=== PATIENT | female | born 1960 | race Caucasian/White ===

== ENCOUNTER → 2016-03-24 | Outpatient (CLI) | payer OTHER ==
--- NOTE | 2016-03-26 10:10 | MM ---
Reason for exam: screening (asymptomatic). Last mammogram was performed 1 year and 11 months ago. History: Patient is postmenopausal. Family history of premenopausal breast cancer in aunt at age 40. Benign excisional biopsy of the right breast, 1984. Took estrogen for 3 years beginning at age 45. Took progesterone for 3 years beginning at age 45. Physical Findings: A clinical breast exam by your physician is recommended on an annual basis and results should be correlated with mammographic findings. MG Screening Mammo w CAD Bilateral CC and MLO view(s) were taken. Prior study comparison: May 04, 2014, bilateral MG screening mammo w CAD. December 28, 2012, bilateral digital screening mammo w/CAD. There are scattered fibroglandular densities. Asymmetry greater in the left breast. No significant changes when compared with prior studies. ASSESSMENT: Benign, BI-RAD 2 RECOMMENDATION: Routine screening mammogram of both breasts in 1 year.
== END | disposition home or self-care (01) ==
LOC: RADMAMWWP 13:12
PROVIDERS: ATTEND Family Medicine
DX: Z12.31 Encounter for screening mammogram for malignant neoplasm of breast (principal)

== ENCOUNTER → 2016-07-17 | Outpatient (CLI) | payer OTHER ==
--- NOTE | 2016-07-20 08:36 | XR ---
EXAM TYPE: LUMBAR SPINE X RAY SERIES COMPARISON: NONE HISTORY: Chronic pain TECHNIQUE: 4 views are submitted. FINDINGS: Alignment is anatomic. The pedicles are intact. The transverse processes are intact. There is no s pondylolysis or spondylolisthesis. Sclerotic density overlying the left sacrum likely related to bon [place] island. Hypertrophic changes of the spine noted. Facet arthropathy at L4-5 and L5-S1. IMPRESSION: 1. Multilevel hypertrophic changes and facet arthropathy. Consider follow-up MRI.
--- NOTE | 2016-07-20 08:37 | XR ---
EXAMINATION TYPE: XR Hip Complete RT DATE OF EXAM: 07/17/2016 11:51 AM COMPARISON: NONE HISTORY: Pain TECHNIQUE: 2 views submitted FINDINGS: There is no evidence of erosive change or acute fracture. There is severe in near complete loss of joint space along the superior margin of the joint space. Hy pertrophic change of the acetabulum noted. Sclerotic density involving the greater trochanter likely the basis of bone island. IMPRESSION: 1. Severe arthritic changes correlate for osteoarthritis. Correlate for femoral acetabular impingemen t.
== END ==
LOC: RADXRYALE 11:32
PROVIDERS: ATTEND Family Medicine
DX: M46.86 Other specified inflammatory spondylopathies, lumbar region (principal); M16.11 Unilateral primary osteoarthritis, right hip
CPT/HCPCS: 72110; 73502

== ENCOUNTER → 2016-08-22 | Outpatient (CLI) | payer OTHER ==
--- NOTE | 2016-08-22 18:53 | MR ---
EXAMINATION TYPE: MR hip RT wo con DATE OF EXAM: 08/22/2016 COMPARISON: Right hip x-ray July 17, 2016. HISTORY: Right hip unilateral primary osteoarthritis per order. Right hip pain with limited movement for 3 months per patient. Standard multiplanar, multisequence MRI departmental protocol Multiplanar, multisequence images of the pelvis focusing on right hip were acquired. FINDINGS: Heterogeneity of bone marrow signal consistent with red marrow reconversion is identified t hroughout pelvis and both femurs. No suspicious edema visualized right proximal femur is seen. There are moderate-sized symmetric hip joint effusions identified bilaterally. There is moderate to severe axial joint space loss in both hips. No significant spurring or subchondral cystic change is present. Mild increased fluid is seen at level of greater trochanters bilaterally. No suspicious increased flu id is seen at level of lesser trochanters. Labrum appears grossly intact given limitation of nonarthr ogram study. Femoral head shapes are maintained bilaterally. Muscle bulk in the bilateral thighs is s ymmetric and felt within normal limits. No suspicious groin adenopathy is present. No concerning srinivasa l or fat-containing inguinal hernia is seen bilaterally. There is no suspicious bowel dilatation. Visualized uterus is felt within normal limits. No pelvic fl uid collection is seen. No pelvic adenopathy is noted. IMPRESSION: Moderate to severe osteoarthritic changes as detailed above
== END | disposition home or self-care (01) ==
LOC: RADMRIMAIN 11:21
PROVIDERS: ATTEND Family Medicine
DX: M16.11 Unilateral primary osteoarthritis, right hip (principal)

== ENCOUNTER → 2016-10-30 | Outpatient (CLI) | payer OTHER ==
[2016-10-30 13:44] LABS: CH 32.1; CHCM 32.9; HCT 45.3 % (34.0-46.0); HDW 2.21; HGB 14.9 gm/dL (11.4-16.0); MCH 32.2 pg (25.0-35.0); MCHC 32.9 g/dL (31.0-37.0); Mean Platelet Volume 8.7; RBC 4.62 m/uL (3.80-5.40); RDW 13.5 % (11.5-15.5); WBC 10.2 k/uL (3.8-10.6)
[2016-10-30 13:50] LABS: Partial Thromboplastin Time 24.8 sec (22.0-30.0); Prothrombin Time 10.1 sec (9.0-12.0)
[2016-10-30 13:58] LABS: Amorphous Sediment,Urine Few /hpf; Appearance,Urine Cloudy (Clear); Bilirubin,Urine Negative (Negative); Calcium Oxalate Crystals,Urine Few /hpf; Glucose,Urine (UA) Negative (Negative); Ketones,Urine Negative (Negative); Leukocyte Esterase,Urine Moderate (Negative); Nitrite,Urine Negative (Negative); PH, Urine 5.5 (5.0-8.0); Particle Count 3495; Protein,Urine Negative (Negative); RBC,Urine 3 /hpf (0-5); Specific Gravity,Urine 1.014 (1.001-1.035); Squamous Epithelial Cell,Urine 1 /hpf (0-4); UA Billing (MACRO vs. MICRO) MICRO; Urobilinogen,Urine <2.0 mg/dL (<2.0); WBC,Urine 3 /hpf (0-5)
[2016-10-30 14:02] LABS: ALT 54 U/L (9-52); AST 32 U/L (14-36); Alkaline Phosphatase 95 U/L (38-126); Anion Gap 14 mmol/L; Blood Urea Nitrogen 11 mg/dL (7-17); Calcium 11.2 mg/dL (8.4-10.2); Carbon Dioxide 29 mmol/L (22-30); Chloride 101 mmol/L (98-107); Glucose 62 mg/dL (74-99); Non-African American GFR(MDRD) >60 (>60 ml/min/1.73 sqM); Potassium 4.4 mmol/L (3.5-5.1); Sodium 144 mmol/L (137-145); Total Bilirubin 1.3 mg/dL (0.2-1.3); Total Protein 7.4 g/dL (6.3-8.2)
== END | disposition home or self-care (01) ==
LOC: LABWHC1 12:42
PROVIDERS: ATTEND Orthopaedic Surgery
DX: Z01.812 Encounter for preprocedural laboratory examination (principal)
CPT/HCPCS: 80053; 81001; 85027; 85610; 85730; 87070

== ENCOUNTER 2016-11-09 07:50 | Inpatient (IN) | payer OTHER ==
[2016-11-02 11:46] VITALS: BMI 29.9
[~2016-11-09 07:50] MED LIST: ACETAMINOPHEN TAB 500 MG TAB PO ONE; DEXAMETHASONE SOD PHOSPHATE 10 MG/ML 1 ML VIAL IV ONE; HYDROmorphone 1 MG/ML 1 ML SYRINGE IVP PRN; LIDOCAINE 1% 20 ML VIAL (10MG/ML) FOR IV START INTRADERMA PRN; MELOXICAM 7.5 MG TAB PO ONE; MIDAZOLAM 2 MG/2 ML VIAL IV PRN; ONDANSETRON 4 MG/2 ML VIAL IVP ONE; SCOPOLAMINE 1.5MG/72HR PATCH TRANSDERM ONE; TRANEXAMIC ACID 1,000 MG in SODIUM CHLORIDE 0.9% 100 ML IVPB ONE; ceFAZolin 2 GM in SODIUM CHLORIDE 0.9% 100 ML IVPB ONE
[2016-11-09] MEDS: LACTATED RINGERS 1,000 ML IV SCH (08:20)
[2016-11-09 08:22] LABS: Glucose,Whole Blood 126 mg/dL (75-99)
[2016-11-09] MEDS ORDERED: ONDANSETRON 4 MG/2 ML VIAL IVP PRN (09:50)
[2016-11-09] MEDS ORDERED: HYDROmorphone 1 MG/ML 1 ML SYRINGE IVP PRN ×3 (09:50)
[2016-11-09] MEDS ORDERED: MAGNESIUM HYDROXIDE 2,400 MG/10 ML CUP PO PRN (09:50)
[2016-11-09] MEDS ORDERED: hydrOXYzine PAMOATE 25 MG CAP PO PRN (09:50)
[2016-11-09] MEDS ORDERED: DIAZEPAM 5 MG TAB PO PRN ×2 (09:50)
[2016-11-09] MEDS ORDERED: NALOXONE 0.4 MG/ML 1 ML VIAL IV PRN (09:50)
[2016-11-09] MEDS ORDERED: TRANEXAMIC ACID 1,000 MG/10 ML VIAL ONE (10:06)
[2016-11-09] MEDS ORDERED: MIDAZOLAM 2 MG/2 ML VIAL ONE (10:06)
[2016-11-09] MEDS ORDERED: PROPOFOL 10 MG/ML 20 ML VIAL IV ONE (10:06)
[2016-11-09] MEDS ORDERED: SODIUM CHLORIDE 0.9% 100 ML BAG ONE (10:06)
[2016-11-09] MEDS ORDERED: fentaNYL (PF) 50 MCG/ML 2 ML AMP ONE (10:06)
[2016-11-09] MEDS: ROPIVACAINE 246.25 MG, EPINEPHrine 0.5 MG, KETOROLAC 30 MG, cloNIDine HCL/PF 80 MCG, WA... MISCELLANE ONE ×10 (10:37→11:21)
[2016-11-09] MEDS ORDERED: ceFAZolin 3,000 MG in SODIUM CHLORIDE 0.9% IRRIGATIO 3,000 ML IRRIGATION ONE (10:38)
[2016-11-09] MEDS ORDERED: LACTATED RINGERS 1,000 ML IV ONE (10:57)
--- NOTE | 2016-11-09 11:34 | P.OP ---
Date of Procedure: 11/09/16 Preoperative Diagnosis: Severe osteoarthritis right hip Postoperative Diagnosis: Severe osteoarthritis right hip Procedure(s) Performed: Right total hip arthroplasty with a direct anterior approach Implants: Caldwell and nephew Polarstem size 4 standard Caldwell [employer]hew R3, 3 hole acetabular shell, 52 mm [employer]dwell [employer]hew reflection 6.5 mm cancellus screw, 20 mm 2 [employer]dwell [employer]hew R3, XLPE 20 acetabular liner [employer]dwell [employer]hew Oxinium femoral head 36 m, +8 All components were press-fit. The articulation is ceramic on polyethylene. Anesthesia: spinal Surgeon: Benito Colorado Floorwalker #1: Yvonne Coe Estimated Blood Loss (ml): 275 (122 Returned with cell saver) Pathology: other (Femoral head) Condition: stable Disposition: PACU Indications for Procedure: After failure of conservative treatment we discussed the surgical and nonsurgical treatment options at length. Patient wishes to proceed with a total hip arthroplasty with a direct anterior approach. Complications specific to this procedure were discussed at length, including but not limited to infection, leg length discrepancy, dislocation, and nerve injury. Patient is aware of all these complications and informed consent was obtained Operative Findings: The operative findings are consistent with severe osteoarthritis of the right hip Description of Procedure: Patient was seen and evaluated in the preoperative area, consent was reviewed, and the surgical site was marked with a skin marker. Patient was then brought to the operating room and given prophylactic antibiotics intravenously. 1 g of Tranexamic acid was also given. A spinal anesthetic was administered by the anesthesia department. The patient was then placed on the [place] table with the bony prominences well-padded. The hip area was then prepped and draped in usual sterile fashion. A universal timeout was then performed, which confirmed the patient's name, surgical site, ALLERGIES, and procedure being performed. Next the incision site was located at 1 cm distal and 1 cm lateral to the anterior superior iliac spine. The skin and subcutaneous tissues were sharply incised. Incision was carefully dissected down to the fascia overlying the tensor fascia santos muscle. This fascia was then incised in line with the incision. Next, using blunt finger dissection, the tensor fascia santos muscle was dissected off its investing fascia. The muscle was then carefully retracted laterally with a cobra retractor over the lateral neck of the femur. Next, the circumflex vessels were identified and cauterized using the AquaMantis device. The anterior hip capsule was then exposed. The capsule was then opened and an inverted T fashion. Cobra retractors were then placed intracapsularly. The proximal femur was then visualized. The femoral neck was then osteotomized appropriate level above the lesser trochanter. Small amount of traction was placed with the [place] table. A small wedge of bone was then removed from the remaining femoral head. Next, using a corkscrew femoral head was easily removed from the acetabulum. On gross visual inspection, the femoral head had complete loss of articular cartilage in multiple periarticular osteophytes. Attention was then turned to the acetabulum. the acetabulum was exposed and any remaining labrum was excised. Sequential reaming of the acetabulum was performed using fluoroscopic guidance. When the appropriate size was reached, a trial was then placed. The position and fit of the trial was checked with fluoroscopy. The trial was then removed. Then, using fluoroscopic guidance, the final implant was impacted at 20 of anteversion and 40 of abduction, and fully seated in the acetabulum. 2 screws were then placed in the acetabulum. Again fluoroscopy was used to check position of the screws. Next, the liner was then impacted, with a 20 elevated liner located in the anterior superior quadrant. Component locking was confirmed. Attention was then directed to the femur. With the aid of the [place] table, the femur was externally rotated to approximately 130, extended, and abducted under the opposite leg. A side hook was then placed under the proximal femur, and the side hook elevator was used to elevate the proximal femur. Retractors were then placed. A capsular release was performed, as well as a release of the conjoined tendon, which afforded excellent visualization of the proximal femur. Next, a box osteotome was used to lateralize the proximal femur. A handle assembler was then used to locate the femoral canal. Sequential broaching was then performed with appropriate size which afforded excellent fixation in the proximal femur. A trial was then placed with appropriate head and neck, and the hip was gently reduced with the aid of the [place] table. Fluoroscopy was then used to check position of the components, as well as to ensure equal leg lengths. The hip was then gently dislocated and the trials were then removed. Final implants were then impacted and the hip was again reduced. Final fluoroscopic x-rays confirmed that the components were in anatomic position, as well as equal leg lengths. The hip was also taken through range of motion, and found to be stable. The hip was then copiously irrigated with antibiotic solution with pulsatile lavage. The hip was then irrigated with Irrisept solution. The soft tissues were then injected with a ropivacaine solution, which consisted of 246.25 mg of ropivacaine, 0.5 mg of epinephrine, 30 mg of Toradol, 80 g of clonidine, and 48.45 mL of sterile water, for a total of 100 mL of fluid injected. A second dose of 1 g of Tranexamic acid was also given. the fascia was then closed with 2-0 strata fix suture. The subcutaneous tissue was closed with 3-0 Vicryl. The subcuticular tissue was closed with 3-0 strata fix suture. The skin was then closed with Dermabond tape. The patient was then transferred to the recovery room in stable condition. The review assistant JON Rodney was required due to the complexity of surgery, and the need for skilled surgical instrument maker for positioning, draping, exposure, retraction, and closure of the wound.
--- NOTE | 2016-11-09 11:38 | XR ---
EXAMINATION TYPE: XR Hip Limited RT DATE OF EXAM: 11/09/2016 COMPARISON: NONE HISTORY: Postop hip TECHNIQUE: One view submitted. FINDINGS: There is a postsurgical change in near anatomic alignment. There is soft tissue edema and emphysema. IMPRESSION: 1. Postoperative change. Appears in near-anatomic alignment.
--- NOTE | 2016-11-09 12:20 | XR ---
EXAMINATION TYPE: XR Hip Limited RT DATE OF EXAM: 11/09/2016 COMPARISON: NONE HISTORY: Postop TECHNIQUE: One view submitted. FINDINGS: There is a prosthetic hip in near anatomic alignment. There is soft tissue edema and emphysema. IMPRESSION: 1. Postoperative change. Appears in near-anatomic alignment.
[2016-11-09] MEDS: HYDROcodone/APAP 7.5-325MG 1 EACH TAB PO PRN ×2 (15:13→20:26)
[2016-11-09] MEDS: SODIUM CHLORIDE 0.9% 1,000 ML IV SCH ×2 (15:16→21:35)
[2016-11-09] MEDS ORDERED: DOCUSATE 100 MG CAP PO PRN (15:26)
[2016-11-09] MEDS ORDERED: IPRATROPIUM-ALBUTEROL 3 ML NEB INHALATION PRN (15:29)
[2016-11-09] MEDS: IPRATROPIUM-ALBUTEROL 3 ML NEB INHALATION SCH ×2 (16:45→21:11)
[2016-11-09 17:12] LABS: Glucose,Whole Blood 321 mg/dL (75-99)
[2016-11-09] MEDS ORDERED: ALBUTEROL NEBULIZED 2.5 MG/3 ML INHALATION PRN (17:23)
[2016-11-09] MEDS ORDERED: INSULIN LISPRO (humaLOG) 300 UNIT/3 ML VIAL SQ SCH (17:30)
[2016-11-09] MEDS: ceFAZolin 2 GM in SODIUM CHLORIDE 0.9% 100 ML IVPB SCH ×2 (19:04→23:16)
[2016-11-09] MEDS: metFORMIN 500 MG TAB PO SCH (19:04)
[2016-11-09] MEDS: INSULIN LISPRO (humaLOG) 300 UNIT/3 ML VIAL SQ SCH ×2 (19:08→21:19)
[2016-11-09] MEDS ORDERED: SENNOSIDES-DOCUSATE SODIUM 1 EACH TAB PO SCH (21:00)
[2016-11-09] MEDS ORDERED: metFORMIN 500 MG TAB PO SCH (21:00)
[2016-11-09] MEDS ORDERED: GABAPENTIN 300 MG CAP PO SCH (21:00)
[2016-11-09] MEDS ORDERED: TEMAZEPAM 30 MG CAP PO SCH (21:00)
[2016-11-09 21:17] LABS: Glucose,Whole Blood 233 mg/dL (75-99)
[2016-11-09] MEDS: ASPIRIN 325 MG TAB PO SCH (21:18)
[2016-11-10 04:14] VITALS: TEMP 98.3
[2016-11-10] MEDS: HYDROcodone/APAP 7.5-325MG 1 EACH TAB PO PRN ×3 (06:00→12:05)
[2016-11-10 06:51] LABS: Glucose,Whole Blood 126 mg/dL (75-99)
[2016-11-10 07:06] VITALS: BP 119/67; PULSE 75; RESP 16
[2016-11-10] MEDS: metFORMIN 500 MG TAB PO SCH (07:09)
[2016-11-10] MEDS: ASPIRIN 325 MG TAB PO SCH (07:10)
[2016-11-10] MEDS: IPRATROPIUM-ALBUTEROL 3 ML NEB INHALATION SCH ×2 (07:14→11:50)
[2016-11-10 07:38] LABS: Basophils % (A) 0 %; CH 31.3; CHCM 32.7; Eosinophils # (A) 0.1 k/uL (0-0.7); Eosinophils % (A) 1 %; HCT 30.3 % (34.0-46.0); HDW 2.23; Luc # (Auto) 0.18; Luc % (Auto) 2; Lymphocytes # (A) 3.2 k/uL (1.0-4.8); Lymphocytes % (A) 26 %; MCH 32.1 pg (25.0-35.0); MCHC 33.3 g/dL (31.0-37.0); MCV 96.3 fL (80.0-100.0); Mean Platelet Volume 8.3; Monocytes # (A) 0.6 k/uL (0-1.0); Monocytes % (A) 5 %; Neutrophils # (A) 8.2 k/uL (1.3-7.7); Neutrophils % (A) 66 %; RBC 3.14 m/uL (3.80-5.40); RDW 13.1 % (11.5-15.5); WBC 12.4 k/uL (3.8-10.6); WBC (Perox) 13.45
[2016-11-10 07:46] LABS: HGB 10.1 gm/dL (11.4-16.0)
[2016-11-10] MEDS: LACTATED RINGERS 1,000 ML IV SCH (08:17)
[2016-11-10] MEDS: INSULIN LISPRO (humaLOG) 300 UNIT/3 ML VIAL SQ SCH (08:20)
--- NOTE | 2016-11-10 08:28 | P.DS ---
Providers Date of admission: 11/09/16 07:50 Expected date of discharge: 11/10/16 Attending physician: Benito Colorado Consults: 11/09/16 09:50 Consult Physician Routine Consulting Provider: Benito Gonzalez Consult Reason/Comments: medical management Do you want consulting provider notified?: Yes 11/09/16 14:27 Consult Physician Routine Consulting Provider: Laura Hall Consult Reason/Comments: medical management Do you want consulting provider notified?: Yes 11/09/16 15:26 Consult Physician Routine Consulting Provider: Laura Hall Consult Reason/Comments: medical managment Do you want consulting provider notified?: Already Contacted Primary care physician: Benito Gonzalez - Discharge Diagnosis(es) (1) Primary osteoarthritis of right hip Current Visit: Yes Status: Acute (2) S/P total hip arthroplasty Current Visit: Yes Status: Acute Hospital Course: This is a 56-year-old female with known history of degenerative arthritis of the right hip. The patient presents for evaluation. After discussion and consideration patient elects to proceed with total hip arthroplasty. The patient is seen preoperatively by Dr. Colorado and cleared for surgery. Patient is admitted to [facility] on 11/09/2016 for total hip arthroplasty. The procedures performed without complication or sequelae. The patient is doing well postoperatively. Labs and vital signs are stable on day of discharge. On day of discharge patient's hip incision is healing well. There is minimal erythema. There is minimal drainage noted at this time. There is minimal soft tissue swelling to the hip and thigh. Patient has full foot and ankle motion without difficulty or pain. Neurovascular status to the right lower extremity is intact. Patient is discharged home in good condition.Please see med rec for accurate list of home medications. Plan - Discharge Summary New Discharge Prescriptions: New Aspirin 325 mg PO BID #60 tab HYDROcodone/APAP 7.5-325MG [Snyder 7.5-325] 1 - 2 tab PO Q4-6H PRN #90 tab PRN Reason: Pain Sennosides-Docusate Sodium [Senokot-S] 1 tab PO BID #60 tablet No Action Gabapentin [Neurontin] 900 mg PO HS Ascorbic Acid [Vitamin C] 500 mg PO DAILY Harcourt-3 Fatty Acids/Fish Oil [Fish Oil 1,000 mg Softgel] 2 cap PO DAILY Calcium Carbonate/Vitamin D3 [Calcium 600-Vit D3 400 Tablet] 2 tab PO DAILY metFORMIN HCL [Glucophage] 500 mg PO HS Cholecalciferol [Vitamin D3] 2,000 unit PO DAILY Docusate [Colace] 100 mg PO BID PRN PRN Reason: Constipation traMADol HCL [Ultram] 50 mg PO QID PRN PRN Reason: Pain Citalopram Hydrobromide [CeleXA] 40 mg PO DAILY metFORMIN HCL [Glucophage] 1,000 mg PO BID Glimepiride [Amaryl] 4 mg PO 1500 Niacin 1,000 mg PO DAILY Albuterol Nebulized [Ventolin Nebulized] 2.5 mg INHALATION RT-Q4H PRN PRN Reason: sob Temazepam [Temazepam] 30 mg PO HS Discharge Medication List Ascorbic Acid [Vitamin C] 500 mg PO DAILY 05/27/15 [History] Calcium Carbonate/Vitamin D3 [Calcium 600-Vit D3 400 Tablet] 2 tab PO DAILY [History] Gabapentin [Neurontin] 900 mg PO HS 05/27/15 [History] Harcourt-3 Fatty Acids/Fish Oil [Fish Oil 1,000 mg Softgel] 2 cap PO DAILY [History] Albuterol Nebulized [Ventolin Nebulized] 2.5 mg INHALATION RT-Q4H PRN 11/02/16 [ History] Cholecalciferol [Vitamin D3] 2,000 unit PO DAILY 11/02/16 [History] Citalopram Hydrobromide [CeleXA] 40 mg PO DAILY 11/02/16 [History] Docusate [Colace] 100 mg PO BID PRN 11/02/16 [History] Glimepiride [Amaryl] 4 mg PO 1500 11/02/16 [History] Niacin 1,000 mg PO DAILY 11/02/16 [History] metFORMIN HCL [Glucophage] 1,000 mg PO BID 11/02/16 [History] metFORMIN HCL [Glucophage] 500 mg PO HS 11/02/16 [History] traMADol HCL [Ultram] 50 mg PO QID PRN 11/02/16 [History] Temazepam [Temazepam] 30 mg PO HS 11/09/16 [History] Aspirin 325 mg PO BID #60 tab 11/10/16 [Rx] HYDROcodone/APAP 7.5-325MG [Snyder 7.5-325] 1 - 2 tab PO Q4-6H PRN #90 tab [Rx] Sennosides-Docusate Sodium [Senokot-S] 1 tab PO BID #60 tablet 11/10/16 [Rx] Follow up Appointment(s)/Referral(s): Benito Colorado DO [Doctor of Osteopathic Medicine] - 2 Weeks Activity/Diet/Wound Care/Special Instructions: Weightbearing as tolerated with walker May shower after 2 days if no drainage from the incision Follow-up with [facility] in 2 weeks with any questions or concerns
--- NOTE | 2016-11-10 08:52 | CONS ---
DATE OF CONSULT: 11/09/16 REASON FOR CONSULTATION: Advice regarding diabetes and other medical issues requested by orthopedic surgery. HISTORY OF PRESENT ILLNESS: This 56 -year-old woman with past medical history of multiple complex medical problems including asthma, diabetes and DJD, being followed by Dr. Gonzalez in the outpatient setting, was admitted after right total knee joint arthroplasty. There is no history of fever, rigors or chills. No history of headache, loss of consciousness or seizures. The patient is on Metformin at home. PAST MEDICAL HISTORY: History of asthma, diabetes, DJD. History of cholecystectomy. MEDICATIONS: Prior to admission include Home medications are: 1. Temazepam 30 mg q.h.s. 2. Ultram 50 mg q.i.d. prn. 3. Glucovance 100 mg b.i.d. and 500 mg po q.h.s. 4. Fish oil. 5. Amaryl 4 mg po. 6. Neurontin 900 mg q.h.s. 7. Colace 100 mg b.i.d. 8. Celexa 40 mg po b.i.d. 9. Vitamin D3 2000 units. 10. Vitamin C 500 mg daily. 11. Ventolin nebulizer. ALLERGIES: FOSAMAX, ELAVIL, TETRACYCLINE, ADHESIVE TAPES. FAMILY HISTORY: History of bladder cancer in the family. SOCIAL HISTORY: History of occasional alcohol. Previous history of smoking. REVIEW OF SYSTEMS: HEENT: No diminished vision. No diminished hearing. Cardiovascular system: No angina or palpitations. Respiratory: No cough, hemoptysis. GI: No nausea or vomiting. : No dysuria. Nervous system: No numbness or weakness. Allergy/Immunology: No asthma or hayfever. Musculoskeletal: As mentioned earlier. Hematology/oncology: No history of anemia. Endocrine: As mentioned earlier. Constitutional: As mentioned earlier. Dermatology: Negative. Rheumatology: Negative. Psychiatry: As mentioned earlier. PHYSICAL EXAMINATION: The patient is alert and oriented times three. Pulse 78. Blood pressure 120/68. Respiratory rate 16. Temperature 97.7. Pulse ox 91% on room air. HEENT: Conjunctivae normal. NECK: No JVD. CARDIOVASCULAR: S1, S2. No S3, no S4. RESPIRATORY: Breath sounds diminished at the bases. A few scattered rhonchi. No crackles. Abdomen soft. Nontender. No mass palpable. LEGS: Status post surgery. REO ASSET MANAGER: Higher functions as mentioned earlier. Moves all four limbs. No focal deficits. Lymphatics: No lymph nodes palpable in the neck and axilla. Skin: No ulcer, rash or bleeding. Labs are Accu-Cheks 126, 321. ASSESSMENT: 1. Status post right total knee joint arthroplasty. 2. Diabetes mellitus Type 2. 3. Asthma. 4. History of degenerative joint disease. RECOMMENDATIONS AND DISCUSSION: Continue the current medications, continue symptomatic treatment. Resume the home medications, insulin to scale. DVT prophylaxis. Incentive spirometry. We will follow the patient closely with you. The patient may be asked to follow up with the primary care physician closely after discharge. Thank you Dr. Colorado for letting us participate in the care of this patient. JYOTI
[2016-11-10] MEDS ORDERED: CHOLECALCIFEROL 1,000 UNIT TAB PO SCH (09:00)
[2016-11-10] MEDS ORDERED: CITALOPRAM HYDROBROMIDE 20 MG TAB PO SCH (09:00)
[2016-11-10] MEDS ORDERED: ASCORBIC ACID 500 MG TAB PO SCH (09:00)
[2016-11-10] MEDS ORDERED: MELOXICAM 7.5 MG TAB PO SCH (09:00)
[2016-11-10] MEDS ORDERED: CALCIUM CARB-VIT D 500MG-200UN 1 EACH TAB PO SCH (09:00)
[2016-11-10 11:18] LABS: Glucose,Whole Blood 129 mg/dL (75-99)
[2016-11-10 11:42] LABS: Hemoglobin A1C 6.3 % (4.2-6.1)
--- NOTE | 2016-11-10 14:10 | P.PN ---
Progress Note - Text Clarification on consult for Dr. Hall Assessment: 1.status post right hip arthroplasty related to degenerative arthritis of right hip
--- NOTE | 2016-11-10 14:16 | P.PN ---
Subjective Date of service 11/10/2016. Personal being dictated for Dr. Judd Interval history: This a 56-year-old female status post right hip arthroplasty related to degenerative arthritis of right hip. Doing very well. Ambulating in hallway, tolerating increase in exertion well. Denies lightheadedness dizziness or focal deficits. Denies chest pain, palpitations or increasing shortness of breath. Good diet intake with Positive bowel movement. Objective - Vital Signs Vital signs: Vital Signs Temp 98.3 F 11/10/16 04:12 Pulse 75 11/10/16 07:05 Resp 16 11/10/16 07:05 BP 119/67 11/10/16 07:05 Pulse Ox 95 11/10/16 07:05 Intake & Output 11/09/16 11/10/16 11/10/16 18:59 06:59 18:59 Intake Total 1301 2170 Output Total 275 600 Balance 1026 1570 Weight 94.801 kg Intake: IV 1301 Intake, IV Titration 660 Amount Sodium Chloride 0.9% 1, 560 000 ml @ 70 mls/hr IV . [id number] [facility] Rx#:[id number] ceFAZolin 2 gm In Sodium 100 Chloride 0.9% 100 ml @ 100 mls/hr IVPB ONCE ONE Rx#:[id number] Oral 1510 Output: Urine 600 Estimated Blood Loss 275 Other: Voiding Method Toilet # Voids 4 - Exam PHYSICAL EXAM: VITAL SIGNS: [As above] GENERAL: [Sitting up in bed, no acute distress] HEENT: Conjunctivae normal. eyes normal. NECK: No JVD. No thyroid enlargement. No LNs CARDIOVASCULAR: S1, S2 muffled. No murmur RESPIRATION: Breath sounds diminished in the bases. No rhonchi or crackles. No bronchial breathing. ABDOMEN: Soft, nontender . No guarding. no masses palpable. No ascites, No hepatosplenomegaly.Bowel sounds heard. LEGS: No edema. no swelling NERVOUS SYSTEM: Cranial N 2-12 grossly normal. Moves all 4 limbs. No focal deficits. No sensory deficit. Skin: no ulcer, no rash Joints: No active swelling. No inflammation. - Labs CBC & Chem 7: 11/10/16 06:37 Labs: Abnormal Lab Results - Last 24 Hours (Table) 11/09/16 11/09/16 11/10/16 Range/Units 17:10 21:15 06:37 WBC (3.8-10.6) k/uL RBC (3.80-5.40) m/uL Hgb (11.4-16.0) gm/dL Hct (34.0-46.0) % Neutrophils # (1.3-7.7) k/uL POC Glucose (mg/dL) 321 H 233 H (75-99) mg/dL Hemoglobin A1c 6.3 H (4.2-6.1) % 11/10/16 11/10/16 11/10/16 Range/Units 06:37 06:47 11:15 WBC 12.4 H (3.8-10.6) k/uL RBC 3.14 L (3.80-5.40) m/uL Hgb 10.1 L D (11.4-16.0) gm/dL Hct 30.3 L (34.0-46.0) % Neutrophils # 8.2 H (1.3-7.7) k/uL POC Glucose (mg/dL) 126 H 129 H (75-99) mg/dL Hemoglobin A1c (4.2-6.1) % Assessment and Plan Plan: 1.status post right hip arthroplasty related to degenerative arthritis of right hip 2. Diabetes mellitus type 2 3. Asthma Plan: Continue on current medication regime ,monitoring and symptomatic treatment. Patient is being discharged home by orthopedics today. Follow-up with PCP in 1 week. Pain management and anticoagulation as per surgery. Incentive spirometer every hour 10 while awake, readvised. Further recommendations to follow. The impression and plan of care has been dictated as directed. : I performed a H&P examination of this patient and discussed the same with the dictator. I agree with the dictator's note. Any additional findings/opinions/ etc. will be noted.
[2016-11-10] MEDS ORDERED: GLIMEPIRIDE 4 MG TAB PO SCH (15:00)
== END 2016-11-10 13:20 | disposition home health service (06) | DRG 470 ==
LOC: 2ORMAIN 07:50 → 3SUR 13:54
PROVIDERS: ADMIT Orthopaedic Surgery; ATTEND Orthopaedic Surgery
PROC: 30233N0 Transfusion of Autologous Red Blood Cells into Peripheral Vein, Percutaneous Approach (ICD-10-PCS; 2016-11-09)
PROC: 0SR904A Replacement of Right Hip Joint with Ceramic on Polyethylene Synthetic Substitute, Uncemented, Open Approach (ICD-10-PCS; principal; 2016-11-09 09:45)
DX: M16.11 Unilateral primary osteoarthritis, right hip (principal); E11.9 Type 2 diabetes mellitus without complications; M25.751 Osteophyte, right hip; J45.909 Unspecified asthma, uncomplicated; F41.9 Anxiety disorder, unspecified; Z96.651 Presence of right artificial knee joint; Z90.49 Acquired absence of other specified parts of digestive tract; Z87.891 Personal history of nicotine dependence; Z80.52 Family history of malignant neoplasm of bladder; Z79.899 Other long term (current) drug therapy; Z88.1 Allergy status to other antibiotic agents; Z88.8 Allergy status to other drugs, medicaments and biological substances; Z91.048 Other nonmedicinal substance allergy status; Z79.84 Long term (current) use of oral hypoglycemic drugs; Z83.3 Family history of diabetes mellitus; Z90.722 Acquired absence of ovaries, bilateral
CPT/HCPCS: 73501; 83036; 85025; 86850; 86891; 86900; 86901; 88300

== ENCOUNTER → 2017-04-14 | Outpatient (CLI) | payer OTHER ==
[2017-04-14 13:16] LABS: HCT 40.3 % (34.0-46.0); HGB 12.8 gm/dL (11.4-16.0); MCH 30.9 pg (25.0-35.0); MCHC 31.9 g/dL (31.0-37.0); MCV 96.9 fL (80.0-100.0); Platelet Count 234 k/uL (150-450); RBC 4.16 m/uL (3.80-5.40); RDW 13.6 % (11.5-15.5); WBC 8.5 k/uL (3.8-10.6)
[2017-04-14 13:24] LABS: Partial Thromboplastin Time 23.7 sec (22.0-30.0); Prothrombin Time 9.8 sec (9.0-12.0)
[2017-04-14 13:27] LABS: Appearance,Urine Cloudy (Clear); Bilirubin,Urine Negative (Negative); Blood,Urine Negative (Negative); Calcium Oxalate Crystals,Urine Few /hpf; Color,Urine Yellow; Glucose,Urine (UA) Negative (Negative); Hyaline Casts,Urine 3 /lpf (0-2); Ketones,Urine Negative (Negative); Leukocyte Esterase,Urine Moderate (Negative); Mucus,Urine Rare /hpf; Nitrite,Urine Negative (Negative); PH, Urine 5.5 (5.0-8.0); Protein,Urine Negative (Negative); RBC,Urine 4 /hpf (0-5); Specific Gravity,Urine 1.017 (1.001-1.035); Squamous Epithelial Cell,Urine 2 /hpf (0-4); Urobilinogen,Urine <2.0 mg/dL (<2.0); WBC,Urine 4 /hpf (0-5)
[2017-04-14 13:43] LABS: ALT 49 U/L (9-52); AST 35 U/L (14-36); Albumin 4.2 g/dL (3.5-5.0); Alkaline Phosphatase 82 U/L (38-126); Anion Gap 12 mmol/L; Blood Urea Nitrogen 12 mg/dL (7-17); Calcium 10.1 mg/dL (8.4-10.2); Carbon Dioxide 32 mmol/L (22-30); Chloride 102 mmol/L (98-107); Glucose 91 mg/dL (74-99); Potassium 3.7 mmol/L (3.5-5.1); Sodium 146 mmol/L (137-145); Total Bilirubin 1.1 mg/dL (0.2-1.3); Total Protein 6.7 g/dL (6.3-8.2)
== END | disposition home or self-care (01) ==
LOC: LABPAT 12:39
PROVIDERS: ATTEND Orthopaedic Surgery Sports Medicine
DX: Z01.818 Encounter for other preprocedural examination (principal); Z01.812 Encounter for preprocedural laboratory examination
CPT/HCPCS: 36415; 80053; 81001; 85027; 85610; 85730; 87070

== ENCOUNTER 2017-04-29 09:22 | Inpatient (IN) | payer OTHER ==
[2017-04-22 15:23] VITALS: BMI 28.7
[~2017-04-29 09:22] MED LIST changes: +HYDROmorphone 0.5 MG/0.5 ML SYRINGE IVP PRN; -HYDROmorphone 1 MG/ML 1 ML SYRINGE IVP PRN; +LACTATED RINGERS 1,000 ML IV SCH; -TRANEXAMIC ACID 1,000 MG in SODIUM CHLORIDE 0.9% 100 ML IVPB ONE; +TRANEXAMIC ACID 1,000 MG in SODIUM CHLORIDE 0.9% 50 ML IVPB ONE; -ceFAZolin 2 GM in SODIUM CHLORIDE 0.9% 100 ML IVPB ONE; +ceFAZolin IN SWFI 2 GM/20 ML SYRINGE IVP ONE
[2017-04-29] MEDS ORDERED: ROPIVACAINE 246.25 MG, EPINEPHrine 0.5 MG, KETOROLAC 30 MG, cloNIDine HCL/PF 80 MCG, WA... MISCELLANE ONE ×5 (09:32)
[2017-04-29] MEDS ORDERED: LIDOCAINE 1% 20 ML VIAL (10MG/ML) FOR IV START INTRADERMA ONE (10:12)
[2017-04-29 10:39] LABS: Glucose,Whole Blood 107 mg/dL (75-99)
[2017-04-29] MEDS ORDERED: TRANEXAMIC ACID 1,000 MG/10 ML VIAL ONE (11:26)
[2017-04-29] MEDS ORDERED: SODIUM CHLORIDE 0.9% 100 ML BAG ONE (11:26)
[2017-04-29] MEDS ORDERED: fentaNYL (PF) 50 MCG/ML 2 ML AMP ONE (11:26)
[2017-04-29] MEDS ORDERED: diphenhydrAMINE 50 MG/ML 1 ML VIAL ONE (11:26)
[2017-04-29] MEDS ORDERED: MIDAZOLAM 2 MG/2 ML VIAL ONE (11:26)
[2017-04-29] MEDS ORDERED: ceFAZolin 3,000 MG in SODIUM CHLORIDE 0.9% IRRIGATIO 3,000 ML IRRIGATION ONE ×2 (11:45→12:34)
[2017-04-29] MEDS ORDERED: ceFAZolin 1,000 MG in SODIUM CHLORIDE 0.9% 1,000 ML IRRIGATION ONE (12:31)
[2017-04-29] MEDS ORDERED: ONDANSETRON 4 MG/2 ML VIAL IVP PRN ×2 (12:41→13:23)
[2017-04-29] MEDS ORDERED: NALOXONE 0.4 MG/ML 1 ML VIAL IV PRN (12:41)
[2017-04-29] MEDS ORDERED: diphenhydrAMINE 50 MG/ML 1 ML VIAL IVP PRN (12:41)
[2017-04-29] MEDS ORDERED: MORPHINE SULFATE 4 MG/ML SYRINGE IVP PRN (12:41)
[2017-04-29] MEDS ORDERED: BISACODYL 10 MG SUPP RECTAL PRN (13:23)
[2017-04-29] MEDS ORDERED: ACETAMINOPHEN TAB 325 MG TAB PO PRN (13:23)
[2017-04-29] MEDS ORDERED: MAGNESIUM HYDROXIDE 2,400 MG/10 ML CUP PO PRN (13:23)
[2017-04-29] MEDS ORDERED: NA PHOS,M-B/NA PHOS,DI-BA 133 ML ENEMA RECTAL PRN (13:23)
[2017-04-29] MEDS ORDERED: HYDROcodone/APAP 10-325MG 1 EACH TAB PO PRN ×2 (13:23)
[2017-04-29] MEDS ORDERED: HYDROmorphone 0.5 MG/0.5 ML SYRINGE IVP PRN ×2 (13:23)
[2017-04-29] MEDS ORDERED: TEMAZEPAM 15 MG CAP PO PRN (13:23)
[2017-04-29] MEDS ORDERED: hydrOXYzine PAMOATE 25 MG CAP PO PRN (13:23)
[2017-04-29] MEDS ORDERED: traMADol 50 MG TAB PO PRN (13:23)
[2017-04-29] MEDS ORDERED: DIAZEPAM 5 MG TAB PO PRN (13:23)
--- NOTE | 2017-04-29 13:44 | XR ---
EXAMINATION TYPE: XR knee limited LT DATE OF EXAM: 04/29/2017 COMPARISON: NONE TECHNIQUE: Two views submitted HISTORY: Post op FINDINGS: There is a prosthetic knee in near anatomic alignment. There is soft tissue edema and emphysema. IMPRESSION: 1. Postoperative change. Appears in near-anatomic alignment
[2017-04-29 14:07] LABS: Glucose,Whole Blood 149 mg/dL (75-99)
--- NOTE | 2017-04-29 15:39 | OP ---
OPERATIVE REPORT DATE OF PROCEDURE: 04/29/2017. PREOPERATIVE DIAGNOSIS: Left knee osteoarthrosis. POSTOPERATIVE DIAGNOSIS: Left knee osteoarthrosis. PROCEDURE: Left total knee arthroplasty. SURGEON: González iCd M.D. PLUMBING ASSEMBLER INSTALLER: Caleb TREVINO. ANESTHESIA: Spinal with sedation. ESTIMATED BLOOD LOSS: 100 mL. TOURNIQUET TIME: 44 minutes at 250 mmHg. COMPLICATIONS: None apparent. DRAINS: None. DISPOSITION: Postanesthesia care unit. INDICATIONS: Rosario is a very pleasant 56-year-old female with longstanding history of left knee pain. History and physical examination are consist with advanced left knee osteoarthrosis. She has been through significant nonoperative management up to this point. Further treatment options were discussed and she has decided to go forward with left total knee arthroplasty. The risks of procedure were discussed with her in detail. These risks include, but are not limited to risk of infection, nerve damage, bleeding, pain, and a small risk of deep vein thrombosis which could lead to fatal pulmonary embolism. There is also risk of loosening of the implant which could require revision operation. The patient understands these risks. All of her questions were answered to her satisfaction. Appropriate informed consent was obtained. DESCRIPTION OF PROCEDURE: The patient was identified in the preoperative holding area. Surgical sites marked by both the patient myself. She was given 3 g of Ancef IV for prophylactic purposes. She was then transferred to the operative suite. She was placed supine on the operative table. Spinal anesthetic was then administered dosed per the anesthesia without apparent complication. Examination under anesthesia was then performed. The patient was 2-3 degrees shy of full extension. She had 100 degrees of flexion. The medial collateral ligament, lateral collateral ligament posterior cruciate ligaments were stable. Tourniquet was then placed high on the left upper thigh well-padded in preparation for surgery. The patient's left lower extremity was then prepped and draped in usual sterile fashion. Standard surgical pause undertaken to ensure that we were operating on the correct site and that appropriate preoperative antibiotics were given. All staff in the room in agreement and we proceeded. The outlines of the patella were marked surgical pen. A planned 12 cm vertical incision centered over the patella was marked surgical pen. The leg was then exsanguinated with an Esmarch dressing. The knee was then flexed and the tourniquet was inflated to 250 mmHg. The total tourniquet time for the procedure was 44 minutes. An incision was then made with a 10 blade scalpel. Dissection was carried down sharply overlying fascia. Great care was taken to minimize the skin flaps. The knee was then exposed using a standard medial parapatellar approach. A small cuff of quadriceps tendon was then left for suturing. She was in a very mild amount of valgus preoperatively. A very minimal medial release was made just to allow for placement of the retractors. The medial meniscus was then excised as well. The lateral meniscus was also released anteriorly. The leg was then externally rotated. The patella was everted. The knee was flexed. The retractors was then placed to protect the collateral ligaments. I then proceeded to remove the infrapatellar fat pad. This was excised sharply tangentially with fibers of the patellar tendon. I then proceeded to remove peripheral osteophytes. This was done with a rongeur. I then proceeded with the distal femoral resection. She did have near full extension. A planned 9 mm resection was then done. The femoral canal was then entered in midline of the femur approximately 10 mm anterior to the origin of the posterior cruciate ligament. The monica was then advanced down the center of the femur and placed intramedullary. Based on preop radiographs, the angle between the anatomic and mechanical axis of the femur was approximately 4-5 degrees. The valgus angle the distal femoral cutting guide was then set at 4 degrees for the left knee. The distal femoral cutting guide was then advanced over the intramedullary monica. This was seated firmly against the femur. I then as mentioned planned to take 9 mm off the distal femur. The cutting block was then secured onto the femur with pins. The jig was then removed. The distal femoral cut was made through the slot of the block. The pin was then removed. The distal femoral cutting block was removed. The accuracy of the distal femoral cuts was checked with 2 flat bars. I then proceeded with femoral sizing. Posterior referencing sizing guide was held firmly against the resected distal surface of the femur. Posterior condyles were resting on the posterior plane of the guide. The sizing stylus was then placed onto the anterior femur. This size was measured as a size 8 narrow. I then assessed for femoral rotation. Plan was for 3 degrees of external rotation. 3 degrees external rotation was placed onto the jig. These holes were then marked. I then confirmed the rotation by 3 separate methods. This was done using epicondylar axis as well as Whitesides line and posterior referencing. It was deemed that the external rotation was proper. I then went forward placing the femoral cutting block. This was placed over the previously placed pin holes. The Jose Carlos wing was then placed on the anterior slots to ensure that we would not notch the anterior femur with the anterior femoral cut. I then proceed with the anterior femoral cut. This was flush with the anterior cortex of the femur. Posterior cuts were then made followed by the anterior chamfer cut, then the posterior chamfer cut. The cutting block was then removed throughout the resection, the collateral ligaments were protected with retractors. I then placed a trial size 8 femur. It fit very nice medial-lateral, although I did decide to go with a narrow and fit flush with the distal end of the femur. The drill holes were then made. I then proceeded with the tibial cut. Planned for cruciate retaining knee. The guide was then placed and set for varus valgus and for slope. The height was set for approximate 2 mm resection from the medial tibial plateau which was the lower side. I was happy with the alignment and the amount of resection. The cutting block was then pinned to the proximal tibia. The alignment monica was removed. The proximal tibia was resected with a reciprocating saw. Again this was done with retractors protecting the collateral ligaments as well as the posterior cruciate ligament. I then proceeded to evaluate the flexion extension gaps. A 10 mm block was placed. The flexion-extension gaps were equal. I then proceeded with resection of posterior osteophytes. She had very minimal posterior osteophytes. This was done with a curved osteotome. This resected the posterior osteophytes and posterior capsule stripping was also done off the posterior aspect of the femur at this time. The osteophytes were removed. I then proceeded with resection of patella. The thickness of patella was measured using the caliper. The thickness was 22 mm. The thickness of the anticipated patellar dome was taken into account. Resection was then performed and confirmed to be equal in 4 quadrants using a caliper. Approximately 14 mm of bone remained after the resection. A 29 x 8 standard patellar trial was then placed. The holes were then drilled. The trial was then placed. I then proceeded with sizing the tibial plate. A size D tibial plate fit very nicely. I then placed the trial femur the tibial tray and patellar button. A 10 mm trial tibial insert was also placed. The components were fit very nicely. She had full flexion and extension. The extension and flexion gaps were equal and stable to both varus and valgus stress. The patella tracked appropriately. The tibial tray rotation was marked with a Bovie. This was externally rotated properly. I then proceed with tibial preparation. I first drilled the femoral holes removed femoral component. The tibial tray was then set for proper external rotation as well as mediolateral placement onto the tibia. It was then pinned into place. I then proceeded with punching the keel. I then decided to proceed with cementing of all of our components. The knee was thoroughly irrigated with sterile saline solution via pulse lavage. The lateral geniculate artery was identified and cauterized. All blood was removed from the bone of the tibia femur and patella with pulse lavage. I then proceed with cementing. Two packs of antibiotic bone cement prepared on the back table by the surgical technician. I then proceed with cementing the tibia first. The cement was impacted into the keel as well as deeply seated in the bone. A 2nd coat of cement was then placed. The tibia was then impacted into place. Excess cement was removed with Madhavi's and jokers. I then proceed with cementing the femoral component. Femoral component was also cemented using standard technique. Excess cement was removed. A 10 mm trial insert was then placed into the knee. It was brought into full extension with a constant axial load placed until the cement hardened. The patellar component was then cemented. This was held firmly with a compressive device until the cement had dried. When the cement dried, the knee was taken out of extension. All excess cement was removed from around the prosthesis. I then trialed the knee with a 10 mm insert. Flexion extension gaps were equal and were appropriate. I then trialed with a 12. The knee was stable. It came into full extension. I decided to go forward with a 10 mm cross-linked cruciate-retaining tibial insert. Polyethylene was then placed onto the tibial tray and locked into place. The knee was then reduced. The knee was then again further irrigated with sterile saline solution with antibiotic added. The tourniquet was then deflated. The total tourniquet time for the procedure was 44 minutes at 250 mmHg. Final components were a Kallie persona size 8 narrow cruciate-retaining femoral component, a size D tibial tray, a 10 mm medial congruent cruciate-retaining polyethylene insert and 29 x 8 mm patella. I then proceeded with closure. Again, the knee was thoroughly irrigated with antibiotic impregnated sterile saline solution. The quadriceps tendon and the medial retinaculum were reapproximated with #2 Ethibond suture. The extensor mechanism was then closed with an running #2 Quill suture. Subcutaneous tissues were then closed with 2-0 Vicryl suture. The skin was closed with a running 3-0 Quill suture. Dermabond was applied to the incision. Sterile compressive dressings were then applied. All sponge, needle counts were deemed correct prior to closure. The patient tolerated the procedure without apparent complication. She was transferred recovery room in stable condition. MMODL / IJN: [id number] /
[2017-04-29] MEDS: ceFAZolin IN SWFI 2 GM/20 ML SYRINGE IVP SCH ×2 (16:07→23:52)
[2017-04-29] MEDS: LACTATED RINGERS 1,000 ML IV SCH ×2 (16:08→20:20)
[2017-04-29] MEDS ORDERED: ALBUTEROL NEBULIZED 2.5 MG/3 ML INHALATION PRN (16:46)
[2017-04-29] MEDS ORDERED: SENNOSIDES-DOCUSATE SODIUM 1 EACH TAB PO PRN (16:46)
--- NOTE | 2017-04-29 17:15 | PN ---
PROGRESS NOTE DATE OF VISIT: 04/29/2017. Rosario is postoperative left total knee arthroplasty. This was done earlier today. I visited her on the floor this evening. She is resting quite well. She is able to completely do a straight leg raise in the bed. Her pain is very well controlled at this point in time. She has no complaints. PHYSICAL EXAM: Examination of the dressing is dry. She has intact flexion-extension, inversion- eversion of her ankle. She has intact flexion-extension of her toes and she has 2+ posterior tibial pulse with brisk capillary refill in all of her digits. IMPRESSION: Status post left total knee arthroplasty. RECOMMENDATIONS: Rosario is doing very well in the immediate postoperative period. I will continue with the normal postoperative protocol. She will utilize aspirin b.i.d. for DVT prophylaxis. She will start with physical therapy tomorrow morning. TRACEY / OXANA: [id number] /
[2017-04-29 17:30] LABS: Glucose,Whole Blood 302 mg/dL (75-99)
[2017-04-29] MEDS: INSULIN ASPART 100 UNIT/ML 1 ML 10 ML VIAL SQ SCH ×2 (17:53→21:31)
[2017-04-29] MEDS: metFORMIN 500 MG TAB PO SCH (20:20)
[2017-04-29] MEDS: ASPIRIN 325 MG TAB PO SCH (20:22)
[2017-04-29 20:33] LABS: Glucose,Whole Blood 166 mg/dL (75-99)
[2017-04-29] MEDS ORDERED: SENNOSIDES-DOCUSATE SODIUM 1 EACH TAB PO SCH (21:00)
[2017-04-29] MEDS ORDERED: TEMAZEPAM 30 MG CAP PO SCH (21:00)
--- NOTE | 2017-04-29 22:29 | P.CONS ---
History of Present Illness - Reason for Consult Consult date: 04/29/17 Medical management of hypertension and other medical problems - Chief Complaint Left total knee arthroplasty - History of Present Illness Patient is a 56-year-old female with a known history of hypertension, diabetes type 2. Ose-jooafaq-dcyljkpwg, arthritis and asthma and previous history of smoking was admitted to the hospital for left total knee arthroplasty. Patient previously had right total knee as well as right hip replacement. Otherwise patient tolerated the procedure very well. Currently pain is controlled. No commerce of chest pain or shortness of breath. No nausea vomiting or abdominal pain. No headache or dizziness or lightheadedness. No fever no chills. Review of Systems Constitutional: Patient denies any fever or chills . No generalized weakness or weight loss. Abdomen: Patient denied nausea vomiting and diarrhea and abdominal pain. Cardiovascular: Patient denies any chest pain or short of breath no palpitations. Respiratory: patient denied any cough is from production. No shortness of breath Neurologic: Patient denied any numbness or tingling headache. Musculoskeletal: Patient denies any complaints of joint swelling or deformity. Skin: Negative Psychiatric: Negative Endocrine: No heat or cold intolerance. No recent weight gain. Genitourinary: No dysuria or hematuria. 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), type II diabetes, osteopenia History of Any Multi-Drug Resistant Organisms: MRSA Year Discovered:: 06/25/15 MDRO Source:: URINE Past Surgical History: Cholecystectomy, Hernia Repair, Tonsillectomy Additional Past Surgical History / Comment(s): HERNIA REPAIR BABY, INTESTINAL BYPASS WITH GALL BLADDER DUE TO BLOCKAGE AT BILE DUCT(2005), RECONSTRUCTIVE SURGERY RIGHT FOOT X2, RIGHT OVARY AND TUBE REMOVED, LEFT PARTIAL OVARY REMOVED .06-06-15 TOTAL RT KNEE, rt hip replacement Past Anesthesia/Blood Transfusion Reactions: No Reported Reaction Past Psychological History: Anxiety Smoking Status: Former smoker Past Alcohol Use History: Rare Additional Past Alcohol Use History / Comment(s): QUIT SMOKING 4-5 YEARS AGO. SMOKED OVER 10 YEARS. SMOKED 1/2 PPD OR LESS. Past Drug Use History: None Reported - Past Family History Father Family Medical History: Cancer Additional Family Medical History / Comment(s): BLADDER CANCER. Mother Family Medical History: Hyperlipidemia, Hypertension Medications and Allergies Home Medications Medication Instructions Recorded Confirmed Type Ascorbic Acid [Vitamin C] 500 mg PO DAILY 05/27/15 04/29/17 History Calcium Carbonate/Vitamin D3 2 tab PO DAILY 05/27/15 04/29/17 History [Calcium 600-Vit D3 400 Tablet] Gabapentin [Neurontin] 900 mg PO HS 05/27/15 04/29/17 History [place]-3 Fatty Acids/Fish Oil [Fish 2 cap PO DAILY 05/27/15 04/29/17 History Oil 1,000 mg Softgel] Albuterol Nebulized [Ventolin 2.5 mg INHALATION RT-Q4H PRN 11/02/16 04/29/17 History Nebulized] Cholecalciferol [Vitamin D3] 2,000 unit PO DAILY 11/02/16 04/29/17 History Citalopram Hydrobromide [CeleXA] 40 mg PO DAILY 11/02/16 04/29/17 History Glimepiride [Amaryl] 4 mg PO DAILY@1500 11/02/16 04/29/17 History Niacin 1,000 mg PO DAILY 11/02/16 04/29/17 History metFORMIN HCL [Glucophage] 1,000 mg PO BID 11/02/16 04/29/17 History traMADol HCL [Ultram] 50 mg PO QID PRN 11/02/16 04/29/17 History Temazepam 30 mg PO HS 11/09/16 04/29/17 History HYDROcodone/APAP 7.5-325MG [[place] 1 tab PO BID 04/22/17 04/29/17 History 7.5-325] Sennosides-Docusate Sodium 1 tab PO DAILY PRN 04/22/17 04/29/17 History [Senokot-S] Sulfamethox-Tmp 800-160Mg [Bactrim 1 tab PO BID 04/29/17 04/29/17 History DS 800-160 mg] Allergies Allergy/AdvReac Type Severity Reaction Status Date / Time alendronate sodium Allergy Unknown JOINT PAIN Verified 04/29/17 14:00 [From Fosamax] amitriptyline HCl Allergy Unknown HEART Verified 04/29/17 14:00 [From Elavil] PALPITATIONS tetracycline Allergy Unknown Rash/Hives, Verified 04/29/17 14:00 RED CHEEKS adhesive tape AdvReac Severe MARIE Verified 04/29/17 14:00 SKIN, SORES Physical Exam Vitals: Vital Signs Temp Pulse Pulse Resp BP BP Pulse Ox 04/29/17 13:41 71 16 109/56 98 04/29/17 13:26 97.3 F L 74 16 96/63 93 L 04/29/17 09:57 97.2 F L 80 18 128/72 93 L Intake and Output 04/28/17 04/29/17 04/29/17 22:59 06:59 14:59 Intake Total 1251 Output Total 100 Balance 1151 Intake: IV 1251 Output: Estimated Blood Loss 100 PHYSICAL EXAMINATION: Patient is lying in the bed comfortably, no acute distress, awake alert and oriented.. HEENT: Normocephalic. Neck is supple. Pupils reactive. Nostrils clear. Oral cavity is moist. Ears reveal no drainage. Neck reveals no JVD, carotid bruits, or thyromegaly. CHEST EXAMINATION: Trachea is central. Symmetrical expansion. Lung jesus clear to auscultation and percussion. CARDIAC: Normal S1, S2 with no gallops. No murmurs ABDOMEN: Soft. Bowel sounds normal. No organomegaly. No abdominal bruits. Extremities: reveal no edema. No clubbing or cyanosis. Left knee surgical site intact. No swelling Neurologically awake, alert, oriented x3 with well-coordinated movements. No focal deficits noted Skin: No rash or skin lesions. Psychiatric: Coperative. Nonsuicidal Musculoskeletal: No joint swelling or deformity. Normal range of motion. Results Labs: Abnormal Lab Results - Last 24 Hours (Table) 04/29/17 Range/Units 10:08 POC Glucose (mg/dL) 107 H (75-99) mg/dL Assessment and Plan Assessment: Status post left total knee arthroplasty Osteoarthritis of multiple joints Hypertension controlled Diabetes type 2 yuz-ezzwalu-szquahdaf Asthma DVT prophylaxis Plan: Patient be continued on home diabetic medications including Amaryl and metformin. Insulin sliding scale. Continue with home medications and pain management along with bowel regimen. DVT prophylaxis. Encourage ambulation and PTOT. We will continue to follow closely. Further recommendations based on the clinical course. We'll check CBC and BMP. Thank you for your consult Time with Patient: Greater than 30
[2017-04-30] MEDS: HYDROmorphone 4 MG/ML 1 ML SYRINGE IVP PRN ×2 (03:55→06:26)
[2017-04-30] MEDS: LACTATED RINGERS 1,000 ML IV SCH ×2 (04:43→06:30)
[2017-04-30 07:01] VITALS: BP 118/70; PULSE 72; RESP 14; TEMP 98.2
[2017-04-30 07:01] LABS: Glucose,Whole Blood 168 mg/dL (75-99)
[2017-04-30 07:37] LABS: Anion Gap 7 mmol/L; Blood Urea Nitrogen 17 mg/dL (7-17); Calcium 8.7 mg/dL (8.4-10.2); Carbon Dioxide 29 mmol/L (22-30); Chloride 103 mmol/L (98-107); Glucose 150 mg/dL (74-99); Potassium 4.1 mmol/L (3.5-5.1); Sodium 139 mmol/L (137-145)
[2017-04-30 07:54] LABS: Basophils % (A) 0 %; Eosinophils # (A) 0.1 k/uL (0-0.7); Eosinophils % (A) 1 %; HGB 10.5 gm/dL (11.4-16.0); Lymphocytes # (A) 3.2 k/uL (1.0-4.8); Lymphocytes % (A) 27 %; MCH 30.9 pg (25.0-35.0); MCHC 31.9 g/dL (31.0-37.0); Mean Platelet Volume 8.2; Monocytes # (A) 0.6 k/uL (0-1.0); Monocytes % (A) 5 %; Neutrophils # (A) 7.9 k/uL (1.3-7.7); Neutrophils % (A) 66 %; Platelet Count 212 k/uL (150-450); RDW 13.8 % (11.5-15.5); WBC 11.9 k/uL (3.8-10.6)
[2017-04-30] MEDS: ASPIRIN 325 MG TAB PO SCH (08:10)
[2017-04-30] MEDS: INSULIN ASPART 100 UNIT/ML 1 ML 10 ML VIAL SQ SCH ×2 (08:10→12:07)
[2017-04-30] MEDS: metFORMIN 500 MG TAB PO SCH (08:10)
--- NOTE | 2017-04-30 08:19 | P.PN ---
Progress Note - Text Date: 04/30/2017 Time: 0707 The patient is status post, left total knee arthroplasty. Vital signs stable VAS:[ 2-10] The patient does not exhibit any nausea vomiting or headache. The patient incurred some minimal itching yesterday, this itching is now subsiding. Pain meds to be managed by service.
[2017-04-30] MEDS ORDERED: CITALOPRAM HYDROBROMIDE 20 MG TAB PO SCH (09:00)
[2017-04-30 11:55] LABS: Glucose,Whole Blood 109 mg/dL (75-99)
[2017-04-30] MEDS ORDERED: MULTIVITAMINS, THERA 1 EACH TAB PO SCH (12:00)
--- NOTE | 2017-04-30 12:18 | P.DS ---
Providers Date of admission: 04/29/17 09:22 Expected date of discharge: 04/30/17 Attending physician: González Cid Consults: 04/29/17 13:23 Consult Physician Routine Consulting Provider: Laura Hall Consult Reason/Comments: post op medical management Do you want consulting provider notified?: Yes Primary care physician: Stated None - Discharge Diagnosis(es) (1) S/P total knee arthroplasty Patient was admitted to the OR on 04/29/17 to undergo left total knee arthroplasty. She had failed conservative measures as an outpatient and desired to proceed with elective surgery after given informed consent. She underwent the above procedure which she tolerated well without complication. Postoperative hospital course has remained without complication. On day of discharge she is afebrile, vital signs stable, labs within acceptable ranges, tolerating by mouth meds and diet, voiding without difficulty, positive flatus, denies abdominal pain or calf pain, pain is controlled on oral pain medication and has no new complaints. Wound is benign, neurovascular status is intact, calf is soft and nontender, abdomen soft and nontender. Review of systems is negative for numbness, tingling, fever, chills, chest pain, shortness breath, nausea, vomiting, dizziness, headaches, slurred speech or other. Current Visit: No Status: Acute Priority: Medium Procedures: Left TKA Patient Condition at Discharge: Good Plan - Discharge Summary Discharge Rx Participant: Yes New Discharge Prescriptions: New Docusate [Colace] 100 mg PO BID #60 capsule HYDROcodone/APAP 10-325MG [[place] 10-325] 1 tab PO Q4HR PRN #90 tab PRN Reason: Pain oxyCODONE ER [OxyCONTIN] 10 mg PO Q12HR #10 tab Aspirin 325 mg PO BID #60 tab No Action Gabapentin [Neurontin] 900 mg PO HS Ascorbic Acid [Vitamin C] 500 mg PO DAILY [place]-3 Fatty Acids/Fish Oil [Fish Oil 1,000 mg Softgel] 2 cap PO DAILY Calcium Carbonate/Vitamin D3 [Calcium 600-Vit D3 400 Tablet] 2 tab PO DAILY Cholecalciferol [Vitamin D3] 2,000 unit PO DAILY traMADol HCL [Ultram] 50 mg PO QID PRN PRN Reason: Pain Citalopram Hydrobromide [CeleXA] 40 mg PO DAILY metFORMIN HCL [Glucophage] 1,000 mg PO BID Glimepiride [Amaryl] 4 mg PO DAILY@1500 Niacin 1,000 mg PO DAILY Albuterol Nebulized [Ventolin Nebulized] 2.5 mg INHALATION RT-Q4H PRN PRN Reason: sob Temazepam 30 mg PO HS Sennosides-Docusate Sodium [Senokot-S] 1 tab PO DAILY PRN PRN Reason: Constipation HYDROcodone/APAP 7.5-325MG [[place] 7.5-325] 1 tab PO BID Sulfamethox-Tmp 800-160Mg [Bactrim DS 800-160 mg] 1 tab PO BID Discharge Medication List Ascorbic Acid [Vitamin C] 500 mg PO DAILY 05/27/15 [History] Calcium Carbonate/Vitamin D3 [Calcium 600-Vit D3 400 Tablet] 2 tab PO DAILY [History] Gabapentin [Neurontin] 900 mg PO HS 05/27/15 [History] [place]-3 Fatty Acids/Fish Oil [Fish Oil 1,000 mg Softgel] 2 cap PO DAILY [History] Albuterol Nebulized [Ventolin Nebulized] 2.5 mg INHALATION RT-Q4H PRN 11/02/16 [ History] Cholecalciferol [Vitamin D3] 2,000 unit PO DAILY 11/02/16 [History] Citalopram Hydrobromide [CeleXA] 40 mg PO DAILY 11/02/16 [History] Glimepiride [Amaryl] 4 mg PO DAILY@1500 11/02/16 [History] Niacin 1,000 mg PO DAILY 11/02/16 [History] metFORMIN HCL [Glucophage] 1,000 mg PO BID 11/02/16 [History] traMADol HCL [Ultram] 50 mg PO QID PRN 11/02/16 [History] Temazepam 30 mg PO HS 11/09/16 [History] HYDROcodone/APAP 7.5-325MG [[place] 7.5-325] 1 tab PO BID 04/22/17 [History] Sennosides-Docusate Sodium [Senokot-S] 1 tab PO DAILY PRN 04/22/17 [History] Sulfamethox-Tmp 800-160Mg [Bactrim DS 800-160 mg] 1 tab PO BID 04/29/17 [History ] Aspirin 325 mg PO BID #60 tab 04/30/17 [Rx] Docusate [Colace] 100 mg PO BID #60 capsule 04/30/17 [Rx] HYDROcodone/APAP 10-325MG [[place] 10-325] 1 tab PO Q4HR PRN #90 tab 04/30/17 [Rx] oxyCODONE ER [OxyCONTIN] 10 mg PO Q12HR #10 tab 04/30/17 [Rx] Follow up Appointment(s)/Referral(s): González Cid MD [STAFF PHYSICIAN] - 2 Weeks Activity/Diet/Wound Care/Special Instructions: Keep wound clean and dry Take meds as directed Follow-up with Dr. Cid in office Weight bear as tolerated Discharge Disposition: HOME WITH HOME HEALTH SERVICES
[2017-04-30] MEDS ORDERED: HYDROmorphone 2 MG TAB PO PRN ×2 (13:27→13:28)
[2017-04-30] MEDS ORDERED: HYDROmorphone 4 MG TABLET PO PRN (13:28)
[2017-04-30] MEDS ORDERED: GLIMEPIRIDE 4 MG TAB PO SCH (15:00)
--- NOTE | 2017-04-30 20:07 | P.PN ---
Subjective Progress Note Date: 04/30/17 Progress Note being dictated for Dr. Doll Interval history:Patient is a 56-year-old female with a known history of hypertension, diabetes type 2. Bll-[id number]-bjeicwfug, arthritis and asthma and previous history of smoking was admitted to the hospital for left total knee arthroplasty. Patient previously had right total knee as well as right hip replacement. Otherwise patient tolerated the procedure very well. Currently pain is controlled. No commerce of chest pain or shortness of breath. No nausea vomiting or abdominal pain. No headache or dizziness or lightheadedness. No fever no chills. 05/02/18 continues to do well. Pain med regimen adjusted with Pain better controlled. Incentive spirometer up to 2750. Good diet intake with no nausea or vomiting. Passing flatus, positive bowel movement last night. Denies lightheadedness dizziness or focal deficits. Denies chest pain, palpitations or increasing shortness of breath. Awaiting for discharge home today. Objective - Vital Signs Vital signs: Vital Signs Temp 98.2 F 04/30/17 07:00 Pulse 72 04/30/17 07:00 Resp 14 04/30/17 07:00 BP 118/70 04/30/17 07:00 Pulse Ox 95 04/30/17 07:00 Intake & Output 04/30/17 04/30/17 05/01/17 06:59 18:59 06:59 Intake Total 600 Output Total 3 Balance -3 600 Weight 90.718 kg Intake: Oral 600 Output: Stool 3 Other: Voiding Method Toilet Toilet # Voids 1 # Bowel Movements 1 - Exam PHYSICAL EXAMINATION: Patient is sitting up in the bed comfortably, no acute distress, awake alert and oriented X 3.. HEENT: Normocephalic. Neck is supple. Pupils reactive. Nostrils clear. Oral cavity is moist. Neck reveals no JVD, carotid bruits, or thyromegaly. CHEST EXAMINATION: Trachea is central. Symmetrical expansion. Lung jesus clear to auscultation and percussion. CARDIAC: Normal S1, S2 with no gallops. No murmurs ABDOMEN: Soft. Bowel sounds normal. No organomegaly. No abdominal bruits. Extremities: reveal no edema. No clubbing or cyanosis. Left knee surgical site intact. No swelling Neurologically awake, alert, oriented x3 with well-coordinated movements. No focal deficits noted Skin: No rash or skin lesions. Psychiatric: Coperative. Nonsuicidal Musculoskeletal: No joint swelling or deformity. Normal range of motion. - Labs CBC & Chem 7: 04/30/17 07:09 04/30/17 07:09 Labs: Abnormal Lab Results - Last 24 Hours (Table) 04/29/17 04/30/17 04/30/17 Range/Units 20:29 06:56 07:09 WBC 11.9 H (3.8-10.6) k/uL RBC 3.40 L (3.80-5.40) m/uL Hgb 10.5 L (11.4-16.0) gm/dL Hct 33.0 L (34.0-46.0) % Neutrophils # 7.9 H (1.3-7.7) k/uL Glucose (74-99) mg/dL POC Glucose (mg/dL) 166 H 168 H (75-99) mg/dL 04/30/17 04/30/17 Range/Units 07:09 11:28 WBC (3.8-10.6) k/uL RBC (3.80-5.40) m/uL Hgb (11.4-16.0) gm/dL Hct (34.0-46.0) % Neutrophils # (1.3-7.7) k/uL Glucose 150 H (74-99) mg/dL POC Glucose (mg/dL) 109 H (75-99) mg/dL Assessment and Plan Assessment: Status post left total knee arthroplasty Osteoarthritis of multiple joints Hypertension controlled Diabetes type 2 [id number]-rmyqaecto Asthma DVT prophylaxis Plan: Continue on current medication regime ,monitoring and symptomatic treatment. Pain management and anticoagulation as per orthopedics. Discharge planning in progress as per orthopedic surgery today. Follow-up with PCP in 1 week. Maintain aggressive pulmonary toileting with incentive spirometer at home as instructed. Further recommendations to follow. The impression and plan of care has been dictated as directed. : I performed a history and examination of this patient, discussed the same with the dictator. I agree with the dictator's note ,documented as a scribe. Any additional findings or plans will be noted.
== END 2017-04-30 14:35 | disposition home health service (06) | DRG 470 ==
LOC: 2ORMAIN 09:22 → 3SUR 13:28
PROVIDERS: ADMIT Orthopaedic Surgery Sports Medicine; ATTEND Orthopaedic Surgery Sports Medicine
PROC: 0SRD0J9 Replacement of Left Knee Joint with Synthetic Substitute, Cemented, Open Approach (ICD-10-PCS; principal; 2017-04-29 11:00)
DX: M17.12 Unilateral primary osteoarthritis, left knee (principal); E11.42 Type 2 diabetes mellitus with diabetic polyneuropathy; F41.9 Anxiety disorder, unspecified; I10 Essential (primary) hypertension; J45.909 Unspecified asthma, uncomplicated; M85.80 Other specified disorders of bone density and structure, unspecified site; E78.2 Mixed hyperlipidemia; M50.30 Other cervical disc degeneration, unspecified cervical region; F32.9 Major depressive disorder, single episode, unspecified; G47.00 Insomnia, unspecified; E55.9 Vitamin D deficiency, unspecified; G89.29 Other chronic pain; Z79.84 Long term (current) use of oral hypoglycemic drugs; Z79.899 Other long term (current) drug therapy; Z79.891 Long term (current) use of opiate analgesic; Z88.6 Allergy status to analgesic agent; Z88.1 Allergy status to other antibiotic agents; Z88.8 Allergy status to other drugs, medicaments and biological substances; Z87.891 Personal history of nicotine dependence; Z96.641 Presence of right artificial hip joint; Z96.651 Presence of right artificial knee joint; Z90.710 Acquired absence of both cervix and uterus; Z90.49 Acquired absence of other specified parts of digestive tract; Z82.49 Family history of ischemic heart disease and other diseases of the circulatory system
CPT/HCPCS: 80048; 83036; 85025; 88300

== ENCOUNTER → 2017-08-11 | Outpatient (CLI) | payer OTHER ==
--- NOTE | 2017-08-13 08:52 | MM ---
Reason for exam: screening (asymptomatic). Last mammogram was performed 1 year and 5 months ago. History: Patient is postmenopausal. Family history of premenopausal breast cancer in aunt at age 40. Benign excisional biopsy of the right breast, 1984. Took estrogen for 3 years beginning at age 45. Took progesterone for 3 years beginning at age 45. Physical Findings: A clinical breast exam by your physician is recommended on an annual basis and results should be correlated with mammographic findings. MG Screening Mammo w CAD Bilateral CC and MLO view(s) were taken. Prior study comparison: March 24, 2016, bilateral MG screening mammo w CAD. May 04, 2014, bilateral MG screening mammo w CAD. The breast tissue is heterogeneously dense. This may lower the sensitivity of mammography. There is chronic nodularity bilaterally. Asymmetry greater in the left breast is stable. No significant changes when compared with prior studies. ASSESSMENT: Benign, BI-RAD 2 RECOMMENDATION: Routine screening mammogram of both breasts in 1 year.
== END | disposition home or self-care (01) ==
LOC: RADMAMWWP 11:47
PROVIDERS: ATTEND Family Medicine
DX: Z12.31 Encounter for screening mammogram for malignant neoplasm of breast (principal)
CPT/HCPCS: 77067

== ENCOUNTER → 2018-08-23 | Outpatient (CLI) | payer OTHER ==
--- NOTE | 2018-08-24 13:51 | MM ---
Reason for exam: screening (asymptomatic). Last mammogram was performed 1 year ago. History: Patient is postmenopausal. Family history of premenopausal breast cancer in aunt at age 40. Benign excisional biopsy of the right breast, 1984. Took estrogen for 3 years beginning at age 45. Took progesterone for 3 years beginning at age 45. Physical Findings: A clinical breast exam by your physician is recommended on an annual basis and results should be correlated with mammographic findings. MG Screening Mammo w CAD Bilateral CC and MLO view(s) were taken. Prior study comparison: August 11, 2017, bilateral MG screening mammo w CAD. March 24, 2016, bilateral MG screening mammo w CAD. The breast tissue is heterogeneously dense. This may lower the sensitivity of mammography. Finding: There are typically benign calcifications in the left breast. No suspicious abnormality. No significant new finding when compared to prior studies. ASSESSMENT: Benign, BI-RAD 2 RECOMMENDATION: Routine screening mammogram of both breasts in 1 year.
== END | disposition home or self-care (01) ==
LOC: RADMAMWWP 10:51
PROVIDERS: ATTEND Family Medicine
DX: Z12.31 Encounter for screening mammogram for malignant neoplasm of breast (principal)
CPT/HCPCS: 77067

== ENCOUNTER → 2019-02-07 | Outpatient (CLI) | payer OTHER ==
--- NOTE | 2019-02-07 12:20 | XR ---
Left hip HISTORY: Chronic pain 2 views of left hip There is joint space loss, marginal spurring. Correlate for possible cam type acetabular femoral impi ngement. Alignment is maintained. Bone mineralization is reduced. Suspect vascular calcifications are present. No fracture or dislocation. Some sclerosis present at the left sacroiliac joint is noted. IMPRESSION: Osteoarthritis, correlate for possible acetabular femoral impingement. Indeterminate focu s in the left sacroiliac joint may be related to bone island, bone scan or MRI may be performed for a dditional evaluation.
== END | disposition home or self-care (01) ==
LOC: RADXRYALE 10:36
PROVIDERS: ATTEND Family Medicine
DX: M16.12 Unilateral primary osteoarthritis, left hip (principal)
CPT/HCPCS: 73502

== ENCOUNTER → 2019-04-14 | Outpatient (CLI) | payer OTHER ==
[2019-04-14 14:16] LABS: HCT 41.5 % (34.0-46.0); HGB 13.4 gm/dL (11.4-16.0); MCH 31.1 pg (25.0-35.0); MCHC 32.3 g/dL (31.0-37.0); MCV 96.3 fL (80.0-100.0); Mean Platelet Volume 8.9; Platelet Count 178 k/uL (150-450); RBC 4.31 m/uL (3.80-5.40); RDW 12.5 % (11.5-15.5); WBC 10.7 k/uL (3.8-10.6)
[2019-04-14 14:22] LABS: ALT 41 U/L (4-34); AST 55 U/L (14-36); African American GFR (CKD) >90 (>60 ml/min/1.73 sqM); Albumin 4.3 g/dL (3.5-5.0); Alkaline Phosphatase 104 U/L (38-126); Anion Gap 8 mmol/L; Blood Urea Nitrogen 14 mg/dL (7-17); Calcium 9.5 mg/dL (8.4-10.2); Carbon Dioxide 30 mmol/L (22-30); Chloride 100 mmol/L (98-107); Glucose 157 mg/dL (74-99); Non-African American GFR(CKD) >90 (>60 ml/min/1.73 sqM); Potassium 3.7 mmol/L (3.5-5.1); Sodium 138 mmol/L (137-145); Total Bilirubin 1.7 mg/dL (0.2-1.3)
[2019-04-14 14:26] LABS: Partial Thromboplastin Time 24.2 sec (22.0-30.0); Prothrombin Time 10.5 sec (9.0-12.0)
[2019-04-14 14:57] LABS: Appearance,Urine Cloudy (Clear); Bacteria,Urine Rare /hpf; Bilirubin,Urine Negative (Negative); Blood,Urine Negative (Negative); Calcium Oxalate Crystals,Urine Many /hpf; Color,Urine Yellow; Glucose,Urine (UA) 3+ (Negative); Hyaline Casts,Urine 1 /lpf (0-2); Ketones,Urine Negative (Negative); Leukocyte Esterase,Urine Large (Negative); Mucus,Urine Occasional /hpf; Nitrite,Urine Negative (Negative); PH, Urine 5.5 (5.0-8.0); Protein,Urine Trace (Negative); RBC,Urine 2 /hpf (0-5); Squamous Epithelial Cell,Urine 1 /hpf (0-4); Urobilinogen,Urine <2.0 mg/dL (<2.0); WBC,Urine 27 /hpf (0-5)
== END | disposition home or self-care (01) ==
LOC: LABPAT 13:45
PROVIDERS: ATTEND Orthopaedic Surgery
DX: Z01.812 Encounter for preprocedural laboratory examination (principal); M16.12 Unilateral primary osteoarthritis, left hip
CPT/HCPCS: 36415; 80053; 81001; 85027; 85610; 85730; 87070

== ENCOUNTER 2019-04-25 05:37 | Day surgery (SDC) | payer OTHER ==
[2019-04-21 11:47] VITALS: BMI 28.7
[~2019-04-25 05:37] MED LIST changes: -DEXAMETHASONE SOD PHOSPHATE 10 MG/ML 1 ML VIAL IV ONE; +GABAPENTIN 300 MG CAP PO ONE; -HYDROmorphone 0.5 MG/0.5 ML SYRINGE IVP PRN; -LACTATED RINGERS 1,000 ML IV SCH; -LIDOCAINE 1% 20 ML VIAL (10MG/ML) FOR IV START INTRADERMA PRN; -MIDAZOLAM 2 MG/2 ML VIAL IV PRN; -ONDANSETRON 4 MG/2 ML VIAL IVP ONE; -SCOPOLAMINE 1.5MG/72HR PATCH TRANSDERM ONE; +TRANEXAMIC ACID 1,000 MG in SODIUM CHLORIDE 0.9% 100 ML IVPB ONE; -TRANEXAMIC ACID 1,000 MG in SODIUM CHLORIDE 0.9% 50 ML IVPB ONE; -ceFAZolin IN SWFI 2 GM/20 ML SYRINGE IVP ONE
[2019-04-25] MEDS ORDERED: SCOPOLAMINE 1.5MG/72HR PATCH TRANSDERM ONE (05:49)
[2019-04-25] MEDS ORDERED: LIDOCAINE 1% 20 ML VIAL (10MG/ML) FOR IV START INTRADERMA PRN (05:49)
[2019-04-25] MEDS ORDERED: HYDROmorphone 0.5 MG/0.5 ML SYRINGE IVP PRN ×2 (05:49→09:00)
[2019-04-25] MEDS ORDERED: DEXAMETHASONE SOD PHOSPHATE 10 MG/ML 1 ML VIAL IV ONE (05:49)
[2019-04-25] MEDS ORDERED: ONDANSETRON 4 MG/2 ML VIAL IVP ONE (05:49)
[2019-04-25] MEDS ORDERED: ROPIVACAINE 246.25 MG, EPINEPHrine 0.5 MG, KETOROLAC 30 MG, cloNIDine HCL/PF 80 MCG, WA... MISCELLANE ONE ×5 (06:00)
[2019-04-25 06:19] LABS: Glucose,Whole Blood 209 mg/dL (75-99)
[2019-04-25] MEDS: LACTATED RINGERS 1,000 ML IV SCH (06:19)
[2019-04-25] MEDS ORDERED: PHENYLEPHRINE-0.9% NACL SYG 1 MG/10 ML SYRINGE ONE (06:55)
[2019-04-25] MEDS ORDERED: MIDAZOLAM 2 MG/2 ML VIAL ONE (06:55)
[2019-04-25] MEDS ORDERED: SODIUM CHLORIDE 0.9% IRRIG 1,000 ML BTL IRRIGATION ONE (06:55)
[2019-04-25] MEDS ORDERED: HEPARIN SODIUM,PORCINE 10,000 UNIT/ML 1 ML VIAL ONE (06:55)
[2019-04-25] MEDS ORDERED: TRANEXAMIC ACID 1,000 MG/10 ML VIAL ONE (06:55)
[2019-04-25] MEDS ORDERED: SODIUM CHLORIDE 0.9% 100 ML BAG ONE (06:55)
[2019-04-25] MEDS ORDERED: PROPOFOL 10 MG/ML 20 ML VIAL IV ONE (06:55)
[2019-04-25] MEDS ORDERED: LACTATED RINGERS 1,000 ML IV ONE (07:40)
--- NOTE | 2019-04-25 08:29 | P.OP ---
Date of Procedure: 04/25/19 Preoperative Diagnosis: Severe osteoarthritis left hip Postoperative Diagnosis: Severe osteoarthritis left hip Procedure(s) Performed: Left total hip arthroplasty with a direct anterior approach Implants: Caldwell and nephew Polarstem size 4 standard Caldwell [employer] Nephew R3, 3 hole acetabular shell, 52 mm [employer]dwell [employer]hew reflection 6.5 mm cancellus screw, 20 mm 2 [employer]dwell [employer]hew R3, XLPE 20 acetabular liner [employer]dwell [employer] Nephew Oxinium femoral head 36 m, +4 All components were press-fit. The articulation is Oxinium on polyethylene. Anesthesia: spinal Surgeon: Benito Colorado Technical Training Manager #1: Eddie Jean Estimated Blood Loss (ml): 200 (63 mL returned with Cell Saver) Pathology: other (Femoral head) Condition: stable Disposition: PACU Indications for Procedure: After failure of conservative treatment we discussed the surgical and nonsurgical treatment options at length. Patient wishes to proceed with a total hip arthroplasty with a direct anterior approach. Complications specific to this procedure were discussed at length, including but not limited to infection, leg length discrepancy, dislocation, and nerve injury. Patient is aware of all these complications and informed consent was obtained Operative Findings: The operative findings are consistent with severe osteoarthritis of the left hip Description of Procedure: Patient was seen and evaluated in the preoperative area, consent was reviewed, and the surgical site was marked with a skin marker. Patient was then brought to the operating room and given prophylactic antibiotics intravenously. 1 g of Tranexamic acid was also given. A spinal anesthetic was administered by the anesthesia department. The patient was then placed on the [place] table with the bony prominences well-padded. The hip area was then prepped and draped in usual sterile fashion. A universal timeout was then performed, which confirmed the patient's name, surgical site, ALLERGIES, and procedure being performed. Next the incision site was located at 1 cm distal and 1 cm lateral to the anterior superior iliac spine. The skin and subcutaneous tissues were sharply incised. Incision was carefully dissected down to the fascia overlying the tensor fascia santos muscle. This fascia was then incised in line with the incision. Next, using blunt finger dissection, the tensor fascia santos muscle was dissected off its investing fascia. The muscle was then carefully retracted laterally with a cobra retractor over the lateral neck of the femur. Next, the circumflex vessels were identified and cauterized using the AquaMantis device. The anterior hip capsule was then exposed. The capsule was then opened and an inverted T fashion. Cobra retractors were then placed intracapsularly. The proximal femur was then visu alized. The femoral neck was then osteotomized appropriate level above the lesser trochanter. Small amount of traction was placed with the [place] table. A small wedge of bone was then removed from the remaining femoral head. Next, using a corkscrew femoral head was easily removed from the acetabulum. On gross visual inspection, the femoral head had complete loss of articular cartilage in multip le periarticular osteophytes. Attention was then turned to the acetabulum. the acetabulum was exposed and any remaining labrum was excised. Sequential reaming of the acetabulum was performed using fluoroscopic guidance. When the appropriate size was reached, a trial was then placed. The position and fit of the trial was checked with fluoroscopy. The trial was then removed. Then, using fluoroscopic guidance, the final implant was impacted at 20 of anteversion and 40 of abduction, and fully seated in the acetabulum. 2 screws were then placed in the acetabulum. Again fluoroscopy was used to check position of the screws. Next, the liner was then impacted, with a 20 elevated liner located in the anterior superior quadrant. Component locking was confirmed. Attention was then directed to the femur. With the aid of the [place] table, the femur was externally rotated to approximately 130, extended, and abducted under the opposite leg. A side hook was then placed under the proximal femur, and the side hook elevator was used to elevate the proximal femur. Retractors were then placed. A capsular release was performed, as well as a release of the conjoined tendon, which afforded excellent visualization of the proximal femur. Next, a box osteotome was used to lateralize the proximal femur. A merchandise buyer was then used to locate the femoral canal. Sequential broaching was then performed with appropriate size which afforded excellent fixation in the proximal femur. A trial was then placed with appropriate head and neck, and the hip was gently reduced with the aid of the [place] table. Fluoroscopy was then used to check position of the components, as well as to ensure equal leg lengths. The hip was then gently dislocated and the trials were then removed. Final implants were then impacted and the hip was again reduced. Final fluoroscopic x-rays confirmed that the components were in anatomic position, as well as equal leg lengths. The hip was also taken through range of motion, and found to be stable. The hip was then copiously irrigated with antibiotic solution with pulsatile lavage. The hip was then irrigated with Irrisept solution. The soft tissues were then injected with a ropivacaine solution, which consisted of 246.25 mg of ropivacaine, 0.5 mg of epinephrine, 30 mg of Toradol, 80 g of clonidine, and 48.45 mL of sterile water, for a total of 100 mL of fluid injected. A second dose of 1 g of Tranexamic acid was also given. the fascia was then closed with 2-0 strata fix suture. The subcutaneous tissue was closed with 3-0 Vicryl. The subcuticular tissue was closed with 3-0 strata fix suture. The skin was then closed with Dermabond glue and a sterile silver dressing. The patient was then transferred to the recovery room in stable condition. The procurement assistant JON Schwartz was required due to the complexity of surgery, and the need for skilled geological survey field assistant for positioning, draping, exposure, retraction, and closure of the wound.
[2019-04-25] MEDS ORDERED: ONDANSETRON 4 MG/2 ML VIAL IVP PRN (09:00)
[2019-04-25] MEDS ORDERED: HYDROcodone/APAP 5-325MG 1 EACH TAB PO PRN ×2 (09:00)
[2019-04-25] MEDS ORDERED: hydrOXYzine PAMOATE 25 MG CAP PO PRN (09:00)
[2019-04-25] MEDS ORDERED: HYDROmorphone 1 MG/ML 1 ML SYRINGE IVP PRN (09:00)
[2019-04-25] MEDS ORDERED: NALOXONE 0.4 MG/ML 1 ML VIAL IV PRN (09:00)
--- NOTE | 2019-04-25 10:44 | XR ---
Left hip HISTORY: Postop Single frontal view of the left hip Patient is status post left hip arthroplasty. There is anatomic alignment. Lucency is present in the soft tissues. Bone mineralization is decreased. Lucency along the lateral bony acetabulum may be due to small local fracture. No dislocation. IMPRESSION: Postprocedural changes as described. Difficult to exclude small chip fracture. Orthopedic follow-up.
[2019-04-25 11:37] LABS: Glucose,Whole Blood 291 mg/dL (75-99)
[2019-04-25] MEDS ORDERED: INSULIN ASPART (NovoLOG) 100 UNIT/ML VIAL SQ ONE (11:41)
--- NOTE | 2019-04-25 12:29 | XR ---
Limited left hip HISTORY: Left Hip arthroplasty 3 intraoperative C-arm images document the procedure.
--- NOTE | 2019-04-25 12:31 | FL ---
Fluoroscopy HISTORY: Left hip total arthroplasty 46 seconds fluoroscopy time supplied to the referring clinician. 3 intraoperative C-arm images docum ent the procedure. See dictated report from orthopedic surgery.
[2019-04-25] MEDS: HYDROmorphone 0.5 MG/0.5 ML SYRINGE IVP PRN ×2 (13:43→19:34)
[2019-04-25] MEDS ORDERED: ALBUTEROL NEBULIZED 2.5 MG/3 ML INHALATION PRN (15:18)
[2019-04-25] MEDS ORDERED: ALBUTEROL INHALER 60 PUFF/8 GM INHALER INHALATION PRN (15:18)
[2019-04-25 16:56] LABS: Glucose,Whole Blood 322 mg/dL (75-99)
[2019-04-25] MEDS: INSULIN ASPART (NovoLOG) 100 UNIT/ML VIAL SQ SCH ×2 (17:38→20:52)
[2019-04-25 20:30] LABS: Glucose,Whole Blood 416 mg/dL (75-99)
[2019-04-25] MEDS: SULFAMETHOX-TMP 800-160MG 1 EACH TAB PO SCH (20:49)
[2019-04-25] MEDS: metFORMIN 500 MG TAB PO SCH (20:50)
[2019-04-25] MEDS: ASPIRIN 325 MG TAB PO SCH (20:50)
[2019-04-25] MEDS ORDERED: SENNOSIDES-DOCUSATE SODIUM 1 EACH TAB PO SCH (21:00)
[2019-04-25] MEDS ORDERED: INSULIN DETEMIR (LEVEMIR) 100 UNIT/ML SYR SQ SCH (21:00)
[2019-04-25] MEDS ORDERED: GABAPENTIN 300 MG CAP PO SCH (21:00)
--- NOTE | 2019-04-25 23:59 | CONS ---
CONSULTATION DATE OF SERVICE: 04/25/2019 REASON FOR CONSULTATION: Advice regarding diabetes mellitus and other medical issues, requested by Dr. Colorado. HISTORY OF PRESENT ILLNESS: This 58-year-old woman with a past medical history of multiple medical problems, including history of asthma, diabetes mellitus, DJD, being followed by Dr. Gonzalez in the outpatient setting, underwent left total hip joint arthroplasty by Dr. Colorado. The patient is being closely monitored. There is no history of any fever, rigor or chills. No history of headache, chest pain or palpitations at this time. The patient is able to ambulate with some pain. The blood sugars are slightly elevated at 209, 291 and 322. PAST MEDICAL HISTORY: History of asthma, diabetes mellitus, history of DJD, history of bilateral shoulder dislocation, history of anxiety. HOME MEDICATIONS: 1. Vitamin C 500 mg p.o. daily. 2. Ventolin 2.5 q.4 p.r.n. 3. Neurontin 900 mg at bedtime. 4. Vitamin D3 2000 daily. 5. Calcium with vitamin D twp tablets p.o. daily. 6. Niacin 1000 mg p.o. daily. 7. Hydrocodone 1 tablet q.4 p.r.n. 8. Amaryl 4 mg p.o. daily. 9. Senokot-S 1 tablet p.o. daily p.r.n. 10.[place]-3 fatty acids 2 tablets p.o. daily. 11.Glucophage 1000 mg p.o. b.i.d. 12.Bactrim DS 1 p.o. b.i.d. 13.Ventolin inhaler 1-2 puffs q.6 p.r.n. 14.Celexa 40 mg p.o. daily. ALLERGIES: FOSAMAX, ELAVIL, TETRACYCLINE, ADHESIVE TAPES. FAMILY HISTORY: History of bladder cancer in the family. SOCIAL HISTORY: History of occasional alcohol. Previous history of smoking. REVIEW OF SYSTEMS: ENT: No diminished hearing. No diminished vision. CARDIOVASCULAR SYSTEM: No angina, palpitations. RESPIRATORY SYSTEM: No cough, hemoptysis. GI: No nausea, vomiting. : No dysuria or retention. NERVOUS SYSTEM: No numbness, weakness. ALLERGY/IMMUNOLOGY: No asthma, hayfever. MUSCULOSKELETAL: As mentioned earlier. HEMATOLOGY/ONCOLOGY: No history of anemia. ENDOCRINE: Diabetes mellitus. CONSTITUTIONAL: As mentioned earlier. DERMATOLOGY: Negative. RHEUMATOLOGY: Negative. PSYCHIATRY: As mentioned earlier. PHYSICAL EXAMINATION: Patient alert and oriented x3. Pulse is 82, blood pressure 108/64, respiration 18, temperature 98.1, pulse ox 94% on 3 L. HEENT: Conjunctivae normal. Oral mucosa moist. NECK: No jugular venous distention. No carotid bruit. No lymph node enlargement. CARDIOVASCULAR SYSTEM: S1, S2 muffled. No S3. No S4. RESPIRATORY SYSTEM: Breath sounds diminished at the bases. No rhonchi. No crackles. ABDOMEN: Soft, non-tender. No mass palpable. LEGS: Status post left hip surgery. NERVOUS SYSTEM: Higher functions as mentioned earlier. Moves all 4 limbs. No focal motor or sensory deficit. LYMPHATICS: No lymph node palpable in neck, axillae or groin. SKIN: No ulcer, rash, bleeding. JOINTS: No active deforming arthropathy. LABS: Labs at this time show Accu-Cheks 209, 291, 322. The preoperative labs hematology WBC 10.7, otherwise normal. Coags are normal. Chemistry shows elevated glucose. Total bilirubin 1.7, AST, ALT minimally elevated. LDL is 110. ASSESSMENT: 1. Status post left total hip joint arthroplasty through direct approach. 2. Diabetes mellitus, type 2. 3. History of asthma. 4. Degenerative joint disease. 5. History of bilateral shoulder dislocation. 6. History of methicillin-resistant Staphylococcus aeruginosa. 7. History of cholecystectomy. 8. History of degenerative joint disease. 9. History of anxiety. 10.Remote history of nicotine dependence. RECOMMENDATIONS AND DISCUSSION: In this 58-year-old woman who presented with multiple medical issues, at this time I recommend to continue the current medications, continue symptomatic treatment. Resume the home medications. Monitor blood sugars closely. Hemoglobin A1c is not available at this time. I would recommend DVT prophylaxis, incentive spirometry. Will follow the patient closely with you. The patient may be started on a small dose of Lantus for better control and continue to monitor. Further recommendations to follow. Thank you, Dr. Colorado, for letting us participate in the care of this patient. MMODL / IJN: [id number] /
[2019-04-26 00:20] LABS: Glucose,Whole Blood 173 mg/dL (75-99)
[2019-04-26 03:46] VITALS: RESP 16
[2019-04-26] MEDS: HYDROmorphone 0.5 MG/0.5 ML SYRINGE IVP PRN (03:46)
[2019-04-26 07:00] LABS: Glucose,Whole Blood 247 mg/dL (75-99)
[2019-04-26] MEDS: LACTATED RINGERS 1,000 ML IV SCH (07:38)
[2019-04-26 07:56] LABS: Basophils % (A) 0 %; Eosinophils # (A) 0.1 k/uL (0-0.7); Eosinophils % (A) 1 %; HCT 33.6 % (34.0-46.0); HGB 10.9 gm/dL (11.4-16.0); Lymphocytes # (A) 3.5 k/uL (1.0-4.8); Lymphocytes % (A) 22 %; MCH 31.5 pg (25.0-35.0); MCHC 32.4 g/dL (31.0-37.0); MCV 97.2 fL (80.0-100.0); Mean Platelet Volume 9.3; Monocytes # (A) 0.7 k/uL (0-1.0); Monocytes % (A) 4 %; Neutrophils # (A) 11.2 k/uL (1.3-7.7); Neutrophils % (A) 71 %; Platelet Count 242 k/uL (150-450); RBC 3.46 m/uL (3.80-5.40); RDW 12.7 % (11.5-15.5); WBC 15.8 k/uL (3.8-10.6)
[2019-04-26] MEDS: INSULIN ASPART (NovoLOG) 100 UNIT/ML VIAL SQ SCH ×2 (08:05→12:55)
[2019-04-26 08:08] LABS: African American GFR (CKD) >90 (>60 ml/min/1.73 sqM); Anion Gap 8 mmol/L; Blood Urea Nitrogen 15 mg/dL (7-17); Calcium 8.8 mg/dL (8.4-10.2); Carbon Dioxide 27 mmol/L (22-30); Chloride 102 mmol/L (98-107); Glucose 211 mg/dL (74-99); Non-African American GFR(CKD) >90 (>60 ml/min/1.73 sqM); Potassium 4.1 mmol/L (3.5-5.1); Sodium 137 mmol/L (137-145)
[2019-04-26 08:17] VITALS: BP 124/70; PULSE 84; TEMP 98.4
[2019-04-26] MEDS: SULFAMETHOX-TMP 800-160MG 1 EACH TAB PO SCH (08:18)
[2019-04-26] MEDS: metFORMIN 500 MG TAB PO SCH (08:18)
[2019-04-26] MEDS: ASPIRIN 325 MG TAB PO SCH (08:20)
[2019-04-26] MEDS ORDERED: ASCORBIC ACID 500 MG TAB PO SCH (09:00)
[2019-04-26] MEDS ORDERED: CITALOPRAM HYDROBROMIDE 20 MG TAB PO SCH (09:00)
[2019-04-26] MEDS ORDERED: CHOLECALCIFEROL 1,000 UNIT TAB PO SCH (09:00)
[2019-04-26] MEDS ORDERED: NIACIN 1000 MG PO SCH (09:00)
[2019-04-26] MEDS ORDERED: NON FORMULARY DRUG (Omega-3 Fatty Acids/Fish Oil [Fish Oil 1,000 Mg Softgel] 2 CAP) PO SCH (09:00)
[2019-04-26] MEDS ORDERED: CALCIUM CARB-VIT D 500MG-200UN 1 EACH TAB PO SCH (09:00)
[2019-04-26 11:46] LABS: Glucose,Whole Blood 164 mg/dL (75-99)
--- NOTE | 2019-04-26 12:13 | P.DS ---
Providers Date of admission: 04/25/19 20:18 Expected date of discharge: 04/26/19 Attending physician: Benito Colorado Consults: 04/25/19 09:06 Consult Physician Routine Consulting Provider: Laura Hall Consult Reason/Comments: Medical management Do you want consulting provider notified?: Yes [facility] care physician[facility] Course: This is a 58-year-old female with known history of degenerative arthritis of the left hip. The patient presented to the office for evaluation by Dr. Benito Colorado. After discussion and consideration patient elects to proceed with total hip arthroplasty. The patient is seen preoperatively by Dr. Gonzalez and was cleared for surgery. Patient is admitted to [facility] on 04/25/19 for total hip arthroplasty. The procedures performed without complication or sequelae. The patient is doing well postoperatively. Labs and vital signs are stable on post- operative day #1. Patient is examined bedside this morning with Dr. Colorado. She states her pain is well-controlled and he is ambulating with a walker without issue. There are no complaints. Vital signs stable. On examination, the patient is sitting up in bed in no apparent distress. He is alert and orientated x3. On inspection of the left hip, there is a surgical dressing in place. Dressing is clean, dry, intact. There is minimal erythema. There is no drainage noted at this time. There is minimal soft tissue swelling to the hip and thigh. Patient has full foot and ankle motion without difficulty or pain. Neurovascular status to the right lower extremity is intact. Patient is discharged to home with home health services today pending medical clearance, in good condition. Patient Condition at Discharge: Fair Plan - Discharge Summary Discharge Rx Participant: Yes New Discharge Prescriptions: New Aspirin 325 mg PO BID 30 Days #60 tab Hydrocodone/Acetaminophen [[place] 5-325] 1 tab PO Q4-6H PRN #40 tab PRN Reason: Pain Sennosides-Docusate Sodium [Senokot-S] 2 tab PO HS PRN #30 tablet PRN Reason: Constipation No Action Gabapentin [Neurontin] 900 mg PO HS Ascorbic Acid [Vitamin C] 500 mg PO DAILY [place]-3 Fatty Acids/Fish Oil [Fish Oil 1,000 mg Softgel] 2 cap PO DAILY Calcium Carbonate/Vitamin D3 [Calcium 600-Vit D3 400 Tablet] 2 tab PO DAILY Cholecalciferol [Vitamin D3 (25 Mcg = 1000 Iu)] 2,000 unit PO DAILY Citalopram Hydrobromide [CeleXA] 40 mg PO DAILY metFORMIN HCL [Glucophage] 1,000 mg PO BID Glimepiride [Amaryl] 4 mg PO DAILY@1500 Niacin 1,000 mg PO DAILY Albuterol Nebulized [Ventolin Nebulized] 2.5 mg INHALATION RT-Q4H PRN PRN Reason: sob Sennosides-Docusate Sodium [Senokot-S] 1 tab PO DAILY PRN PRN Reason: Constipation Sulfamethox-Tmp 800-160Mg [Bactrim DS 800-160 mg] 1 tab PO BID HYDROcodone/APAP 10-325MG [[place] 10-325] 1 tab PO Q4HR PRN #90 tab PRN Reason: Pain Albuterol Inhaler [Ventolin Hfa Inhaler] 1 - 2 puff INHALATION RT-Q6H PRN PRN Reason: Shortness Of Breath Discharge Medication List Ascorbic Acid [Vitamin C] 500 mg PO DAILY 05/27/15 [History] Calcium Carbonate/Vitamin D3 [Calcium 600-Vit D3 400 Tablet] 2 tab PO DAILY 05/27/15 [History] Gabapentin [Neurontin] 900 mg PO HS 05/27/15 [History] [place]-3 Fatty Acids/Fish Oil [Fish Oil 1,000 mg Softgel] 2 cap PO DAILY 05/27/15 [History] Albuterol Nebulized [Ventolin Nebulized] 2.5 mg INHALATION RT-Q4H PRN 11/02/16 [History] Cholecalciferol [Vitamin D3 (25 Mcg = 1000 Iu)] 2,000 unit PO DAILY 11/02/16 [History] Citalopram Hydrobromide [CeleXA] 40 mg PO DAILY 11/02/16 [History] Glimepiride [Amaryl] 4 mg PO DAILY@1500 11/02/16 [History] Niacin 1,000 mg PO DAILY 11/02/16 [History] metFORMIN HCL [Glucophage] 1,000 mg PO BID 11/02/16 [History] Sennosides-Docusate Sodium [Senokot-S] 1 tab PO DAILY PRN 04/22/17 [History] Sulfamethox-Tmp 800-160Mg [Bactrim DS 800-160 mg] 1 tab PO BID 04/29/17 [History] HYDROcodone/APAP 10-325MG [[place] 10-325] 1 tab PO Q4HR PRN #90 tab 04/30/17 [Rx] Albuterol Inhaler [Ventolin Hfa Inhaler] 1 - 2 puff INHALATION RT-Q6H PRN 04/21/19 [History] Aspirin 325 mg PO BID 30 Days #60 tab 04/26/19 [Rx] Hydrocodone/Acetaminophen [[place] 5-325] 1 tab PO Q4-6H PRN #40 tab 04/26/19 [Rx] Sennosides-Docusate Sodium [Senokot-S] 2 tab PO HS PRN #30 tablet 04/26/19 [Rx] Follow up Appointment(s)/Referral(s): Benito Colorado DO [Doctor of Osteopathic Medicine] - 05/08/19 1:50 pm Benito Gonzalez DO [Primary Care Provider] - 05/02/19 2:20 pm Patient Instructions/Handouts: Total Hip Replacement (DC) Activity/Diet/Wound Care/Special Instructions: Weight bear as tolerated on your operative leg. Up with a walker. Leave operative dressing in place for 10 days. May shower over dressing. Take pain medications as prescribed. Take Senokot as prescribed. DVT prophylaxis for 30 days with Aspirin 325mg twice a day. Follow-up in the office in [address] Benito [place]. Call the office with any questions or concerns, Discharge Disposition: HOME WITH HOME HEALTH SERVICES
[2019-04-26] MEDS ORDERED: GLIMEPIRIDE 4 MG TAB PO SCH (15:00)
--- NOTE | 2019-04-26 20:20 | PN ---
PROGRESS NOTE DATE OF SERVICE: 04/26/2019 This 58-year-old woman with a past medical history of multiple medical problems was admitted with left total hip joint arthroplasty. The patient is followed by Dr. Gonzalez in the outpatient setting. The blood sugar is slightly uncontrolled. The patient received 15 units of Lantus yesterday, with some improvement in the blood sugars. No chest pain. No palpitations. No fever. PHYSICAL EXAMINATION: Alert and oriented x3. Pulse 64, blood pressure 124/70, respirations 16, temperature 98.4, pulse ox 96% on room air. HEENT: Conjunctivae normal. NECK: No jugular venous distention. CARDIOVASCULAR SYSTEM: S1, S2 muffled. RESPIRATORY SYSTEM: Breath sounds diminished at the bases. No rhonchi. No crackles. ABDOMEN: Soft, non-tender. No mass palpable. LEGS: Status post surgery. NERVOUS SYSTEM: No focal deficit. LABS: WBC 15.8, hemoglobin 10.9. Accu-Cheks are 247, 211 and 164. It was 416 yesterday. ASSESSMENT: 1. Status post left total hip joint arthroplasty through direct approach. 2. Diabetes mellitus, type 2, with hyperglycemia. 3. History of asthma. 4. Degenerative joint disease. 5. History of bilateral shoulder dislocation. 6. History of methicillin-resistant Staphylococcus aeruginosa. 7. History of cholecystectomy. 8. History of degenerative joint disease. 9. History of anxiety. 10.Remote history of nicotine dependence. RECOMMENDATIONS AND DISCUSSION: I recommend to continue current medications, continue with the monitoring, symptomatic treatment. I recommend that the patient takes Lantus 10 units at bedtime and keep a log Accu-Cheks before meals and at bedtime; and closely follow with Dr. Gonzalez for continued followup for further adjustments of the insulin dosage. Otherwise, rest of the recommendations per Orthopedic Surgery. MMODL / IJN: [id number] /
== END 2019-04-26 13:46 | disposition home health service (06) ==
LOC: OR 05:37 → EDSTATUS 07:00 → 4SSUR 08:50 → OR 20:17 → 4SSUR 20:18 → UNDOADMOB 20:18 → OR 04-26 13:46 → UNDODISOB 04-26 13:46
PROVIDERS: ATTEND Orthopaedic Surgery
DX: M16.12 Unilateral primary osteoarthritis, left hip (principal); I10 Essential (primary) hypertension; J45.909 Unspecified asthma, uncomplicated; F41.9 Anxiety disorder, unspecified; E11.65 Type 2 diabetes mellitus with hyperglycemia; K21.9 Gastro-esophageal reflux disease without esophagitis; E11.42 Type 2 diabetes mellitus with diabetic polyneuropathy; G89.29 Other chronic pain; G47.00 Insomnia, unspecified; E78.2 Mixed hyperlipidemia; F32.9 Major depressive disorder, single episode, unspecified; E55.9 Vitamin D deficiency, unspecified; M85.80 Other specified disorders of bone density and structure, unspecified site; Z86.14 Personal history of Methicillin resistant Staphylococcus aureus infection; Z90.49 Acquired absence of other specified parts of digestive tract; Z87.891 Personal history of nicotine dependence; Z91.048 Other nonmedicinal substance allergy status; Z88.1 Allergy status to other antibiotic agents; Z90.710 Acquired absence of both cervix and uterus; Z96.652 Presence of left artificial knee joint; Z79.4 Long term (current) use of insulin; Z79.51 Long term (current) use of inhaled steroids; Z79.899 Other long term (current) drug therapy; Z88.8 Allergy status to other drugs, medicaments and biological substances; Z97.3 Presence of spectacles and contact lenses; Z83.3 Family history of diabetes mellitus; Z80.52 Family history of malignant neoplasm of bladder
CPT/HCPCS: 97116; 97161; 86891; 81025; 86900; 86901; 80048; 85025; 86850; 88300; 73501 ×2; 27130; C1776; J2250; J1644; J1100; J0690 ×2; J2405; J2370; J2704; J1170 ×2

== ENCOUNTER → 2019-12-26 | Outpatient (CLI) | payer OTHER ==
--- NOTE | 2019-12-28 11:27 | MM ---
Reason for exam: screening (asymptomatic). Last mammogram was performed 1 year and 4 months ago. History: Patient is postmenopausal. Family history of premenopausal breast cancer in aunt at age 40. Benign excisional biopsy of the right breast, 1984. Took estrogen for 3 years beginning at age 45. Took progesterone for 3 years beginning at age 45. Physical Findings: A clinical breast exam by your physician is recommended on an annual basis and results should be correlated with mammographic findings. MG Screening Mammo w CAD Bilateral CC and MLO view(s) were taken. Prior study comparison: August 23, 2018, bilateral MG screening mammo w CAD. August 11, 2017, bilateral MG screening mammo w CAD. There are scattered fibroglandular densities. Benign appearing calcifications in the left breast. No significant changes when compared with prior studies. ASSESSMENT: Benign, BI-RAD 2 RECOMMENDATION: Routine screening mammogram of both breasts in 1 year.
== END | disposition home or self-care (01) ==
LOC: RADMAMWWP 16:37
PROVIDERS: ATTEND Family Medicine
DX: Z12.31 Encounter for screening mammogram for malignant neoplasm of breast (principal)
CPT/HCPCS: 77067

== ENCOUNTER → 2021-01-29 | Outpatient (CLI) | payer OTHER ==
--- NOTE | 2021-01-30 11:55 | MM ---
Reason for exam: screening (asymptomatic). Last mammogram was performed 1 year and 1 month ago. History: Patient is postmenopausal. Family history of premenopausal breast cancer in aunt at age 40. Benign excisional biopsy of the right breast, 1984. Took estrogen for 3 years beginning at age 45. Took progesterone for 3 years beginning at age 45. Physical Findings: A clinical breast exam by your physician is recommended on an annual basis and results should be correlated with mammographic findings. MG Screening Mammo w CAD Bilateral CC and MLO view(s) were taken. Prior study comparison: December 26, 2019, bilateral MG screening mammo w CAD. August 23, 2018, bilateral MG screening mammo w CAD. August 11, 2017, bilateral MG screening mammo w CAD. No significant changes when compared with prior studies. ASSESSMENT: Benign, BI-RAD 2 RECOMMENDATION: Routine screening mammogram of both breasts in 1 year.
== END | disposition home or self-care (01) ==
LOC: RADMAMWWP 07:33
PROVIDERS: ATTEND Family Medicine
DX: Z12.31 Encounter for screening mammogram for malignant neoplasm of breast (principal); Z80.3 Family history of malignant neoplasm of breast
CPT/HCPCS: 77067

== ENCOUNTER → 2021-01-29 | Outpatient (CLI) | payer OTHER ==
--- NOTE | 2021-01-29 08:24 | CT ---
EXAMINATION TYPE: CT sinus wo con DATE OF EXAM: 01/29/2021 COMPARISON: NONE HISTORY: Chronic javon media Lt ear w/ effusion CT DLP: 615.9 mGycm. Automated Exposure Control for Dose Reduction was Utilized. TECHNIQUE: CT scan of the sinuses is performed without contrast, axial images are obtained, coronal r eformatted images are also reviewed. FINDINGS: Asymmetric sclerosis and thickening of the left maxillary sinus jimenez. Completely opacified left sphenoid sinus that has thickened jimenez. Mild to moderate mucosal thickening throughout the eth moid sinuses bilaterally. Frontal sinuses are clear The ostiomeatal complex is patent bilaterally co kareen image 25. Visualized portion of mastoid air cells show some opacification right greater than left. Middle ear ossicles appear symmetric and felt within normal limits. Flattening of the mandibular condyles with n arrowing and subchondral cystic change left greater than right is present. The globes are intact bila terally. Visualized portion of brain parenchyma is unremarkable. IMPRESSION: Evidence of chronic paranasal sinus disease. Cannot exclude acute left sphenoid sinusitis . Correlate clinically. Increased fluid signal bilateral mastoid air cells right greater than left co uld reflect product of acute mastoiditis, correlate clinically. No middle ear involvement clearly see n.
== END | disposition home or self-care (01) ==
LOC: RADCTMAIN 06:33
PROVIDERS: ATTEND Otolaryngology Otolaryngic Allergy
DX: H65.492 Other chronic nonsuppurative otitis media, left ear (principal)
CPT/HCPCS: 70486

== ENCOUNTER 2021-01-30 10:50 | Observation (INO) | payer OTHER ==
--- NOTE | 2021-01-30 13:23 | CT ---
EXAMINATION TYPE: CT brain wo con DATE OF EXAM: 01/30/2021 COMPARISON: None INDICATION: Vision loss DLP: 1141.4 mGycm, Automated exposure control for dose reduction was used. CONTRAST: None CT of the brain is performed utilizing 3 mm thick sections through the posterior fossa and 3 mm thick sections through the remaining calvarium. Study is performed within 24 hours of arrival to the hosp [facility]. No abnormal hyperdensity is present to suggest an acute intracranial hemorrhage. No mass lesion is evident. No acute infarcts are evident. Ventricles and sulci are appropriate for the patient age. Paranasal sinuses and mastoid air cells within the [id number] are clear. IMPRESSIONS: 1. No acute intracranial process.
--- NOTE | 2021-01-30 13:35 | ED ---
General Adult HPI - General Chief complaint: Eye Problems Stated complaint: PostOp Vision Loss Time Seen by Provider: 01/30/21 11:47 Source: patient Mode of arrival: ambulatory Limitations: no limitations - History of Present Illness Initial comments: 60-year-old female with a past medical history of asthma, IDDM type II presents to the emergency room for unilateral vision loss. Patient states a week and a half ago she lost the vision in her left eye. She states she woke up and her eye was black. Patient states that she was scheduled to get the tube in her ear to relieve sinus pressure today so thought that would help it. However when she went and got the tube and told the ENT about that he was concerned and sent her to the emergency room. Patient states there is a dull ache in the left eye.Patient has no other complaints at this time including shortness of breath, chest pain, abdominal pain, nausea or vomiting, headache, or visual changes. - Related Data Home Medications Medication Instructions Recorded Confirmed Gabapentin [Neurontin] 900 mg PO HS 05/27/15 01/30/21 Citalopram Hydrobromide [CeleXA] 40 mg PO DAILY 11/02/16 01/30/21 metFORMIN HCL [Glucophage] 1,000 mg PO BID 11/02/16 01/30/21 Atorvastatin [Lipitor] 10 mg PO DAILY 01/30/21 01/30/21 Celecoxib [CeleBREX] 200 mg PO BID 01/30/21 01/30/21 DULoxetine HCL [Cymbalta] 30 mg PO DAILY 01/30/21 01/30/21 Fluticasone Nasal [place] [Flonase 2 spray EA NOSTRIL HS 01/30/21 01/30/21 Nasal [place]] Insulin Glargine [Lantus Vial] 20 - 22 units SQ HS 01/30/21 01/30/21 Insulin Regular [HumuLIN R] See Protocol SQ AC-TID PRN 01/30/21 01/30/21 Allergies Allergy/AdvReac Type Severity Reaction Status Date / Time alendronate sodium Allergy Unknown JOINT PAIN Verified 01/30/21 12:56 [From Fosamax] amitriptyline HCl Allergy Unknown HEART Verified 01/30/21 12:56 [From Elavil] PALPITATIONS tetracycline Allergy Unknown Rash/Hives, Verified 01/30/21 12:56 RED CHEEKS adhesive tape AdvReac Severe MARIE Verified 01/30/21 12:56 SKIN, SORES Review of Systems ROS Statement: Those systems with pertinent positive or pertinent negative responses have been documented in the HPI. ROS Other: All systems not noted in ROS Statement are negative. Past Medical History Past Medical History: Asthma, Diabetes Mellitus, Osteoarthritis (OA) Additional Past Medical History / Comment(s): DOM SHOULER DISLOCATION (HAS DIFFICULTY LIFTING OVER HER HEAD), TYPE 2 DIABETES. PT STATES TAKING CIPRO FOR UTI AND WILL HAVE URINE RECHECKED ON 06/04/15. History of Any Multi-Drug Resistant Organisms: MRSA Date of last positivie culture/infection: 06/25/15 MDRO Source:: URINE Past Surgical History: Cholecystectomy, Hernia Repair, Tonsillectomy Additional Past Surgical History / Comment(s): HERNIA REPAIR BABY, INTESTINAL BYPASS WITH GALL BLADDER DUE TO BLOCKAGE AT BILE DUCT(2005), RECONSTRUCTIVE SURGERY RIGHT FOOT X2, RIGHT OVARY AND TUBE REMOVED, LEFT PARTIAL OVARY REMOVED .06-06-15 TOTAL RT KNEE Past Anesthesia/Blood Transfusion Reactions: No Reported Reaction Past Psychological History: Anxiety Smoking Status: Never smoker Past Alcohol Use History: Rare Past Drug Use History: None Reported - Past Family History Father Family Medical History: Cancer Additional Family Medical History / Comment(s): BLADDER CANCER. Mother Family Medical History: Hyperlipidemia, Hypertension General Exam Limitations: no limitations General appearance: alert, in no apparent distress Head exam: Present: atraumatic Eye exam: Present: normal appearance, PERRL, EOMI, other (Afferent pupillary defect noted in the left eye). Absent: scleral icterus Expanded Eyelids: Normal Inspection: Bilateral Pupils: Regular, Round: Right, Reactive: Right Sclera/Conjunctival: Normal Inspection: Bilateral Anterior chamber: Normal Inspection: Bilateral Posterior chamber: Normal Inspection: Bilateral Visual acuity (R) = 20/: 25 Visual acuity (L) = 20/: 200 With correction: Yes IOP (R) in mmH IOP (L) in mmH IOP measured with: Tonopen ENT exam: Present: normal exam, mucous membranes moist Neck exam: Present: normal inspection, full ROM. Absent: tenderness Respiratory exam: Present: normal lung sounds bilaterally. Absent: respiratory distress, wheezes Cardiovascular Exam: Present: regular rate, normal rhythm, normal heart sounds GI/Abdominal exam: Present: soft, normal bowel sounds. Absent: distended, tenderness Course Vital Signs 01/30/21 01/30/21 11:00 15:04 Temperature 97.2 F L Pulse Rate 70 71 Respiratory 18 18 Rate Blood Pressure 151/84 148/89 O2 Sat by Pulse 98 96 Oximetry Medical Decision Making - Medical Decision Making Patient was also seen by Dr. Braxton, we will be getting a CT without contrast. Case was also discussed with Dr. Mcdonald. He recommends ESR and CRP to rule out temporal arteritis and requests a call back. Laboratory evaluation unremarkable. ESR 21, CRP 0.8. At this time case was again discussed with Dr. Mcdonald. He feels this is more of a vascular issue and patient probably ruptured a plaque. We will admit patient to see neurology. Dr. Mcdonald will see patient outpatient after discharge. - Lab Data Result diagrams: 01/30/21 13:30 01/30/21 13:30 Lab Results 01/30/21 01/30/21 Range/Units 13:30 13:30 WBC 9.9 (3.8-10.6) k/uL RBC 4.36 (3.80-5.40) m/uL Hgb 13.7 (11.4-16.0) gm/dL Hct 41.9 (34.0-46.0) % MCV 96.1 (80.0-100.0) fL MCH 31.4 (25.0-35.0) pg MCHC 32.6 (31.0-37.0) g/dL RDW 12.7 (11.5-15.5) % Plt Count 273 (150-450) k/uL MPV 8.9 Neutrophils % 49 % Lymphocytes % 40 % Monocytes % 4 % Eosinophils % 4 % Basophils % 1 % Neutrophils # 4.9 (1.3-7.7) k/uL Lymphocytes # 4.0 (1.0-4.8) k/uL Monocytes # 0.4 (0-1.0) k/uL Eosinophils # 0.4 (0-0.7) k/uL Basophils # 0.1 (0-0.2) k/uL ESR 21 H (0-20) mm/hr Sodium 142 (137-145) mmol/L Potassium 3.8 (3.5-5.1) mmol/L Chloride 104 (98-107) mmol/L Carbon Dioxide 31 H (22-30) mmol/L Anion Gap 7 mmol/L BUN 9 (7-17) mg/dL Creatinine 0.56 (0.52-1.04) mg/dL Est GFR (CKD-EPI)AfAm >90 (>60 ml/min/1.73 sqM) Est GFR (CKD-EPI)NonAf >90 (>60 ml/min/1.73 sqM) Glucose 95 (74-99) mg/dL Calcium 9.9 (8.4-10.2) mg/dL C-Reactive Protein 0.8 (<1.0) mg/dL Disposition Clinical Impression: Monocular vision loss Disposition: ADMITTED IP TO THIS HOSP Is patient prescribed a controlled substance at d/c from ED?: No Referrals: Benito Gonzalez DO [Primary Care Provider] - 1-2 days Time of Disposition: 15:54
[2021-01-30 13:40] LABS: Basophils # (A) 0.1 k/uL (0-0.2); Basophils % (A) 1 %; Eosinophils # (A) 0.4 k/uL (0-0.7); Eosinophils % (A) 4 %; HCT 41.9 % (34.0-46.0); HGB 13.7 gm/dL (11.4-16.0); Lymphocytes % (A) 40 %; MCH 31.4 pg (25.0-35.0); MCHC 32.6 g/dL (31.0-37.0); MCV 96.1 fL (80.0-100.0); Mean Platelet Volume 8.9; Monocytes # (A) 0.4 k/uL (0-1.0); Monocytes % (A) 4 %; Neutrophils # (A) 4.9 k/uL (1.3-7.7); Neutrophils % (A) 49 %; Platelet Count 273 k/uL (150-450); RBC 4.36 m/uL (3.80-5.40); RDW 12.7 % (11.5-15.5); WBC 9.9 k/uL (3.8-10.6)
[2021-01-30 13:50] LABS: African American GFR (CKD) >90 (>60 ml/min/1.73 sqM); Anion Gap 7 mmol/L; Blood Urea Nitrogen 9 mg/dL (7-17); Calcium 9.9 mg/dL (8.4-10.2); Carbon Dioxide 31 mmol/L (22-30); Chloride 104 mmol/L (98-107); Glucose 95 mg/dL (74-99); Non-African American GFR(CKD) >90 (>60 ml/min/1.73 sqM); Potassium 3.8 mmol/L (3.5-5.1); Sodium 142 mmol/L (137-145)
[2021-01-30 14:07] LABS: C Reactive Protein 0.8 mg/dL (<1.0)
[2021-01-30 15:04] LABS: Erythrocyte Sedimentation Rate 21 mm/hr (0-20)
[2021-01-30] MEDS ORDERED: NALOXONE 0.4 MG/ML 1 ML VIAL IV PRN (15:55)
[2021-01-30] MEDS ORDERED: AMOXICILLIN 500 MG CAP PO STA (16:01)
[2021-01-30] MEDS: SODIUM CHLORIDE 0.9% 1,000 ML IV SCH (16:26)
[2021-01-30 17:27] LABS: Glucose,Whole Blood 149 mg/dL (75-99)
--- NOTE | 2021-01-30 20:00 | XR ---
EXAMINATION TYPE: XR chest 1V portable DATE OF EXAM: 01/30/2021 CLINICAL HISTORY: chf. TECHNIQUE: Portable frontal view of the chest. COMPARISON: None FINDINGS: Cardiomegaly. Pulmonary vasculature is normal. There is no focal air space opacity. No ple ural effusion. No pneumothorax seen. No acute displaced osseous fracture. IMPRESSION: Cardiomegaly. No overt failure.
[2021-01-30] MEDS: INSULIN ASPART (NovoLOG) 100 UNIT/ML VIAL SQ SCH ×2 (20:09→20:37)
[2021-01-30 20:29] LABS: Glucose,Whole Blood 144 mg/dL (75-99)
--- NOTE | 2021-01-30 20:57 | HP ---
HISTORY AND PHYSICAL DATE OF SERVICE: 01/30/2021. CHIEF COMPLAINTS: Monocular visual loss on the right side. HISTORY OF PRESENT ILLNESS: This 60-year-old woman with a past medical history of multiple medical problems, including asthma, history of diabetes mellitus, DJD, history of bilateral shoulder dislocation, history of MRSA, history of cholecystectomy, being followed by primary physician Dr. Gonzalez in the outpatient setting, also had significant sinus issues which the patient has been dealing with for several days. The patient was scheduled to have surgery today. tympanic tube placement by ENT today. However, the patient was having visual problems for the last one week, amounting to complete visual loss even without light, and the patient came to [facility] and was admitted for further evaluation and treatment. There is no history of any fever, rigors or chills. No history of headache, loss of consciousness, seizures. Patient is also complaining of some pain in the left eye on movement. The patient is admitted for further evaluation and treatment. Neurology and ophthalmology evaluations are being sought at this time. PAST MEDICAL HISTORY: History of asthma, diabetes mellitus, type 2, DJD, history of shoulder dislocations, cholecystectomy. HOME MEDICATIONS: Metformin, Humulin N, Neurontin, fluticasone, Cymbalta, Celexa, Celebrex Lipitor. Doses are reviewed. ALLERGIES: FOSAMAX, ELAVIL, ADHESIVE TAPES. FAMILY HISTORY: History of bladder cancer. SOCIAL HISTORY: Previous history of smoking. No history of alcohol intake. REVIEW OF SYSTEMS: ENT: As mentioned earlier. CARDIOVASCULAR SYSTEM: No angina, palpitations. RESPIRATORY SYSTEM: As mentioned earlier. GI: As mentioned earlier. : No dysuria. NERVOUS SYSTEM: As mentioned earlier. ALLERGY/IMMUNOLOGY: As mentioned earlier. HEMATOLOGY/ONCOLOGY: No history of anemia. ENDOCRINE: As mentioned earlier. CONSTITUTIONAL: As mentioned earlier. DERMATOLOGY: Negative. RHEUMATOLOGY: Negative. PSYCHIATRY: As mentioned earlier. PHYSICAL EXAMINATION: Patient alert and oriented x3. Pulse 71, blood pressure 158/83, respiration 18, temperature 98.2, pulse ox 96% on room air. HEENT: Conjunctivae normal. Oral mucosa moist. NECK: No jugular venous distention. CARDIOVASCULAR: S1, S2 muffled. RESPIRATION: Breath sounds diminished at the bases. No rhonchi. No crackles. ABDOMEN: Soft, nontender. No mass palpable. LEGS: No edema. No swelling. NERVOUS SYSTEM: Higher functions as mentioned earlier. Cranial nerves: Complete visual palsy on the left side. Pupillary reflex is also impaired. Eye movements in all directions. Normal power. Normal reflexes. No gait dysfunction. No signs of cerebellar dysfunction. SKIN: No ulcer, rash, bleeding. JOINTS: No active deforming arthropathy. LABS: CBC within normal limits. ESR is 21. CRP is only 0.8 and glucose is 149. ASSESSMENT: 1. Monocular visual loss on the left eye, for evaluation. Rule out primary eye pathology or neuritis or glaucoma. 2. Elevated ESR. 3. History of sinusitis. 4. History of recent left tympanostomy tube placement. 5. History of asthma. 6. Diabetes mellitus. 7. History of degenerative joint disease. 8. History of bilateral shoulder dislocations. 9. History of MRSA. 10.History of cholecystectomy. 11.History of hernia surgery. 12.History of anxiety. 13.History of nicotine dependence. 14.FULL CODE. RECOMMENDATIONS AND DISCUSSION: In this 60-year-old woman who presented with multiple complex medical issues, we will monitor the patient closely, continue the current medications, continue with symptomatic treatment. Otherwise at this time I recommend continuing with neuro checks, neurology evaluation. I would also recommend an ophthalmology evaluation as well on an emergent basis. Otherwise, CT scan showed no acute abnormality. The prognosis is guarded because of multiple complex medical issues. We will monitor the blood sugars closely. A copy of this dictation is being forwarded to Dr. Gonzalez, who is the primary physician. The patient will need ENT evaluation as well. MMRAULL / MELITONN: [id number] / JYOTI
[2021-01-30] MEDS ORDERED: INSULIN DETEMIR (LEVEMIR) 100 UNIT/ML SYR SQ SCH (21:00)
[2021-01-30] MEDS ORDERED: FLUTICASONE 50MCG/SPRAY NASAL 16GM EA NOSTRIL SCH (21:00)
[2021-01-30] MEDS ORDERED: MELOXICAM 7.5 MG TAB PO SCH (21:00)
[2021-01-30] MEDS ORDERED: GABAPENTIN 300 MG CAP PO SCH (21:00)
[2021-01-30 22:34] LABS: Appearance,Urine Clear (Clear); Bilirubin,Urine Negative (Negative); Blood,Urine Negative (Negative); Color,Urine Light Yellow; Glucose,Urine (UA) Negative (Negative); Ketones,Urine Negative (Negative); Leukocyte Esterase,Urine Negative (Negative); Nitrite,Urine Negative (Negative); Protein,Urine Negative (Negative); Specific Gravity,Urine 1.011 (1.001-1.035); Urobilinogen,Urine <2.0 mg/dL (<2.0)
[2021-01-30 22:45] LABS: Amphetamine Screen,Urine Not Detected (NotDetected); Barbiturate Screen,Urine Not Detected (NotDetected); Benzodiazepines Screen,Urine Not Detected (NotDetected); Cocaine Screen,Urine Not Detected (NotDetected); Methadone Screen, Urine Not Detected (NotDetected); Opiate Screen,Urine Not Detected (NotDetected); Oxycodone Screen, Urine Not Detected (NotDetected); Phencyclidine Screen,Urine Not Detected (NotDetected); Tricyclic Antidepressant,Urine Not Detected (NotDetected); Urn Cannabinoid Scrn Not Detected (NotDetected)
[2021-01-31 02:15] VITALS: RESP 15
[2021-01-31] MEDS: SODIUM CHLORIDE 0.9% 1,000 ML IV SCH (04:22)
[2021-01-31] MEDS: INSULIN ASPART (NovoLOG) 100 UNIT/ML VIAL SQ SCH ×2 (07:33→13:45)
[2021-01-31 07:34] LABS: Glucose,Whole Blood 109 mg/dL (75-99)
[2021-01-31 08:14] VITALS: BP 136/81; PULSE 65; TEMP 97.4
[2021-01-31] MEDS ORDERED: DULoxetine HCL 30 MG CAPSULE.DR PO SCH (09:00)
[2021-01-31] MEDS ORDERED: ATORVASTATIN 10 MG TAB PO SCH (09:00)
[2021-01-31] MEDS ORDERED: CITALOPRAM HYDROBROMIDE 20 MG TAB PO SCH (09:00)
[2021-01-31 09:13] LABS: Basophils # (A) 0.04 X 10*3/uL (0.00-0.10); Basophils % (A) 0.5 %; Eosinophils % (A) 6.4 %; HCT 38.3 % (37.2-46.3); HGB 12.3 g/dL (12.0-15.0); Lymphocytes # (A) 2.77 X 10*3/uL (0.90-5.00); Lymphocytes % (A) 35.2 %; MCH 30.9 pg (27.0-32.0); MCHC 32.1 g/dL (32.0-37.0); MCV 96.2 fL (80.0-97.0); Mean Platelet Volume 11.3 fL (9.5-12.2); Monocytes # (A) 0.58 X 10*3/uL (0.20-1.00); Monocytes % (A) 7.4 %; Neutrophils # (A) 3.94 X 10*3/uL (1.80-7.70); Neutrophils % (A) 50.1 %; Platelet Count 252 X 10*3/uL (140-440); RBC 3.98 X 10*6/uL (4.10-5.20); WBC 7.86 X 10*3/uL (4.50-10.00)
[2021-01-31] MEDS ORDERED: ASPIRIN 81 MG PO SCH (11:30)
[2021-01-31] MEDS ORDERED: OFLOXACIN 0.3% OPHTH DROPS LEFT EAR SCH (12:00)
[2021-01-31] MEDS ORDERED: OFLOXACIN 0.3% OPHTH DROPS 5 ML BOTTLE LEFT EAR SCH (12:15)
[2021-01-31 12:44] LABS: Glucose,Whole Blood 158 mg/dL (75-99)
[2021-01-31 12:54] LABS: ALT 30 U/L (8-44); AST 28 U/L (13-35); African American GFR (CKD) 98.8 (60.0-200.0); Albumin 3.9 g/dL (3.8-4.9); Albumin/Globulin Ratio 1.93 (1.60-3.17); Alkaline Phosphatase 103 U/L (41-126); Blood Urea Nitrogen 11.4 mg/dL (9.0-27.0); Calcium 8.7 mg/dL (8.7-10.3); Carbon Dioxide 26.7 mmol/L (21.6-31.8); Chloride 107 mmol/L (96-109); Chol/HDL Ratio 3.53 Ratio; Glucose 125 mg/dL (70-110); LDL Cholesterol,Calculated 59.4 mg/dL (0.0-131.0); Non-African American GFR(CKD) 85.3 (60.0-200.0); Sodium 144 mmol/L (135-145)
--- NOTE | 2021-01-31 13:55 | US ---
EXAMINATION TYPE: US carotid duplex BILAT DATE OF EXAM: 01/31/2021 COMPARISON: NONE CLINICAL HISTORY: Left visual loss, ?carotid stenosis. EXAM MEASUREMENTS: RIGHT: Peak Systolic Velocity (PSV) cm/sec ----- Right CCA: 68.9 ----- Right ICA: 73.6 ----- Right ECA: 78.4 ICA/CCA ratio: 1.1 RIGHT: End Diastole cm/sec ----- Right CCA: 22.0 ----- Right ICA: 26.1 ----- Right ECA: 12.5 LEFT: Peak Systolic Velocity (PSV) cm/sec ----- Left CCA: 67.7 ----- Left ICA: 65.6 ----- Left ECA: 80.3 ICA/CCA ratio: 1.0 LEFT: End Diastole cm/sec ----- Left CCA: 19.9 ----- Left ICA: 26.8 ----- Left ECA: 17.3 VERTEBRALS (direction of flow): Right Vertebral: Antegrade Left Vertebral: Antegrade Rhythm: Normal Grayscale, color Doppler, spectral Doppler imaging performed of the carotid arteries. Waveform analys is does not show significant stenosis of the internal carotid arteries. No significant stenosis seen IMPRESSION: No hemodynamic significant stenosis of the proximal internal carotid arteries by Doppler criteria, indirect measurement of carotid stenosis Criteria for Assigning % of Stenosis / Diameter reduction (Estimation based on the indirect measurements of the internal carotid artery velocities (ICA PSV). 1. Normal (no stenosis)=ICA PSV < 125 cm/s: ratio < 2.0: ICA EDV<40 cm/s. 2. Less than 50% stenosis=ICA PSV < 125 cm/s: ratio < 2.0: ICA EDV<40 cm/s. 3. 50 to 69% stenosis=ICA PSV of 125 to 230 cm/s: ration 2.0 ? 4.0: ICA EDV 40-100 cm/s. 4. Greater than 70% stenosis to near occlusion= ICA PSV > 230 cm/s: ratio > 4.0: ICA EDV > 100 cm/s. 5. Near occlusion= ICA PSV velocities may be low or undetectable: variable ratio and ICA EDV. 6. Total occlusion=unable to detect flow.
--- NOTE | 2021-01-31 14:55 | P.DS ---
Providers Date of admission: 01/30/21 16:16 Expected date of discharge: 01/31/21 Attending physician: Lexx Gutierrez MD Consults: 01/30/21 15:55 Consult Physician Routine Consulting Provider: Leann Roblero Consult Reason/Comments: monocular vision loss Do you want consulting provider notified?: Yes 01/31/21 08:21 Consult Physician Routine Consulting Provider: Juanito Olivia Consult Reason/Comments: monocular vision loss Do you want consulting provider notified?: Yes Primary care physician: Benito Lemon Hospital Course: Final Diagnosis Monocular visual loss of the left eye, for evaluation, rule out primary eye pathology or neuritis or glaucoma Elevated ESR History of sinusitis history of recent left tympanostomy tube placement History of asthma diabetes mellitus history of degenerative joint disease History of bilateral shoulder dislocations History of MRSA history of cholecystectomy history of hernia surgery history of anxiety history of nicotine dependence Full code Discharge disposition Patient is being discharged in a stable condition with guarded prognosis to home. Patient will follow-up with Dr. Lemon in the outpatient setting upon discharge. Patient is to follow up with neurology Dr. Simmons along with Dr. Olivia ophthalmology today at 4 PM. Patient provided prescription for outpatient MRA and MRI. Total time taken is greater than 35 minutes. Hospital course This is a 60-year-old female who was recently admitted with visual disturbances over the last week that it progressively gotten worse and amounted to complete visual loss of the left eye. She was evaluated the Dr. Olivia today and recommending coming to his office this afternoon at 4 PM as he does not have the necessary equipment to perform a thorough exam. Neurology following as well recommending outpatient follow-up with neurologist and outpatient MRI and MRA and clear from his standpoint follow-up outpatient and strongly recommends the patient go to the net developer with [facility] appointment today. at the bedside and they are going directly from here to Dr. Olivia's office. Patient instructed to follow-up with primary care provider as well and outpatient with ENT. Discussed with the patient and at the bedside if having any further symptoms or worsening symptoms patient is to report directly to the emergency department or call 911. verbalized understanding. Currently no reports of chest pain, shortness of breath, or palpitations. Patient is afebrile. No reports of nausea or vomiting and patient is tolerating diet. Patient will be discharged home today. Guarded prognosis. On exam vital signs are stable. Cardio S1, S2 are muffled. Respiratory system shows diminished breath sounds at the bases with no wheezing or rhonchi noted. Abdomen is soft and nontender. Nervous system shows no focal deficits. Please refer to medication reconciliation sheet for a list of medications. Patient Condition at Discharge: Fair Plan - Discharge Summary New Discharge Prescriptions: New Aspirin 81 mg PO DAILY #30 tab Continue Gabapentin [Neurontin] 900 mg PO HS Citalopram Hydrobromide [CeleXA] 40 mg PO DAILY metFORMIN HCL [Glucophage] 1,000 mg PO BID Insulin Glargine [Lantus Vial] 20 - 22 units SQ HS Atorvastatin [Lipitor] 10 mg PO DAILY DULoxetine HCL [Cymbalta] 30 mg PO DAILY Fluticasone Nasal [place] [Flonase Nasal [place]] 2 spray EA NOSTRIL HS Insulin Regular [HumuLIN R] See Protocol SQ AC-TID PRN PRN Reason: Blood Sugar - High Celecoxib [CeleBREX] 200 mg PO BID Discharge Medication List Gabapentin [Neurontin] 900 mg PO HS 05/27/15 [History] Citalopram Hydrobromide [CeleXA] 40 mg PO DAILY 11/02/16 [History] metFORMIN HCL [Glucophage] 1,000 mg PO BID 11/02/16 [History] Atorvastatin [Lipitor] 10 mg PO DAILY 01/30/21 [History] Celecoxib [CeleBREX] 200 mg PO BID 01/30/21 [History] DULoxetine HCL [Cymbalta] 30 mg PO DAILY 01/30/21 [History] Fluticasone Nasal [place] [Flonase Nasal [place]] 2 spray EA NOSTRIL HS 01/30/21 [History] Insulin Glargine [Lantus Vial] 20 - 22 units SQ HS 01/30/21 [History] Insulin Regular [HumuLIN R] See Protocol SQ AC-TID PRN 01/30/21 [History] Aspirin 81 mg PO DAILY #30 tab 01/31/21 [Rx] Follow up Appointment(s)/Referral(s): Benito Lemon DO [Primary Care Provider] - 1-2 days Juanito Olivia MD [STAFF PHYSICIAN] - 1-2 Days (appointment at 4 PM) Rain Simmons MD [Medical Doctor] - 1-2 Days Activity/Diet/Wound Care/Special Instructions: She is to go to Dr. Olivia's office directly for 4:00 appointment Patient is to follow-up with primary care provider on discharge Follow-up with neurology outpatient in the next 2-3 days Outpatient MRI and MRA If Having any worsening symptoms please reports your nearest emergency department or call 911 Discharge Disposition: HOME SELF-CARE
--- NOTE | 2021-01-31 15:45 | P.CNNES ---
History of Present Illness Consult date: 01/31/21 Requesting physician: Tricia Garcia Reason for Consult: Monocular vision loss History of Present Illness: Patient is a 60-year-old female with history of diabetes came to the hospital yesterday at 10:50 AM for almost 10 day history of complete vision loss in the left eye. Patient states that she has been seeing ENT specialist for pressure in the sinuses, who has recommended tympanostomy tube in the left ear. Patient states that about 10 days ago one morning she woke up with extreme foggy vision, dark, could see shadows, some "specks of light" in the left eye. She felt it was sinus related, and hopefully will improve when she gets the ear tubes put in. By the next day, she has complete vision loss in the left eye. It is completely dark. Patient underwent placement of tympanostomy tube left eardrum yesterday, and the ENT specialist referred her to ER for evaluation of left vision loss. Patient states that she has been noticing aching in the left eyeball with a pressure and throbbing. She denies any transient visual obscurations or disturbance the day prior to her vision loss. She denies any issues with the right ear. Patient denies any other focal neurological symptoms whatsoever, like slurred speech, facial droop, focal numbness tingling or balance issues. Vital signs on arrival blood pressure 151/84, pulse rate 70, temperature 97.2. Patient's maximum blood pressure is 176/99. Patient's blood test shows normal CBC, d-dimer, CRP 0.8 UA negative, urine drug screen negative. ESR is rosette rderline 21. Chem-7 is normal. Myers virus PCR negative. Patient's last hemoglobin A1c 6.0 on 04/30/2017. Patient's last lipid panel from 09/20/2019 shows cholesterol 113, LDL 59, HDL [address] head showed no acute process. Paranasal sinuses are clear. Chest x-ray showed cardiomegaly, no heart failure. EKG shows normal sinus rhythm. Left axis deviation. Prolonged QT. Home medications include gabapentin 900 mg at bedtime, Celexa 40 mg, metformin 1000 mg twice a day, insulin, Lipitor 10 mg, Cymbalta 30 mg, Flonase, insulin and Celebrex 200 mg twice a day. Patient does not take any antiplatelet medication at home. Patient has history of diabetes for last 7-10 years. Hypertension diagnosed in the last 6 months. She has smoked about half to one third pack per day from age 21 until age 45 and she quit. Denies hyperlipidemia. Review of Systems As above in detail. All other review of systems unremarkable. Past Medical History Past Medical History: Asthma, Diabetes Mellitus, Osteoarthritis (OA) Additional Past Medical History / Comment(s): DOM SHOULER DISLOCATION (HAS DIFFICULTY LIFTING OVER HER HEAD), TYPE 2 DIABETES. . History of Any Multi-Drug Resistant Organisms: MRSA Date of last positivie culture/infection: 06/25/15 MDRO Source:: URINE Past Surgical History: Cholecystectomy, Hernia Repair, Tonsillectomy Additional Past Surgical History / Comment(s): HERNIA REPAIR BABY, INTESTINAL BYPASS WITH GALL BLADDER DUE TO BLOCKAGE AT BILE DUCT(2005), RECONSTRUCTIVE SURGERY RIGHT FOOT X2, RIGHT OVARY AND TUBE REMOVED, LEFT PARTIAL OVARY REMOVED .06-06-15 TOTAL RT KNEE Past Anesthesia/Blood Transfusion Reactions: No Reported Reaction Past Psychological History: Anxiety Smoking Status: Former smoker Past Alcohol Use History: Rare Additional Past Alcohol Use History / Comment(s): QUIT SMOKING 4-5 YEARS AGO. SMOKED OVER 10 YEARS. SMOKED 1/2 PPD OR LESS. Past Drug Use History: None Reported - Past Family History Father Family Medical History: Cancer Additional Family Medical History / Comment(s): BLADDER CANCER. Mother Family Medical History: Hyperlipidemia, Hypertension Medications and Allergies Home Medications Medication Instructions Recorded Confirmed Type Gabapentin [Neurontin] 900 mg PO HS 05/27/15 01/31/21 History Citalopram Hydrobromide [CeleXA] 40 mg PO DAILY 11/02/16 01/31/21 History metFORMIN HCL [Glucophage] 1,000 mg PO BID 11/02/16 01/31/21 History Atorvastatin [Lipitor] 10 mg PO DAILY 01/30/21 01/31/21 History Celecoxib [CeleBREX] 200 mg PO BID 01/30/21 01/31/21 History DULoxetine HCL [Cymbalta] 30 mg PO DAILY 01/30/21 01/31/21 History Fluticasone Nasal [place] [Flonase 2 spray EA NOSTRIL HS 01/30/21 01/31/21 History Nasal [place]] Insulin Glargine [Lantus Vial] 20 - 22 units SQ HS 01/30/21 01/31/21 History Insulin Regular [HumuLIN R] See Protocol SQ AC-TID PRN 01/30/21 01/31/21 History Aspirin 81 mg PO DAILY #30 tab 01/31/21 01/31/21 Rx Allergies Allergy/AdvReac Type Severity Reaction Status Date / Time alendronate sodium Allergy Unknown JOINT PAIN Verified 01/31/21 17:54 [From Fosamax] amitriptyline HCl Allergy Unknown HEART Verified 01/31/21 17:54 [From Elavil] PALPITATIONS tetracycline Allergy Unknown Rash/Hives, Verified 01/31/21 17:54 RED CHEEKS adhesive tape AdvReac Severe MARIE Verified 01/31/21 17:54 SKIN, SORES Physical Examination - Vital Signs Vital Signs: Vital Signs Temp Pulse Pulse Resp BP BP BP 01/31/21 07:25 97.4 F L 65 15 136/81 01/31/21 02:00 98.9 F 79 15 147/85 01/30/21 20:35 154/98 01/30/21 20:00 98.9 F 71 18 176/99 01/30/21 18:55 98.2 F 71 18 158/83 01/30/21 15:04 71 18 148/89 01/30/21 11:00 97.2 F L 70 18 151/84 Pulse Ox 01/31/21 07:25 97 01/31/21 02:00 98 01/30/21 20:35 01/30/21 20:00 97 01/30/21 18:55 96 01/30/21 15:04 96 01/30/21 11:00 98 Intake and Output 01/30/21 01/31/21 01/31/21 22:59 06:59 14:59 Output Total 0 Balance 0 Output: Emesis 0 Other: # Voids 1 Weight 90.718 kg Patient is a middle aged female, very pleasant, in no acute distress. Patient is alert awake oriented to time place and person. Speech and language functions are normal. Attention, concentration and fund of knowledge is adequate. On cranial examination, pupils are round and reacting to light, she has a very prominent left afferent pupillary defect. Her visual jesus are full on confrontation in the right eye, with no vision at all in the left eye, her extraocular muscles are intact with no nystagmus. Funduscopic examination was performed. There appears to be possible disc edema on the left side. No obvio us hemorrhage noted. Await final ophthalmology eval. Face is symmetric, tongue protrudes to the midline. Palatal elevation and sensation normal, hearing and shoulder shrug normal, facial sensation normal. Shoulder shrug normal. On muscle strength testing, there is no pronator drift and the strength is normal in arms and legs distally and proximally. Deep tendon reflexes are symmetric, 1+ and plantars downgoing bilaterally. Sensory to touch is equal with no neglect. Cerebellar function showed no ataxia for pabxli-nf-wold testing. No dysdiadochokinesia. Tone and bulk of muscles normal. Gait normal. On general examination, there is no carotid bruit or murmur, S1-S2 audible. Abdomen is soft nontender. Chest is clear. Peripheral pulses are present. No edema. Results - Laboratory Findings CBC and BMP: 01/31/21 06:13 01/31/21 06:13 Abnormal Lab Findings: Abnormal Labs 01/30/21 01/30/21 01/30/21 13:30 13:30 17:25 RBC Eosinophils # ESR 21 H Carbon Dioxide 31 H POC Glucose (mg/dL) 149 H 01/30/21 01/31/21 01/31/21 20:28 06:13 07:32 RBC 3.98 L Eosinophils # 0.50 H ESR Carbon Dioxide POC Glucose (mg/dL) 144 H 109 H Assessment and Plan Assessment: * Unilateral rapid onset complete vision loss, left eye 10 days ago. Rule out ischemic optic neuropathy. Temporal arteritis less likely with normal ESR and CRP. * Hypertension * Diabetes * X tobacco use Plan: * MRI of the brain with and without contrast * Carotid Doppler * 2-D echo * Hemoglobin A1c, fasting lipid panel * Telemetry monitoring * Start aspirin 81 mg daily * Await ophthalmology consultation. * We will follow. Addendum: Received call from Miss Elderssmartita ORTEZ, the patient has an appointment with sap basis administrator at 4 PM today. The sap basis administrator wants to see the patient in the office rather than in the hospital for better ophthalmologic evaluation. Patient will be discharged on aspirin, and have MRI of the brain performed as an outpatient. Carotid Doppler was performed, which was normal. No stenosis. Antegrade flow in both vertebral arteries. Echo and blood tests have been taken, but results pending. We will follow. Would recommend patient to return to the hospital if she gets any new neurological symptoms.
--- NOTE | 2021-01-31 17:00 | ECHOF ---
Referral Reason:CVA MEASUREMENTS -------- HEIGHT: 177.8 cm WEIGHT: 90.7 kg BP: 136/81 RVIDd: 3.0 cm (< 3.3) IVSd: 1.2 cm (0.6 - 1.1) LVIDd: 4.8 cm (3.9 - 5.3) LVPWd: 1.2 cm (0.6 - 1.1) IVSs: 2.0 cm LVIDs: 2.7 cm LVPWs: 1.6 cm LA Diam: 3.5 cm (2.7 - 3.8) LAESV Index (A-L): 27.32 ml/m Ao Diam: 3.5 cm (2.0 - 3.7) AV Cusp: 2.5 cm (1.5 - 2.6) MV EXCURSION: 20.130 mm (> 18.000) MV EF SLOPE: 56 mm/s (70 - 150) EPSS: 0.3 cm MV E Rudy: 0.67 m/s MV DecT: 257 ms MV A Rudy: 0.84 m/s MV E/A Ratio: 0.80 FINDINGS -------- Sinus rhythm. This was a technically adequate study. The left ventricular size is normal. There is borderline concentric left ventricular hypertrophy. Overall left ventricular systolic function is normal with, an EF between 60 - 65 %. The right ventricle is normal in size. Normal LA size by volume 22+/-6 ml/m2. The right atrium is normal in size. Interatrial and interventricular septum intact. Trace amount of aortic regurgitation. The mitral valve is normal. The tricuspid valve appears structurally normal. Unable to estimate RVSP due to inadequate TR jet s pectral doppler profile. Trace/mild (physiologic) pulmonic regurgitation. The aortic root size is normal. IVC Not well visulized. There is no pericardial effusion. CONCLUSIONS -------- 1. The left ventricular size is normal. 2. There is borderline concentric left ventricular hypertrophy. 3. Overall left ventricular systolic function is normal with, an EF between 60 - 65 %. 4. Trace amount of aortic regurgitation. 5. Trace/mild (physiologic) pulmonic regurgitation. 6. There is no pericardial effusion. [employer]IO OPERATOR: Lanie Pritchett [facility]
== END 2021-01-31 14:16 | disposition home or self-care (01) ==
LOC: EC 10:50 → 6NMEDSUR 16:16
PROVIDERS: ADMIT Internal Medicine; ATTEND Internal Medicine
DX: H54.62 Unqualified visual loss, left eye, normal vision right eye (principal); H57.12 Ocular pain, left eye; J32.9 Chronic sinusitis, unspecified; R70.0 Elevated erythrocyte sedimentation rate; I11.9 Hypertensive heart disease without heart failure; R94.31 Abnormal electrocardiogram [ECG] [EKG]; E11.9 Type 2 diabetes mellitus without complications; J45.909 Unspecified asthma, uncomplicated; M19.90 Unspecified osteoarthritis, unspecified site; F41.9 Anxiety disorder, unspecified; Z20.822 Contact with and (suspected) exposure to COVID-19; Z79.4 Long term (current) use of insulin; Z79.1 Long term (current) use of non-steroidal anti-inflammatories (NSAID); Z79.84 Long term (current) use of oral hypoglycemic drugs; Z79.899 Other long term (current) drug therapy; Z88.1 Allergy status to other antibiotic agents; Z88.8 Allergy status to other drugs, medicaments and biological substances; Z91.048 Other nonmedicinal substance allergy status; Z86.14 Personal history of Methicillin resistant Staphylococcus aureus infection; Z87.440 Personal history of urinary (tract) infections; Z90.49 Acquired absence of other specified parts of digestive tract; Z90.79 Acquired absence of other genital organ(s); Z90.721 Acquired absence of ovaries, unilateral; Z87.891 Personal history of nicotine dependence; Z98.890 Other specified postprocedural states; Z87.828 Personal history of other (healed) physical injury and trauma; Z80.52 Family history of malignant neoplasm of bladder; Z82.49 Family history of ischemic heart disease and other diseases of the circulatory system; Z83.49 Family history of other endocrine, nutritional and metabolic diseases
CPT/HCPCS: 96360; 96361; 99285; 36415; 93005; 93306; 85379; 80061; 80053; 80048; 85652; 82607; 82746; 85025 ×2; 86140; 81003; 80306; 83036; 87635; 71045; 93880; 70450; G0378 ×2

== ENCOUNTER 2021-01-31 16:33 | Inpatient (IN) | payer OTHER ==
--- NOTE | 2021-01-31 18:01 | ED ---
General Adult HPI - General Chief complaint: Eye Problems Stated complaint: sent by PCP for a steroid drip Time Seen by Provider: 01/31/21 17:09 Source: patient Mode of arrival: ambulatory Limitations: no limitations - History of Present Illness Initial comments: Dictation was produced using [employer] dictation software. please excuse any grammatical, word or spelling errors. Chief Complaint: 60-year-old female sent in by shoe lacer for concerns of temporal arteritis History of Present Illness: 60-year-old female she's had unilateral left-sided vision loss for the last 7-10 days. She was just in the hospital admitted for unilateral vision loss. She is discharged to follow-up with shoe lacer to do a more detailed retinal exam in the ophthalmology office. History was obtained from Dr. Linares who dilated her pupils and visualize her retina. There is concern of decreased perfusion to the optic nerve causing vision loss. Vice President Payer is concerned about temporal arteritis. Patient states she does have some mild headache to the left temporal area. No jaw claudication. No pain over the superficial temporal artery. The ROS documented in this emergency department record has been reviewed and confirmed by me. Those systems with pertinent positive or negative responses have been documented in the HPI. All other systems are other negative and/or noncontributory. PHYSICAL EXAM: General Impression: Alert and oriented x3, not in acute distress HEENT: Normocephalic atraumatic, extra-ocular movements intact, pupils equal and reactive to light bilaterally, mucous membranes moist. Cardiovascular: Heart regular rate and rhythm Chest: Able to complete full sentences, no retractions, no tachypnea Abdomen: abdomen soft, non-tender, non-distended, no organomegaly Musculoskeletal: Pulses present and equal in all extremities, no peripheral edema Motor: no focal deficits noted Neurological: o focal motor or sensory deficits noted Skin: Intact with no visualized rashes Psych: Normal affect and mood ED course: 60-year-old well-appearing feel presents to the emergency department for abnormal retinal exam and concern by shoe lacer for temporal arteritis. He requested the patient be readmitted, started on steroids and admitted to the hospital. Patient is agreeable plan. Patient will be readmitted to the hospital consultation to neurology and ophthalmology. Patient given 1000 mg of methylprednisolone. Vascular surgery will be consulted for temporal artery biopsy.Chart review was performed. Patient had CRP yesterday ordered and was measured to be normal. ESR was measured to be 21. She reports that she was scheduled for outpatient MRI. - Related Data Home Medications Medication Instructions Recorded Confirmed Gabapentin [Neurontin] 900 mg PO HS 05/27/15 01/31/21 Citalopram Hydrobromide [CeleXA] 40 mg PO DAILY 11/02/16 01/31/21 metFORMIN HCL [Glucophage] 1,000 mg PO BID 11/02/16 01/31/21 Atorvastatin [Lipitor] 10 mg PO DAILY 01/30/21 01/31/21 Celecoxib [CeleBREX] 200 mg PO BID 01/30/21 01/31/21 DULoxetine HCL [Cymbalta] 30 mg PO DAILY 01/30/21 01/31/21 Fluticasone Nasal [place] [Flonase 2 spray EA NOSTRIL HS 01/30/21 01/31/21 Nasal [place]] Insulin Glargine [Lantus Vial] 20 - 22 units SQ HS 01/30/21 01/31/21 Insulin Regular [HumuLIN R] See Protocol SQ AC-TID PRN 01/30/21 01/31/21 Previous Rx's Medication Instructions Recorded Aspirin 81 mg PO DAILY #30 tab 01/31/21 Allergies Allergy/AdvReac Type Severity Reaction Status Date / Time alendronate sodium Allergy Unknown JOINT PAIN Verified 01/31/21 17:54 [From Fosamax] amitriptyline HCl Allergy Unknown HEART Verified 01/31/21 17:54 [From Elavil] PALPITATIONS tetracycline Allergy Unknown Rash/Hives, Verified 01/31/21 17:54 RED CHEEKS adhesive tape AdvReac Severe MARIE Verified 01/31/21 17:54 SKIN, SORES Review of Systems ROS Statement: Those systems with pertinent positive or pertinent negative responses have been documented in the HPI. ROS Other: All systems not noted in ROS Statement are negative. Past Medical History Past Medical History: Asthma, Diabetes Mellitus, Osteoarthritis (OA) Additional Past Medical History / Comment(s): DOM SHOULER DISLOCATION (HAS DIFFICULTY LIFTING OVER HER HEAD), TYPE 2 DIABETES. . History of Any Multi-Drug Resistant Organisms: MRSA Date of last positivie culture/infection: 06/25/15 MDRO Source:: URINE Past Surgical History: Cholecystectomy, Hernia Repair, Tonsillectomy Additional Past Surgical History / Comment(s): HERNIA REPAIR BABY, INTESTINAL BYPASS WITH GALL BLADDER DUE TO BLOCKAGE AT BILE DUCT(2005), RECONSTRUCTIVE SURGERY RIGHT FOOT X2, RIGHT OVARY AND TUBE REMOVED, LEFT PARTIAL OVARY REMOVED .06-06-15 TOTAL RT KNEE Past Anesthesia/Blood Transfusion Reactions: No Reported Reaction Past Psychological History: Anxiety Smoking Status: Former smoker Past Alcohol Use History: Rare Past Drug Use History: None Reported - Past Family History Father Family Medical History: Cancer Additional Family Medical History / Comment(s): BLADDER CANCER. Mother Family Medical History: Hyperlipidemia, Hypertension General Exam Limitations: no limitations Course Vital Signs 01/31/21 17:01 Temperature 98.4 F Pulse Rate 79 Respiratory 16 Rate Blood Pressure 166/96 O2 Sat by Pulse 97 Oximetry Disposition Clinical Impression: Vision loss Disposition: ADMITTED IP TO THIS HOSP Condition: Fair Referrals: Benito Gonzalez DO [Primary Care Provider] - 1-2 days
[2021-01-31] MEDS ORDERED: methylPREDNISolone SOD SUCC 1,000 MG in SODIUM CHLORIDE 0.9% 250 ML IVPB STA (18:02)
[2021-01-31] MEDS ORDERED: NALOXONE 0.4 MG/ML 1 ML VIAL IV PRN (18:05)
[2021-01-31] MEDS: SODIUM CHLORIDE 0.9% 1,000 ML IV SCH (18:37)
[2021-01-31] MEDS: ALPRAZolam 0.25 MG TAB PO PRN (18:52)
--- NOTE | 2021-01-31 20:22 | HP ---
HISTORY AND PHYSICAL DATE OF SERVICE: 01/31/2021. CHIEF COMPLAINTS: Visual difficulty. HISTORY OF PRESENT ILLNESS: This 60-year-old woman with a past medical history of multiple medical problems including asthma, diabetes type 2, DJD being followed Dr. Gonzalez in the outpatient setting was recently admitted with visual difficulties on the left eye. The patient was found to have an ophthalmology consultation per ophthalmology recommendations, the patient was discharged and the patient went to Dr. handley and the possibility of either stroke behind the eye or temporal artery disease was raised and the patient was asked to come back to the hospital by chip unloader. The patient was in the ER. IV steroids being initiated. Neurology, Dr. Sifuentes is following the patient closely. MRI is being planned. There is no history of fever, rigors or chills. No history of headache, loss of consciousness or seizures. Blood pressure is slightly elevated. Patient is slightly anxious. PAST MEDICAL HISTORY: Asthma, diabetes, history of DJD, bilateral shoulder dislocation. HOME MEDICATIONS: Reviewed and include: Metformin, Humulin, Lantus, Neurontin, Cymbalta, aspirin, doses reviewed. ALLERGIES: FOSAMAX, ELAVIL, TETRACYCLINE, ADHESIVE TAPES. FAMILY HISTORY: History of bladder cancer family. SOCIAL HISTORY: Previous history of smoking. No history of alcohol intake. REVIEW OF SYSTEMS: ENT: As mentioned earlier. Cardiovascular: No angina or palpitations. Respiratory: As mentioned earlier. GI: As mentioned earlier. no dysuria or retention. Nervous system: No numbness or weakness. Allergy/Immunology: No asthma or hayfever. MUSCULOSKELETAL as mentioned earlier. Hematology/Oncology: No history of anemia. Endocrine: As mentioned earlier. Constitutional: As mentioned earlier. Dermatology: Negative. Rheumatology: Negative. Psychiatric: As mentioned earlier. PHYSICAL EXAMINATION: Alert and oriented times three. Pulse 79, blood pressure 166/96, respirations 16, temperature 98.4, pulse ox 97% on room air. HEENT is conjunctivae normal. Oral mucosa moist. NECK: No JVD. CARDIOVASCULAR: S1, S2. RESPIRATION: Breath sounds diminished in the bases. No rhonchi. No crackles. ABDOMEN: Soft, nontender. No mass palpable. LEGS: No edema. No swelling. NERVOUS SYSTEM: Higher functions as mentioned earlier. Cranial nerves, significant visual difficulties on the left eye with possibly afferent pupillary defect also present. Otherwise the cranial nerves are normal. Power . SKIN: No ulcer, rash and no bleeding. JOINTS: No active deforming arthropathy. LABS: At this time shows labs are reviewed. ASSESSMENT: 1. Left eye monocular vision loss, possible optic neuritis versus temporal arteritis. 2. History of asthma. 3. Diabetes mellitus type 2. 4. History of degenerative joint disease. 5. History of bilateral hip dislocation. 6. History of MRSA. 7. History of cholecystectomy. 8. History of hernia surgery. 9. History of anxiety. 10.Remote history of nicotine dependence. 11.FULL CODE. RECOMMENDATIONS AND DISCUSSION: This 60-year-old woman who presented with multiple complex medical issues, at this time I recommend continue current medications, management and continue the high-dose IV steroids. Monitor blood sugars closely. Vascular surgery consultation, temporal artery biopsies. Continue with follow with Neurology. Prognosis guarded because of multiple complex medical issues. Further recommendations to follow. A copy of this dictation is being forwarded to Dr. Gonzalez who is the primary physician. MMRAULL / IJN: [id number] / MTDMyles
[2021-01-31 20:36] LABS: C Reactive Protein 0.7 mg/dL (<1.0)
[2021-02-01 00:21] LABS: Glucose,Whole Blood 312 mg/dL (75-99)
[2021-02-01 00:21] LABS: Glucose,Whole Blood 260 mg/dL (75-99)
[2021-02-01] MEDS ORDERED: INSULIN DETEMIR (LEVEMIR) 100 UNIT/ML SYR SQ SCH (01:30)
[2021-02-01] MEDS: GABAPENTIN 300 MG CAP PO SCH ×2 (01:39→21:23)
[2021-02-01 07:13] LABS: Glucose,Whole Blood 332 mg/dL (75-99)
[2021-02-01 07:56] LABS: Basophils % (A) 0 %; Eosinophils % (A) 0 %; HCT 39.8 % (34.0-46.0); HGB 12.9 gm/dL (11.4-16.0); Lymphocytes # (A) 1.7 k/uL (1.0-4.8); Lymphocytes % (A) 13 %; MCH 31.4 pg (25.0-35.0); MCHC 32.5 g/dL (31.0-37.0); MCV 96.5 fL (80.0-100.0); Mean Platelet Volume 8.9; Monocytes # (A) 0.1 k/uL (0-1.0); Monocytes % (A) 1 %; Neutrophils # (A) 11.1 k/uL (1.3-7.7); Neutrophils % (A) 85 %; Platelet Count 255 k/uL (150-450); RBC 4.13 m/uL (3.80-5.40); RDW 12.7 % (11.5-15.5)
[2021-02-01] MEDS: DULoxetine HCL 30 MG CAPSULE.DR PO SCH (11:28)
[2021-02-01] MEDS: metFORMIN 500 MG TAB PO SCH ×2 (11:28→21:23)
[2021-02-01] MEDS: ASPIRIN 81 MG PO SCH (11:28)
[2021-02-01] MEDS: ATORVASTATIN 10 MG TAB PO SCH (11:28)
[2021-02-01] MEDS: CITALOPRAM HYDROBROMIDE 20 MG TAB PO SCH (11:28)
[2021-02-01] MEDS ORDERED: INSULIN REGULAR 100 UNIT/ML VIAL (IM/SQ) SQ PRN (11:33)
[2021-02-01 12:29] LABS: Rheumatoid Factor, Qnt <10 IU/mL (0-15)
[2021-02-01 12:37] LABS: African American GFR (CKD) 104.8 (60.0-200.0); Anion Gap 14.6 mmol/L (4.00-12.00); BUN/Creat Ratio 18.92 Ratio (12.00-20.00); Blood Urea Nitrogen 13.7 mg/dL (9.0-27.0); Calcium 8.4 mg/dL (8.7-10.3); Carbon Dioxide 18.4 mmol/L (21.6-31.8); Non-African American GFR(CKD) 90.4 (60.0-200.0); Potassium 4.3 mmol/L (3.5-5.5)
[2021-02-01 12:55] LABS: Glucose,Whole Blood 404 mg/dL (75-99)
[2021-02-01] MEDS: ALPRAZolam 0.25 MG TAB PO PRN ×2 (12:56→21:24)
--- NOTE | 2021-02-01 13:44 | XR ---
EXAMINATION TYPE: XR skull limited DATE OF EXAM: 02/01/2021 COMPARISON: NONE HISTORY: 60-year-old female left ear x-ray for MRI clearance, prior left ear surgery. TECHNIQUE: 2 views FINDINGS: There is metallic dental amalgam. However, no additional metal density is seen throughout the remaind er of the head with particular attention to the region of the temporal bones. IMPRESSION: Dental amalgam but otherwise, no other metal is seen, particular attention to the left temporal bone. Clear for MRI.
[2021-02-01] MEDS: INSULIN ASPART (NovoLOG) 100 UNIT/ML VIAL SQ SCH ×2 (15:14→17:55)
--- NOTE | 2021-02-01 15:14 | MR ---
EXAMINATION TYPE: MR orbits wo/w con DATE OF EXAM: 02/01/2021 COMPARISON: None HISTORY: Vision loss left eye, ?CVA CONTRAST: Standard multiplanar, multisequence MRI departmental protocol images were obtained without contrast a nd with 9 mL intravenous Gadavist gadolinium contrast. There is cerebral cortical atrophy. There is no mass effect nor midline shift. Diffusion images show no evidence of an acute infarct. There is no evidence of orbital mass. Retro-orbital soft tissues appear normal. The globes are symmet melyssa. Sella turcica is intact. Optic chiasm appears normal. Pituitary stalk is in the midline. There is some mucosal thickening in the left side sphenoid sinus. IMPRESSION: Mild cerebral atrophy. No acute intracranial abnormality. No focal orbital abnormality. Mild ethmoid and left side sphenoid sinusitis.
--- NOTE | 2021-02-01 16:40 | P.CNNES ---
History of Present Illness Consult date: 02/01/21 Requesting physician: Alphonse Lopez Reason for Consult: Unilateral vision loss History of Present Illness: This is a Teleneurology consultation performed today on 02/01/2021. Patient is a 60-year-old female, known to me from yesterday. Please refer to my note for details. Patient has presented with acute vision loss involving the left eye, that started about 10 days ago. Patient was in the process of following up with ENT specialist regarding sinus issues and left eye pressure. Patient felt the loss of vision in the left eye was related to sinus issues. She stayed home until referred to the ER by ENT specialist, who after performing left tympanostomy tube placement in the left ear, and without improvement in her visual symptoms, referred her to the ER. Patient was admitted to the hospital. She had a normal ESR and CRP. Patient was started on aspirin. Patient had a normal carotid Doppler, 2-D echo. Patient was discharged from the hospital in order to be seen by grocery store clerk Dr. Olivia. According to the ED report, patient was seen by Dr. Liyah duke, grocery store clerk who dilated her pupils, and visualize her retina. There is concern of decreased perfusion to the optic nerve causing vision loss. [facility] was concerned about temporal arteritis. Patient did complain of mild headache to the left temporal area. No jaw claudication. No pain over the superior temporal artery. Left temporal artery biopsy was recommended. Patient has not noticed any improvement in her vision in the left eye. However since she woke up this morning, she is noticing some brown patch involving the right side of the sclera, which is very acute, onset since this morning. Patient is not having any visual symptoms on the right side otherwise. Denies any other focal neurological symptoms. Review of Systems Denies any fever or chills. Complains of mild headache involving the left temporal region. Denies any slurred speech, facial droop. Patient does have chronic sinus issues. She has mild inspiratory stridor like sound noticeable. No abdominal pain, nausea vomiting diarrhea. Past Medical History Past Medical History: Asthma, Diabetes Mellitus, Osteoarthritis (OA) Additional Past Medical History / Comment(s): DOM SHOULER DISLOCATION (HAS DIFFICULTY LIFTING OVER HER HEAD), TYPE 2 DIABETES. . History of Any Multi-Drug Resistant Organisms: MRSA Date of last positivie culture/infection: 06/25/15 MDRO Source:: URINE Past Surgical History: Cholecystectomy, Hernia Repair, Tonsillectomy Additional Past Surgical History / Comment(s): HERNIA REPAIR BABY, INTESTINAL BYPASS WITH GALL BLADDER DUE TO BLOCKAGE AT BILE DUCT(2005), RECONSTRUCTIVE SURGERY RIGHT FOOT X2, RIGHT OVARY AND TUBE REMOVED, LEFT PARTIAL OVARY REMOVED .06-06-15 TOTAL RT KNEE Past Anesthesia/Blood Transfusion Reactions: No Reported Reaction Past Psychological History: Anxiety Smoking Status: Former smoker Past Alcohol Use History: Rare Additional Past Alcohol Use History / Comment(s): QUIT SMOKING 4-5 YEARS AGO. SMOKED OVER 10 YEARS. SMOKED 1/2 PPD OR LESS. Past Drug Use History: None Reported - Past Family History Father Family Medical History: Cancer Additional Family Medical History / Comment(s): BLADDER CANCER. Mother Family Medical History: Hyperlipidemia, Hypertension Medications and Allergies Home Medications Medication Instructions Recorded Confirmed Type Gabapentin [Neurontin] 900 mg PO HS 05/27/15 01/31/21 History Citalopram Hydrobromide [CeleXA] 40 mg PO DAILY 11/02/16 01/31/21 History metFORMIN HCL [Glucophage] 1,000 mg PO BID 11/02/16 01/31/21 History Atorvastatin [Lipitor] 10 mg PO DAILY 01/30/21 01/31/21 History Celecoxib [CeleBREX] 200 mg PO BID 01/30/21 01/31/21 History DULoxetine HCL [Cymbalta] 30 mg PO DAILY 01/30/21 01/31/21 History Fluticasone Nasal [place] [Flonase 2 spray EA NOSTRIL HS 01/30/21 01/31/21 History Nasal Dep[place]w] Insulin Glargine [Lantus Vial] 20 - 22 units SQ HS 01/30/21 01/31/21 History Insulin Regular [HumuLIN R] See Protocol SQ AC-TID PRN 01/30/21 01/31/21 History Aspirin 81 mg PO DAILY #30 tab 01/31/21 01/31/21 Rx Allergies Allergy/AdvReac Type Severity Reaction Status Date / Time alendronate sodium Allergy Unknown JOINT PAIN Verified 01/31/21 17:54 [From Fosamax] amitriptyline HCl Allergy Unknown HEART Verified 01/31/21 17:54 [From Elavil] PALPITATIONS tetracycline Allergy Unknown Rash/Hives, Verified 01/31/21 17:54 RED CHEEKS adhesive tape AdvReac Severe MARIE Verified 01/31/21 17:54 SKIN, SORES Physical Examination - Vital Signs Vital Signs: Vital Signs Temp Pulse Pulse Resp BP BP Pulse Ox 02/01/21 12:36 98.6 F 90 18 166/91 92 L 02/01/21 05:27 97.6 F 85 18 134/82 95 02/01/21 00:29 97.6 F 78 18 154/99 94 L 01/31/21 23:35 97.7 F 76 18 146/92 95 01/31/21 20:20 98.0 F 73 16 141/91 94 L 01/31/21 18:50 74 18 151/91 96 01/31/21 17:01 98.4 F 79 16 166/96 97 Patient is a late middle aged female, very pleasant, in no acute distress. Patient is alert awake oriented to time place and person. Speech and language functions are normal. Attention, concentration and fund of knowledge is adequate. On cranial examination, pupils are round and reacting to light, she has left APD. Patient has some triangular discoloration of the right side of the sclera of the right eye. This is very new. This was not present yesterday. Her visual jesus are full on confrontation with the right eye. No vision in the left eye. Extraocular muscles are intact. Face is symmetric, tongue protrudes to the midline. Palatal elevation and sensation normal, hearing and shoulder shrug normal, facial sensation normal. Shoulder shrug normal. On muscle strength testing, there is no pronator drift and the strength is normal in arms and legs distally and proximally. Deep tendon reflexes are symmetric, 1+ and plantars are downgoing bilaterally. Sensory to touch is equal with no neglect. Cerebellar function showed no ataxia for [id number] testing. No dysdiadochokinesia. Tone and bulk of muscles normal. Gait normal. On general examination, there is no carotid bruit or murmur, S1-S2 audible. Abdomen is soft nontender. Chest is clear. Peripheral pulses are present. No edema. Results - Laboratory Findings CBC and BMP: 02/01/21 06:46 02/01/21 06:46 Abnormal Lab Findings: Abnormal Labs 02/01/21 02/01/21 02/01/21 00:18 00:20 06:46 WBC 13.0 H Neutrophils # 11.1 H Carbon Dioxide Anion Gap Glucose POC Glucose (mg/dL) 312 H 260 H Calcium 02/01/21 02/01/21 02/01/21 06:46 07:10 12:38 WBC Neutrophils # Carbon Dioxide 18.4 L Anion Gap 14.60 H Glucose 361 H POC Glucose (mg/dL) 332 H 404 H Calcium 8.4 L Assessment and Plan Assessment: * Unilateral rapid onset complete vision loss, left eye 10 days ago. Although the ESR and CRP are normal, but grocery store clerk is concerned about temporal arteritis. * New onset vascular abnormality involving the right lateral scleral region of the right eye, without underlying visual disturbance of unclear etiology. * Hypertension * Diabetes * X tobacco use Plan: * Vascular surgery consult for left temporal artery biopsy. * Ophthalmology consultation for new onset symptoms involving the right eye (scleral vascular prominence) * Patient has received Solu-Medrol 1 g IVPB yesterday. We will continue Solu- Medrol 1 g IVPB daily for 3 days. * Repeat ESR 20 and CRP 0.7, both normal. * Rheumatoid factor negative, MARY ANN pending. Myers virus PCR negative. * Hemoglobin A1c 7.4 * Lipid panel with cholesterol 106, LDL 59.4, HDL 30, triglycerides 83. * Stat MRI of the orbits was performed with and without contrast, which revealed no acute process. No acute CVA. Mild ethmoid and left sphenoid sinusitis. * Carotid Doppler showed no hemodynamically significant stenosis of proximal ICA bilaterally. Antegrade flow in both vertebral arteries. * 2-D echo revealed normal left-ventricular size. Borderline concentric LVH. EF is between 60-65%.
[2021-02-01 17:08] LABS: Glucose,Whole Blood 317 mg/dL (75-99)
[2021-02-01] MEDS ORDERED: INSULIN REGULAR BOLUS (FROM DRIP BAG) IV ONE ×2 (17:35→19:39)
--- NOTE | 2021-02-01 20:01 | PN ---
PROGRESS NOTE DATE OF SERVICE: 02/01/2021 This 60-year-old woman who was admitted with significant vision difficulty in the left eye was being followed by Dr. Gonzalez in the outpatient setting. The patient was recently admitted and Dr. Olivia evaluated the patient. The patient had some redness of the right eye also. The MRI of the optic system did not show any focal lesions. The patient was started on high-dose IV steroids. No chest pain. No palpitations. Past medical history reviewed. REVIEW OF SYSTEMS: Please refer to the previous dictation. MEDICATION AND SOCIAL HISTORY: Please refer to the previous dictation. PHYSICAL EXAMINATION: Patient is alert and oriented. Pulse 72, blood pressure 174/84, respiration 20, temperature normal, pulse ox normal. HEENT: Conjunctivae normal. Right eye subconjunctival congestion present. NECK: No jugular venous distention. CARDIOVASCULAR: S1, S2 muffled. RESPIRATION: Breath sounds diminished at the bases. No rhonchi. ABDOMEN: Soft. LEGS: No edema. No swelling. NERVOUS SYSTEM: Left eye diminished vision. There is no other focal deficit. LABS: WBC 13, hemoglobin 12.9. Other labs noted. ASSESSMENT: 1. Left eye visual loss, possibly optic neuritis. 2. Increased white count. 3. History of asthma. 4. Diabetes mellitus, type 2. 5. History of degenerative joint disease. 6. History of bilateral shoulder dislocation. 7. History of MRSA. 8. History of cholecystectomy. 9. History of hernia surgery. 10.History of anxiety. 11.Remote history of nicotine dependence. 12.FULL CODE. RECOMMENDATIONS AND DISCUSSION: I recommend to continue current medications, continue with symptomatic treatment. Continue to monitor. High-dose IV steroids. I would also recommend IV insulin drip. Prognosis guarded. Further recommendations to follow. Closely follow with Neurology. MMODL / IJN: [id number] /
[2021-02-01 20:35] LABS: Glucose,Whole Blood 389 mg/dL (75-99)
[2021-02-01] MEDS: INSULIN REGULAR 100 UNIT in SODIUM CHLORIDE 0.9% 100 ML IV SCH (20:46)
[2021-02-01] MEDS ORDERED: GABAPENTIN 300 MG CAP PO SCH (21:00)
[2021-02-01 21:37] LABS: Glucose,Whole Blood 346 mg/dL (75-99)
[2021-02-01] MEDS ORDERED: methylPREDNISolone SOD SUCC 1,000 MG in SODIUM CHLORIDE 0.9% 250 ML IVPB STA (21:38)
[2021-02-01 22:20] LABS: Glucose,Whole Blood 301 mg/dL (75-99)
[2021-02-01 22:49] LABS: Glucose,Whole Blood 183 mg/dL (75-99)
--- NOTE | 2021-02-01 22:56 | CONS ---
CONSULTATION The patient was admitted yesterday due to loss of vision in the left eye and was started on Megace, steroids, intravenous Solu-Medrol, and the pain in the left side has subsided, but the patient is developing today conjunctival injection. Eye examination: Vision right eye 20/20, left eye is light perception. Extraocular motility full. Pupil shows left relative afferent pupillary defect. An intra-ocular pressure was 17 mmHg both eyes. The conjunctiva showed cork screw was clear blood vessels in both eyes. The retina was normal as previously indicated. ASSESSMENT: 1. Left ischemic optic neuritis. 2. Bilateral dilated scleral blood vessels. PLAN: MRI was done for the orbits and for the brain and neck which was normal. I am worried about the new condition which is happening which is dilated blood vessels on both eyes. This could be due to cavernous sinus problems or congestion of the venous system. I spoke with Dr. Hall and who spoke with the radiologist and the radiologist is going to do more evaluation of the cavernous sinus area and optic nerves. I will re-examine the patient tomorrow. The whole medical system was reviewed on arrival. Thank you for this consultation. MMODL / IJN: [id number] /
[2021-02-01] MEDS: FLUTICASONE 50MCG/SPRAY NASAL 16GM EA NOSTRIL SCH (23:31)
[2021-02-02 00:48] LABS: Glucose,Whole Blood 153 mg/dL (75-99)
[2021-02-02] MEDS: AMPICILLIN-SULBACTAM 3 GM in SODIUM CHLORIDE 0.9% 100 ML IVPB SCH ×5 (02:17→23:27)
[2021-02-02] MEDS: SODIUM CHLORIDE 0.9% 1,000 ML IV SCH ×2 (02:49→20:34)
[2021-02-02 02:55] LABS: Glucose,Whole Blood 174 mg/dL (75-99)
[2021-02-02 05:15] LABS: Glucose,Whole Blood 167 mg/dL (75-99)
[2021-02-02 07:17] LABS: Glucose,Whole Blood 227 mg/dL (75-99)
[2021-02-02] MEDS ORDERED: INSULIN ASPART (NovoLOG) 100 UNIT/ML VIAL SQ SCH (07:30)
[2021-02-02 07:57] LABS: Basophils % (A) 0 %; Eosinophils % (A) 0 %; HCT 37.9 % (34.0-46.0); HGB 12.3 gm/dL (11.4-16.0); Lymphocytes % (A) 14 %; MCH 31.5 pg (25.0-35.0); MCHC 32.4 g/dL (31.0-37.0); MCV 97.4 fL (80.0-100.0); Mean Platelet Volume 9.2; Monocytes # (A) 0.2 k/uL (0-1.0); Monocytes % (A) 1 %; Neutrophils # (A) 11.8 k/uL (1.3-7.7); Neutrophils % (A) 84 %; Platelet Count 261 k/uL (150-450); RBC 3.89 m/uL (3.80-5.40); RDW 12.8 % (11.5-15.5); WBC 14.1 k/uL (3.8-10.6)
[2021-02-02] MEDS: metFORMIN 500 MG TAB PO SCH ×2 (08:03→20:25)
[2021-02-02] MEDS: CITALOPRAM HYDROBROMIDE 20 MG TAB PO SCH (08:03)
[2021-02-02] MEDS: ASPIRIN 81 MG PO SCH (08:03)
[2021-02-02] MEDS: DULoxetine HCL 30 MG CAPSULE.DR PO SCH (08:03)
[2021-02-02] MEDS: ATORVASTATIN 10 MG TAB PO SCH (08:03)
[2021-02-02] MEDS: MELOXICAM 7.5 MG TAB PO SCH (08:03)
[2021-02-02] MEDS: methylPREDNISolone SOD SUCC 1,000 MG in SODIUM CHLORIDE 0.9% 250 ML IVPB SCH (08:57)
[2021-02-02] MEDS: INSULIN REGULAR 100 UNIT in SODIUM CHLORIDE 0.9% 100 ML IV SCH (08:58)
[2021-02-02 09:27] LABS: Glucose,Whole Blood 244 mg/dL (75-99)
[2021-02-02 11:13] LABS: Glucose,Whole Blood 143 mg/dL (75-99)
--- NOTE | 2021-02-02 11:20 | P.GSCN ---
History of Present Illness Consult date: 02/02/21 History of present illness: Patient is a 60-year-old female who came in to the hospital with acute vision loss of her left eye. At the time she also had some pain and pressure at that area. She initially thought it was related to to sinus issues. Her laboratories were consistent with normal ESR and CRP. She was evaluated by ophthalmology who recommended temporal artery biopsy. Patient states that overall her pain is improved. She still has no vision return in her left eye. She denies a fevers, chills, nausea, vomiting or issues otherwise Review of Systems 14 point review of systems performed. Pertinent positives and negatives per the HPI Past Medical History Past Medical History: Asthma, Diabetes Mellitus, Osteoarthritis (OA) Additional Past Medical History / Comment(s): DOM SHOULER DISLOCATION (HAS DIFFICULTY LIFTING OVER HER HEAD), TYPE 2 DIABETES. . History of Any Multi-Drug Resistant Organisms: MRSA Year Discovered:: 06/25/15 MDRO Source:: URINE Past Surgical History: Cholecystectomy, Hernia Repair, Tonsillectomy Additional Past Surgical History / Comment(s): HERNIA REPAIR BABY, INTESTINAL BYPASS WITH GALL BLADDER DUE TO BLOCKAGE AT BILE DUCT(2005), RECONSTRUCTIVE SURGERY RIGHT FOOT X2, RIGHT OVARY AND TUBE REMOVED, LEFT PARTIAL OVARY REMOVED .06-06-15 TOTAL RT KNEE Past Anesthesia/Blood Transfusion Reactions: No Reported Reaction Past Psychological History: Anxiety Smoking Status: Former smoker Past Alcohol Use History: Rare Additional Past Alcohol Use History / Comment(s): QUIT SMOKING 4-5 YEARS AGO. SMOKED OVER 10 YEARS. SMOKED 1/2 PPD OR LESS. Past Drug Use History: None Reported - Past Family History Father Family Medical History: Cancer Additional Family Medical History / Comment(s): BLADDER CANCER. Mother Family Medical History: Hyperlipidemia, Hypertension Medications and Allergies Home Medications Medication Instructions Recorded Confirmed Type Gabapentin [Neurontin] 900 mg PO HS 05/27/15 01/31/21 History Citalopram Hydrobromide [CeleXA] 40 mg PO DAILY 11/02/16 01/31/21 History metFORMIN HCL [Glucophage] 1,000 mg PO BID 11/02/16 01/31/21 History Atorvastatin [Lipitor] 10 mg PO DAILY 01/30/21 01/31/21 History Celecoxib [CeleBREX] 200 mg PO BID 01/30/21 01/31/21 History DULoxetine HCL [Cymbalta] 30 mg PO DAILY 01/30/21 01/31/21 History Fluticasone Nasal [place] [Flonase 2 spray EA NOSTRIL HS 01/30/21 01/31/21 History Nasal Theodore] Insulin Glargine [Lantus Vial] 20 - 22 units SQ HS 01/30/21 01/31/21 History Insulin Regular [HumuLIN R] See Protocol SQ AC-TID PRN 01/30/21 01/31/21 History Aspirin 81 mg PO DAILY #30 tab 01/31/21 01/31/21 Rx Allergies Allergy/AdvReac Type Severity Reaction Status Date / Time alendronate sodium Allergy Unknown JOINT PAIN Verified 01/31/21 17:54 [From Fosamax] amitriptyline HCl Allergy Unknown HEART Verified 01/31/21 17:54 [From Elavil] PALPITATIONS tetracycline Allergy Unknown Rash/Hives, Verified 01/31/21 17:54 RED CHEEKS adhesive tape AdvReac Severe MARIE Verified 01/31/21 17:54 SKIN, SORES Surgical - Exam Vital Signs Temp Pulse Resp BP Pulse Ox 98.4 F 79 16 166/96 97 01/31/21 17:01 01/31/21 17:01 01/31/21 17:01 01/31/21 17:01 01/31/21 17:01 Gen. is a pleasant cooperative female in no acute distress. HEENT is normocephalic, atraumatic, extraocular motion intact. Injected right sclera. Wears glasses. Neck is supple. Trachea is midline. Heart is regular. Lungs are clear bilaterally. Abdomen is soft, nontender nondistended. Extremity show no clubbing, cyanosis or edema. Palpable radial pulses. Normal mood and affect Results - Labs 02/02/21 07:17 02/01/21 06:46 Abnormal Lab Results - Last 24 Hours (Table) 02/01/21 02/01/21 02/01/21 Range/Units 06:46 12:38 17:04 WBC (3.8-10.6) k/uL Neutrophils # (1.3-7.7) k/uL Carbon Dioxide 18.4 L (21.6-31.8) mmol/L Anion Gap 14.60 H (4.00-12.00) mmol/L Glucose 361 H (70-110) mg/dL POC Glucose (mg/dL) 404 H 317 H (75-99) mg/dL Calcium 8.4 L (8.7-10.3) mg/dL 02/01/21 02/01/21 02/01/21 Range/Units 20:31 21:31 22:07 WBC (3.8-10.6) k/uL Neutrophils # (1.3-7.7) k/uL Carbon Dioxide (21.6-31.8) mmol/L Anion Gap (4.00-12.00) mmol/L Glucose (70-110) mg/dL POC Glucose (mg/dL) 389 H 346 H 301 H (75-99) mg/dL Calcium (8.7-10.3) mg/dL 02/01/21 02/02/21 02/02/21 Range/Units 22:46 00:46 02:51 WBC (3.8-10.6) k/uL Neutrophils # (1.3-7.7) k/uL Carbon Dioxide (21.6-31.8) mmol/L Anion Gap (4.00-12.00) mmol/L Glucose (70-110) mg/dL POC Glucose (mg/dL) 183 H 153 H 174 H (75-99) mg/dL Calcium (8.7-10.3) mg/dL 02/02/21 02/02/21 02/02/21 Range/Units 05:02 07:16 07:17 WBC 14.1 H (3.8-10.6) k/uL Neutrophils # 11.8 H (1.3-7.7) k/uL Carbon Dioxide (21.6-31.8) mmol/L Anion Gap (4.00-12.00) mmol/L Glucose (70-110) mg/dL POC Glucose (mg/dL) 167 H 227 H (75-99) mg/dL Calcium (8.7-10.3) mg/dL 02/02/21 02/02/21 Range/Units 09:25 11:11 WBC (3.8-10.6) k/uL Neutrophils # (1.3-7.7) k/uL Carbon Dioxide (21.6-31.8) mmol/L Anion Gap (4.00-12.00) mmol/L Glucose (70-110) mg/dL POC Glucose (mg/dL) 244 H 143 H (75-99) mg/dL Calcium (8.7-10.3) mg/dL Diabetes panel 02/01/21 Range/Units 06:46 Sodium 137 (135-145) mmol/L Potassium 4.3 (3.5-5.5) mmol/L Chloride 104 (96-109) mmol/L Carbon Dioxide 18.4 L (21.6-31.8) mmol/L BUN 13.7 (9.0-27.0) mg/dL Creatinine 0.7 (0.6-1.5) mg/dL Glucose 361 H (70-110) mg/dL Calcium 8.4 L (8.7-10.3) mg/dL Calcium panel 02/01/21 Range/Units 06:46 Calcium 8.4 L (8.7-10.3) mg/dL Pituitary panel 02/01/21 Range/Units 06:46 Sodium 137 (135-145) mmol/L Potassium 4.3 (3.5-5.5) mmol/L Chloride 104 (96-109) mmol/L Carbon Dioxide 18.4 L (21.6-31.8) mmol/L BUN 13.7 (9.0-27.0) mg/dL Creatinine 0.7 (0.6-1.5) mg/dL Glucose 361 H (70-110) mg/dL Calcium 8.4 L (8.7-10.3) mg/dL Adrenal panel 02/01/21 Range/Units 06:46 Sodium 137 (135-145) mmol/L Potassium 4.3 (3.5-5.5) mmol/L Chloride 104 (96-109) mmol/L Carbon Dioxide 18.4 L (21.6-31.8) mmol/L BUN 13.7 (9.0-27.0) mg/dL Creatinine 0.7 (0.6-1.5) mg/dL Glucose 361 H (70-110) mg/dL Calcium 8.4 L (8.7-10.3) mg/dL Assessment and Plan Assessment: #1 acute left vision loss #2 rule out temporal arteritis, normal inflammatory markers Plan: We'll await final evaluation per neurology/ophthalmology and plan to go forward with a temporal artery biopsy in the near future if it continues to be recommended after further imaging is reviewed. There was some discussion regarding ENT concerns. Risks and benefits of the procedure were discussed with the patient
[2021-02-02 12:49] LABS: Glucose,Whole Blood 137 mg/dL (75-99)
[2021-02-02 13:03] LABS: African American GFR (CKD) 114.8 (60.0-200.0); Anion Gap 16.9 mmol/L (4.00-12.00); BUN/Creat Ratio 26.33 Ratio (12.00-20.00); Blood Urea Nitrogen 15.8 mg/dL (9.0-27.0); Calcium 8.3 mg/dL (8.7-10.3); Carbon Dioxide 17.1 mmol/L (21.6-31.8); Non-African American GFR(CKD) 99.1 (60.0-200.0); Potassium 4.1 mmol/L (3.5-5.5)
[2021-02-02] MEDS: ALPRAZolam 0.25 MG TAB PO PRN ×2 (13:21→23:30)
[2021-02-02 15:37] LABS: Glucose,Whole Blood 313 mg/dL (75-99)
[2021-02-02 17:24] LABS: Glucose,Whole Blood 289 mg/dL (75-99)
--- NOTE | 2021-02-02 19:33 | PN ---
PROGRESS NOTE DATE OF SERVICE: 02/01/2021 This 60-year-old woman who was admitted with significant visual loss in the left eye also had some minimal erythema on the right eye, possibly dilated conjunctival vessel, which is rather improving at this time. The patient was started on high-dose IV steroids. Patient also had possible left sphenoid sinusitis also. Patient is being closely monitored. Dr. Armenta is evaluating the patient for possible biopsy for temporal arteritis. Dr. Espinoza also following the patient from an ENT point of view. Dr. Curtis has seen the patient from Neurology from Ophthalmology point of view. Dr. Roblero is following the patient from neurology point of view. The patient was started on high-dose intravenous steroids. Blood sugars have been monitored. No chest pain. No palpitations. Past medical history reviewed. REVIEW OF SYSTEMS: CARDIOVASCULAR SYSTEM: No angina. RESPIRATION: As mentioned earlier. GI: As mentioned earlier. NEUROLOGY: As mentioned earlier. ENDOCRINE: As mentioned earlier. CURRENT MEDICATIONS: Reviewed. They include Unasyn IV, Lipitor, Celexa, Cymbalta, Flonase, Neurontin, insulin drip, Glucophage, Narcan. PHYSICAL EXAMINATION: Patient is alert, oriented x3. Pulse 85, blood pressure 150/98, respiration 18, temperature is 98.4, pulse ox 94% on room air. HEENT: Conjunctivae normal. NECK: No jugular venous distention. CARDIOVASCULAR: S1, S2 muffled. RESPIRATION: Breath sounds diminished at the bases. No rhonchi. No crackles. ABDOMEN: Soft. LEGS: No edema. No swelling. NERVOUS SYSTEM: Significant visual loss in the left eye. No other focal abnormalities. LABS: Accu-Cheks 137, 330 and 289. WBC 14.1. ASSESSMENT: 1. Left eye visual loss, possibly optic neuritis, on high-dose IV steroids empirically. 2. Increased white count. 3. History of asthma. 4. Diabetes mellitus, type 2, uncontrolled, with hyperglycemia, possibly steroid- induced, on IV insulin drip. 5. History of degenerative joint disease. 6. History of sphenoid sinusitis. 7. History of bilateral shoulder dislocation. 8. History of MRSA. 9. History of cholecystectomy. 10.History of hernia surgery. 11.History of anxiety. 12.Remote history of nicotine dependence. 13.FULL CODE. RECOMMENDATIONS AND DISCUSSION: I recommend to continue current medications, continue with symptomatic treatment. We will monitor the patient closely and will follow with multiple consultants, including ENT, Ophthalmology, Neurology, Vascular Surgery as well as Infectious Disease. Once again, the prognosis is extremely guarded, which I discussed at length with the family, who understands and agrees. Further recommendations to follow. DVT prophylaxis. MMRAULL / IJN: [id number] /
[2021-02-02 19:36] LABS: Glucose,Whole Blood 290 mg/dL (75-99)
[2021-02-02] MEDS: amLODIPine 5 MG TAB PO SCH (20:24)
[2021-02-02] MEDS: GABAPENTIN 300 MG CAP PO SCH (20:24)
[2021-02-02] MEDS: HEPARIN SODIUM,PORCINE/PF 5,000 UNIT/0.5 ML SYRINGE SQ SCH (20:24)
[2021-02-02] MEDS: FLUTICASONE 50MCG/SPRAY NASAL 16GM EA NOSTRIL SCH (20:29)
[2021-02-02 20:59] LABS: Glucose,Whole Blood 234 mg/dL (75-99)
--- NOTE | 2021-02-02 23:01 | P.PN ---
Subjective Progress Note Date: 02/02/21 This is a Tele-neurology follow performed today on 02/02/2021. Patient states her right eyes sclerae congestion has improved than yesterday. Left eye had no change. No headache. Patient probably going for left temporal artery biopsy on Wednesday. No new concerns. Objective - Vital Signs Vital signs: Vital Signs Temp 98.3 F 02/02/21 05:00 Pulse 78 02/02/21 05:00 Resp 20 02/02/21 05:00 BP 143/84 02/02/21 05:00 Pulse Ox 96 02/02/21 05:00 Intake & Output 02/01/21 02/02/21 02/02/21 18:59 06:59 18:59 Intake Total 364.125 32.917 Balance 364.125 32.917 Intake: Intake, IV Titration 64.125 32.917 Amount Insulin Regular 100 unit 64.125 32.917 In Sodium Chloride 0.9% 100 ml @ Titrate IV .Q0M JEAN CARLOS Rx#:[id number] Oral 300 Other: # Voids 2 1 - Exam Mental status, speech and language functions normal. Cranial nerves significant for pupils, round and reacting, with left APD. Scleral congestion much improv ed. Extraocular muscles intact, face is symmetric. Muscle strength normal. No ataxia. - Labs CBC & Chem 7: 02/02/21 07:17 02/02/21 07:17 Labs: Abnormal Lab Results - Last 24 Hours (Table) 02/01/21 02/01/21 02/01/21 Range/Units 06:46 12:38 17:04 WBC (3.8-10.6) k/uL Neutrophils # (1.3-7.7) k/uL Carbon Dioxide 18.4 L (21.6-31.8) mmol/L Anion Gap 14.60 H (4.00-12.00) mmol/L Glucose 361 H (70-110) mg/dL POC Glucose (mg/dL) 404 H 317 H (75-99) mg/dL Calcium 8.4 L (8.7-10.3) mg/dL 02/01/21 02/01/21 02/01/21 Range/Units 20:31 21:31 22:07 WBC (3.8-10.6) k/uL Neutrophils # (1.3-7.7) k/uL Carbon Dioxide (21.6-31.8) mmol/L Anion Gap (4.00-12.00) mmol/L Glucose (70-110) mg/dL POC Glucose (mg/dL) 389 H 346 H 301 H (75-99) mg/dL Calcium (8.7-10.3) mg/dL 02/01/21 02/02/21 02/02/21 Range/Units 22:46 00:46 02:51 WBC (3.8-10.6) k/uL Neutrophils # (1.3-7.7) k/uL Carbon Dioxide (21.6-31.8) mmol/L Anion Gap (4.00-12.00) mmol/L Glucose (70-110) mg/dL POC Glucose (mg/dL) 183 H 153 H 174 H (75-99) mg/dL Calcium (8.7-10.3) mg/dL 02/02/21 02/02/21 02/02/21 Range/Units 05:02 07:16 07:17 WBC 14.1 H (3.8-10.6) k/uL Neutrophils # 11.8 H (1.3-7.7) k/uL Carbon Dioxide (21.6-31.8) mmol/L Anion Gap (4.00-12.00) mmol/L Glucose (70-110) mg/dL POC Glucose (mg/dL) 167 H 227 H (75-99) mg/dL Calcium (8.7-10.3) mg/dL 02/02/21 02/02/21 Range/Units 09:25 11:11 WBC (3.8-10.6) k/uL Neutrophils # (1.3-7.7) k/uL Carbon Dioxide (21.6-31.8) mmol/L Anion Gap (4.00-12.00) mmol/L Glucose (70-110) mg/dL POC Glucose (mg/dL) 244 H 143 H (75-99) mg/dL Calcium (8.7-10.3) mg/dL Assessment and Plan Assessment: * Unilateral rapid onset complete vision loss, left eye 10 days ago. Although the ESR and CRP are normal, but interactive media designer is concerned about temporal arteritis. * New onset scleral vascular congestion of the right eye, unclear etiology. * Hypertension * Diabetes * X tobacco use Plan: * Patient to be scheduled for left temporal artery biopsy. * Ophthalmology input appreciated. * Patient currently on Solu-Medrol 250 mg IV every 6 hours. * Repeat ESR 20 and CRP 0.7, both normal. * We will check NMO antibodies and MOG antibodies as recommended by interactive media designer. * Rheumatoid factor negative, MARY ANN pending. Myers virus PCR negative. * Hemoglobin A1c 7.4 * Lipid panel with cholesterol 106, LDL 59.4, HDL 30, triglycerides 83. * Stat MRI of the orbits was performed with and without contrast, which revealed no acute process. No acute CVA. Mild ethmoid and left sphenoid sinusitis. * Carotid Doppler showed no hemodynamically significant stenosis of proximal ICA bilaterally. Antegrade flow in both vertebral arteries. * 2-D echo revealed normal left-ventricular size. Borderline concentric LVH. EF is between 60-65%. * Dr. Rakesh Nelson will resume neurology service from the morning.
[2021-02-02 23:11] LABS: Glucose,Whole Blood 223 mg/dL (75-99)
[2021-02-03 01:26] LABS: Glucose,Whole Blood 191 mg/dL (75-99)
[2021-02-03 03:20] LABS: Glucose,Whole Blood 190 mg/dL (75-99)
[2021-02-03] MEDS: AMPICILLIN-SULBACTAM 3 GM in SODIUM CHLORIDE 0.9% 100 ML IVPB SCH ×3 (05:26→17:23)
[2021-02-03] MEDS: INSULIN REGULAR 100 UNIT in SODIUM CHLORIDE 0.9% 100 ML IV SCH ×2 (05:26→21:20)
[2021-02-03 05:34] LABS: Glucose,Whole Blood 270 mg/dL (75-99)
[2021-02-03 07:03] LABS: Glucose,Whole Blood 179 mg/dL (75-99)
[2021-02-03] MEDS: amLODIPine 5 MG TAB PO SCH (07:31)
[2021-02-03] MEDS: methylPREDNISolone SOD SUCC 1,000 MG in SODIUM CHLORIDE 0.9% 250 ML IVPB SCH (07:31)
[2021-02-03] MEDS: ASPIRIN 81 MG PO SCH (07:31)
[2021-02-03] MEDS: HEPARIN SODIUM,PORCINE/PF 5,000 UNIT/0.5 ML SYRINGE SQ SCH ×2 (07:31→20:59)
[2021-02-03] MEDS: CITALOPRAM HYDROBROMIDE 20 MG TAB PO SCH (07:32)
[2021-02-03] MEDS: metFORMIN 500 MG TAB PO SCH ×2 (07:32→20:59)
[2021-02-03] MEDS: MELOXICAM 7.5 MG TAB PO SCH (07:32)
[2021-02-03] MEDS: DULoxetine HCL 30 MG CAPSULE.DR PO SCH (07:32)
[2021-02-03] MEDS: ATORVASTATIN 10 MG TAB PO SCH (07:32)
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
[2021-02-03 09:00] LABS: Glucose,Whole Blood 256 mg/dL (75-99)
[2021-02-03 10:09] LABS: Basophils % (A) 0 %; Eosinophils % (A) 0 %; HCT 36.6 % (34.0-46.0); HGB 11.9 gm/dL (11.4-16.0); Lymphocytes # (A) 1.9 k/uL (1.0-4.8); Lymphocytes % (A) 12 %; MCH 31.9 pg (25.0-35.0); MCHC 32.6 g/dL (31.0-37.0); MCV 97.7 fL (80.0-100.0); Mean Platelet Volume 9.9; Monocytes # (A) 0.3 k/uL (0-1.0); Monocytes % (A) 2 %; Neutrophils # (A) 13.3 k/uL (1.3-7.7); Neutrophils % (A) 85 %; Platelet Count 243 k/uL (150-450); RBC 3.74 m/uL (3.80-5.40); RDW 12.8 % (11.5-15.5); WBC 15.6 k/uL (3.8-10.6)
[2021-02-03 10:26] LABS: African American GFR (CKD) >90 (>60 ml/min/1.73 sqM); Anion Gap 12 mmol/L; Blood Urea Nitrogen 14 mg/dL (7-17); Calcium 8.3 mg/dL (8.4-10.2); Carbon Dioxide 22 mmol/L (22-30); Chloride 104 mmol/L (98-107); Glucose 237 mg/dL (74-99); Non-African American GFR(CKD) >90 (>60 ml/min/1.73 sqM); Potassium 3.8 mmol/L (3.5-5.1); Sodium 138 mmol/L (137-145)
[2021-02-03 11:04] LABS: Glucose,Whole Blood 211 mg/dL (75-99)
--- NOTE | 2021-02-03 11:45 | P.PN ---
Subjective Progress Note Date: 02/03/21 I am seeing the patient for the first time for a neurological management during this admission. Please refer to Dr. Roblero's note for further details. Patient denies off any headache. She denies of any throbbing pain of left eye. She continues to have vision loss over the left eye. She denies of pain or straining moving her eyes. She stated about 10 days prior to presenting to the hospital she had sudden onset of left vision loss without any other neurological deficits. Then a few days later she notice aching pain of the left anterior temporal region and throbbing pain over the left eye. She denies history of stroke. She was not on any antiplatelets prior to this admission. Seems that the patient is going for left temporal artery biopsy tomorrow. Objective - Vital Signs Vital signs: Vital Signs Temp 97.9 F 02/03/21 04:51 Pulse 73 02/03/21 07:40 Resp 16 02/03/21 04:51 BP 144/81 02/03/21 07:40 Pulse Ox 95 02/03/21 04:51 Intake & Output 02/02/21 02/03/21 02/03/21 18:59 06:59 18:59 Intake Total 406.801 397.917 17.3 Balance 406.801 397.917 17.3 Intake: Intake, IV Titration 406.801 397.917 17.3 Amount Ampicillin-Sulbactam 3 gm 100 100 In Sodium Chloride 0.9% 100 ml @ 200 mls/hr IVPB Q6HR JEAN CARLOS Rx#:[id number] Insulin Regular 100 unit 56.801 57.917 17.3 In Sodium Chloride 0.9% 100 ml @ Titrate IV .Q0M JEAN CARLOS Rx#:[id number] Sodium Chloride 0.9% 1, 240 000 ml @ 20 mls/hr IV . Q24H JEAN CARLOS Rx#:[id number] methylPREDNISolone SOD 250 SUCC 1,000 mg In Sodium Chloride 0.9% 250 ml @ 250 mls/hr IVPB ONCE [facility] Rx#:[id number] Other: Voiding Method Toilet # Voids 3 - Exam GENERAL: The patient is lying in bed and is not in acute distress. NEUROLOGICAL: Higher mental function: The patient is awake, alert, oriented to self, place and time. Patient is following commands. No aphasia and no neglect. Cranial nerves: The pupils are round, equal and reactive to light and accommodation. Visual jesus is complete vision loss over the left eye while right eye is normal to confrontation throughout. Extraocular movement is intact no nystagmus is noted. Facial sensation is normal to touch throughout. The fa cial strength is normal throughout. Tongue is midline and moved [id number] without any difficulty. No dysarthria is noted. Shoulder shrug is normal bilaterally. Motor: Gait is deferred. The strength is 5 over 5 throughout. Normal tone and bulk. Cerebellum: Normal finger to nose bilaterally. Sensation: Sensation is normal to touch throughout. Plantars are downgoing bilaterally. WORK-UP: * ESR 21 (01/30/2021) and repeat is 20 (01/31/2021). CRP is 0.8 (01/30/21) and repeat is 0.7 (01/31/2021). * Rheumatoid factor negative. * Myers virus PCR negative. * Hemoglobin A1c 7.4 * Lipid panel with cholesterol 106, LDL 59.4, HDL 30, triglycerides 83. * Stat MRI of the orbits was performed with and without contrast, which revealed no acute process. No acute CVA. Mild ethmoid and left sphenoid sinusitis. * Carotid Doppler showed no hemodynamically significant stenosis of proximal ICA bilaterally. Antegrade flow in both vertebral arteries. * 2-D echo revealed normal left-ventricular size. Borderline concentric LVH. EF is between 60-65%. - Labs CBC & Chem 7: 02/03/21 05:42 02/03/21 05:42 Labs: Abnormal Lab Results - Last 24 Hours (Table) 02/02/21 02/02/21 02/02/21 Range/Units 07:17 11:11 12:48 WBC (3.8-10.6) k/uL RBC (3.80-5.40) m/uL Neutrophils # (1.3-7.7) k/uL Carbon Dioxide 17.1 L (21.6-31.8) mmol/L Anion Gap 16.90 H (4.00-12.00) mmol/L BUN/Creatinine Ratio 26.33 H (12.00-20.00) Ratio Glucose 231 H (70-110) mg/dL POC Glucose (mg/dL) 143 H 137 H (75-99) mg/dL Calcium 8.3 L (8.7-10.3) mg/dL 02/02/21 02/02/21 02/02/21 Range/Units 15:35 17:22 19:34 WBC (3.8-10.6) k/uL RBC (3.80-5.40) m/uL Neutrophils # (1.3-7.7) k/uL Carbon Dioxide (21.6-31.8) mmol/L Anion Gap (4.00-12.00) mmol/L BUN/Creatinine Ratio (12.00-20.00) Ratio Glucose (70-110) mg/dL POC Glucose (mg/dL) 313 H 289 H 290 H (75-99) mg/dL Calcium (8.7-10.3) mg/dL 02/02/21 02/02/21 02/03/21 Range/Units 20:57 23:09 01:24 WBC (3.8-10.6) k/uL RBC (3.80-5.40) m/uL Neutrophils # (1.3-7.7) k/uL Carbon Dioxide (21.6-31.8) mmol/L Anion Gap (4.00-12.00) mmol/L BUN/Creatinine Ratio (12.00-20.00) Ratio Glucose (70-110) mg/dL POC Glucose (mg/dL) 234 H 223 H 191 H (75-99) mg/dL Calcium (8.7-10.3) mg/dL 02/03/21 02/03/21 02/03/21 Range/Units 03:18 05:22 05:42 WBC 15.6 H (3.8-10.6) k/uL RBC 3.74 L (3.80-5.40) m/uL Neutrophils # 13.3 H (1.3-7.7) k/uL Carbon Dioxide (21.6-31.8) mmol/L Anion Gap (4.00-12.00) mmol/L BUN/Creatinine Ratio (12.00-20.00) Ratio Glucose (70-110) mg/dL POC Glucose (mg/dL) 190 H 270 H (75-99) mg/dL Calcium (8.7-10.3) mg/dL 02/03/21 02/03/21 02/03/21 Range/Units 05:42 07:01 08:58 WBC (3.8-10.6) k/uL RBC (3.80-5.40) m/uL Neutrophils # (1.3-7.7) k/uL Carbon Dioxide (21.6-31.8) mmol/L Anion Gap (4.00-12.00) mmol/L BUN/Creatinine Ratio (12.00-20.00) Ratio Glucose 237 H (70-110) mg/dL POC Glucose (mg/dL) 179 H 256 H (75-99) mg/dL Calcium 8.3 L (8.7-10.3) mg/dL Microbiology - Last 24 Hours (Table) 02/01/21 22:47 Blood Culture - Preliminary Blood No Growth after 24 hours 02/01/21 23:06 Blood Culture - Preliminary Blood No Growth after 24 hours 02/01/21 23:45 Urine Culture - Preliminary Urine,Voided Assessment and Plan Assessment: * Unilateral onset complete vision loss of the left eye (10 days ago prior to present to hospital). Although the ESR and CRP are normal, but offset lithographic press setter is concerned about temporal arteritis. I feel it seems suspi cious for stroke (initial imaging on 02/01/2021 was negative for CVA. Not sure if was too small to pick-up). * New onset scleral vascular congestion of the right eye, unclear etiology. * Hypertension * Diabetes * X tobacco use Plan: * Patient to be scheduled for left temporal artery biopsy. * I ordered CTA head and neck. * Will get repeat MRI Brain w/o. * Patient is currently on ASA 81mg and Lipitor 10mg qhs. * Ophthalmology input appreciated. * Patient currently on Solu-Medrol 250 mg IV every 6 hours. * pending NMO antibodies and MOG antibodies as recommended by offset lithographic press setter. * Pending MARY ANN pending. * Will defer the rest of medical management to the primary team. * For DVT prophylaxis: On subq heparin 5000U every 12 hours. The plan is discussed with the patient and her nurse. Rakesh Nelson MD Neuro-Hospitalist. Time with Patient: Less than 30
--- NOTE | 2021-02-03 12:20 | P.PN ---
Subjective Progress Note Date: 02/03/21 Patient is seen and examined sitting up in bed. She has been seen by ENT, neurology, and ophthalmology. Also suspect possible temporal arteritis. Patient is currently on IV steroids. States she has had improvement in her headache and eye pressure however states that she still has no vision in the left eye. States it is black. Vision is normal in her right eye. Objective - Vital Signs Vital signs: Vital Signs Temp 97.8 F 02/03/21 11:29 Pulse 90 02/03/21 11:29 Resp 16 02/03/21 11:29 BP 150/90 02/03/21 11:29 Pulse Ox 96 02/03/21 11:29 Intake & Output 02/02/21 02/03/21 02/03/21 18:59 06:59 18:59 Intake Total 406.801 397.917 17.3 Balance 406.801 397.917 17.3 Intake: Intake, IV Titration 406.801 397.917 17.3 Amount Ampicillin-Sulbactam 3 gm 100 100 In Sodium Chloride 0.9% 100 ml @ 200 mls/hr IVPB Q6HR JE[facility] CARLOS Rx#:[id number] Insulin Regular 100 unit 56.801 57.917 17.3 In Sodium Chloride 0.9% 100 ml @ Titrate IV .Q0M JEAN CARLOS Rx#:[id number] Sodium Chloride 0.9% 1, 240 000 ml @ 20 mls/hr IV . Q24H JEAN CARLOS Rx#:[id number] methylPREDNISolone SOD 250 SUCC 1,000 mg In Sodium Chloride 0.9% 250 ml @ 250 mls/hr IVPB ONCE [facility] Rx#:[id number] Other: Voiding Method Toilet # Voids 3 - Exam General appearance: The patient is alert, oriented, in no acute distress. HET: Head is normocephalic and atraumatic. Pupils are equal and reactive. Neck: Supple without lymphadenopathy. Trachea midline. Extremities: Normal skin color and turgor. No cyanosis, rash, ulceration, clubbing, or edema. Radial and pedal pulses are 2/4 bilaterally. Neurological: No focal deficits. Strength and sensation are grossly intact. - Labs CBC & Chem 7: 02/03/21 05:42 02/03/21 05:42 Labs: Abnormal Lab Results - Last 24 Hours (Table) 02/02/21 02/02/2102/02/21 Range/Units 07:17 12:48 15:35 WBC (3.8-10.6) k/uL RBC (3.80-5.40) m/uL Neutrophils # (1.3-7.7) k/uL Carbon Dioxide 17.1 L (21.6-31.8) mmol/L Anion Gap 16.90 H (4.00-12.00) mmol/L BUN/Creatinine Ratio 26.33 H (12.00-20.00) Ratio Glucose 231 H (70-110) mg/dL POC Glucose (mg/dL) 137 H 313 H (75-99) mg/dL Calcium 8.3 L (8.7-10.3) mg/dL 02/02/21 02/02/21 02/02/21 Range/Units 17:22 19:34 20:57 WBC (3.8-10.6) k/uL RBC (3.80-5.40) m/uL Neutrophils # (1.3-7.7) k/uL Carbon Dioxide (21.6-31.8) mmol/L Anion Gap (4.00-12.00) mmol/L BUN/Creatinine Ratio (12.00-20.00) Ratio Glucose (70-110) mg/dL POC Glucose (mg/dL) 289 H 290 H 234 H (75-99) mg/dL Calcium (8.7-10.3) mg/dL 02/02/21 02/03/21 02/03/21 Range/Units 23:09 01:24 03:18 WBC (3.8-10.6) k/uL RBC (3.80-5.40) m/uL Neutrophils # (1.3-7.7) k/uL Carbon Dioxide (21.6-31.8) mmol/L Anion Gap (4.00-12.00) mmol/L BUN/Creatinine Ratio (12.00-20.00) Ratio Glucose (70-110) mg/dL POC Glucose (mg/dL) 223 H 191 H 190 H (75-99) mg/dL Calcium (8.7-10.3) mg/dL 02/03/21 02/03/21 02/03/21 Range/Units 05:22 05:42 05:42 WBC 15.6 H (3.8-10.6) k/uL RBC 3.74 L (3.80-5.40) m/uL Neutrophils # 13.3 H (1.3-7.7) k/uL Carbon Dioxide (21.6-31.8) mmol/L Anion Gap (4.00-12.00) mmol/L BUN/Creatinine Ratio (12.00-20.00) Ratio Glucose 237 H (70-110) mg/dL POC Glucose (mg/dL) 270 H (75-99) mg/dL Calcium 8.3 L (8.7-10.3) mg/dL 02/03/21 02/03/21 02/03/21 Range/Units 07:01 08:58 10:59 WBC (3.8-10.6) k/uL RBC (3.80-5.40) m/uL Neutrophils # (1.3-7.7) k/uL Carbon Dioxide (21.6-31.8) mmol/L Anion Gap (4.00-12.00) mmol/L BUN/Creatinine Ratio (12.00-20.00) Ratio Glucose (70-110) mg/dL POC Glucose (mg/dL) 179 H 256 H 211 H (75-99) mg/dL Calcium (8.7-10.3) mg/dL Microbiology - Last 24 Hours (Table) 02/01/21 22:47 Blood Culture - Preliminary Blood No Growth after 24 hours 02/01/21 23:06 Blood Culture - Preliminary Blood No Growth after 24 hours 02/01/21 23:45 Urine Culture - Preliminary Urine,Voided Assessment and Plan Assessment: 1. Acute left vision loss 2. Rule out temporal arteritis, normal inflammatory markers Plan: 1. Continue current medical management 2. Plan is for left temporal artery biopsy tomorrow The impression and plan of care has been dictated as directed. Dr. Vizcaino I performed a history and examination of this patient, discussed the same with the dictator. I agree with the dictator's note ,documented as a scribe. Any additional findings or plans will be noted.
--- NOTE | 2021-02-03 12:53 | CT ---
EXAMINATION TYPE: CT angio head neck DATE OF EXAM: 02/03/2021 HISTORY: Left vision loss. Rule out dissection, stroke COMPARISON: None. CT DLP: 1597 mGycm. Automated Exposure Control for Dose Reduction was Utilized. TECHNIQUE: CTA scan of the neck is performed without and with IV Contrast, patient injected with 65 mL of Isovue 370, axial images are obtained, coronal and sagittal reformatted images are reviewed. 3D reconstructed images are created on an independent workstation and reviewed. FINDINGS: Carotid/Vascular Structures: Normal 3 vessel origins from the aortic arch. Mild plaque in the arch wi thout significant stenosis. Normal origin right common carotid artery from right brachiocephalic evelia ry. Tortuous course of the common carotid arteries bilaterally and no significant plaque or stenosis in the common or internal carotid arteries bilaterally including at the level of the bilateral caroti d bulbs except Mild calcified plaque distal supraclinoid segments. No linear hypodensity to suggest carotid dissection. Codominant vertebral arteries patent to basilar junction. Patent bilateral posterior communicating ar teries. No significant plaque or stenosis in the posterior circulation. Patent anterior communicating artery. No significant plaque or stenosis in the anterior circulation. Other: Noncontrast CT shows no acute intracranial hemorrhage or midline shift. Mild diffuse cerebral atrophy and chronic small vessel ischemic change is present. The paranasal sinuses are clear. Mild emphysematous change of visualized upper lungs. Spine is straightened with moderate disc space narrowing and spurring C5-C6 and C6-C7 levels. Underly ing S-shaped scoliosis in the cervical thoracic spine. IMPRESSION: No significant plaque or stenosis in the common or internal carotid arteries. Unremarkab [place] of Mae. No carotid or vertebral artery dissection. NASCET criteria was used in interpretation of this exam?
--- NOTE | 2021-02-03 13:56 | MR ---
EXAMINATION TYPE: MR brain wo con DATE OF EXAM: 02/03/2021 COMPARISON: CT brain from 4 days ago HISTORY: Left-sided vision loss acute onset. Rule out stroke. TECHNIQUE: Multiplanar, multisequence imaging of the brain and brainstem is performed without IV cont rast. FINDINGS: Diffusion weighted images demonstrate no evidence of a recent infarct or other diffusion abnormality. There is mild ventricular and sulcal prominence. Some scattered small T2 hyperintense lesions through out the white matter bilaterally. Approximately 10-15 scattered lesions. Lesions are nonspecific in a ppearance and distribution. Midline structures demonstrate normal morphology. The craniocervical junction appears within normal limits. Normal vascular flow voids are present. The visualized sinuses are clear and the globes are i ntact. Increased fluid signal right mastoid air cells redemonstrated. Fluid nearly completely fills l eft sphenoid sinus on current study. Mild mucosal thickening involving ethmoid sinuses bilaterally. G lobes are intact bilaterally IMPRESSION: No MRI evidence for recent infarct. Mild diffuse age-related cerebral atrophy and chronic small vessel ischemic change. Worsening paranasal sinus disease. Possible right-sided mastoiditis, c orrelate clinically.
[2021-02-03 13:59] LABS: Glucose,Whole Blood 378 mg/dL (75-99)
--- NOTE | 2021-02-03 15:15 | PN ---
PROGRESS NOTE DATE OF SERVICE: 02/03/2021 This 60-year-old woman who was admitted with significant visual loss in the left eye is being closely monitored. The patient was on high-dose IV steroids. Multiple consultants, including Neurology, Ophthalmology and ENT, are following the patient closely. Patient is also on empiric antibiotics. CT angiography was done today which showed no significant plaques or stenosis of the common carotid or internal carotid arteries and no other vascular abnormalities noted. A brain MRI was also done which showed no MRI evidence of any recent infarct. Mild diffuse age-related cerebral atrophy and chronic small vessel ischemia were noted. Worsening paranasal sinus disease and possible right-sided mastoiditis were also noted. Clinical correlation was also recommended. No chest pain. No palpitations. No fever. Multiple consultants are following the patient closely. PHYSICAL EXAMINATION: Alert and oriented x3. Pulse 90, blood pressure 151/90, respirations 16, temperature 97.3, pulse ox 96% on room air. CARDIOVASCULAR: S1, S2 muffled. RESPIRATION: Breath sounds diminished at the bases. A few scattered rhonchi. ABDOMEN: Soft. NERVOUS SYSTEM: Significant vision loss on the left side. No other neurological abnormalities noted. LABS: Labs at this time show WBC 15.7, glucose 378. ASSESSMENT: 1. Left eye vision loss, possibly optic neuritis, on high-dose IV steroids empirically. 2. Increased white count. 3. Rule out giant cell arteritis. 4. History of asthma. 5. Diabetes mellitus, type 2, uncontrolled, with hyperglycemia, possibly steroid- induced, on IV insulin drip. 6. History of degenerative joint disease. 7. History of sphenoid sinusitis. 8. History of bilateral shoulder dislocation. 9. History of MRSA. 10.History of cholecystectomy. 11.History of hernia surgery. 12.History of anxiety. 13.Remote history of nicotine dependence. 14.FULL CODE. RECOMMENDATIONS AND DISCUSSION: I recommend to continue current medications, continue with the monitoring, symptomatic treatment. Closely follow with multiple consultants. Prognosis guarded because of multiple complex medical issues. Dr. Armenta is planning temporal artery biopsy tomorrow. Will continue to monitor. Further recommendations to follow. MMODL / IJN: [id number] /
[2021-02-03 15:28] LABS: Glucose,Whole Blood 334 mg/dL (75-99)
[2021-02-03 16:55] LABS: Glucose,Whole Blood 222 mg/dL (75-99)
[2021-02-03 19:01] LABS: Glucose,Whole Blood 311 mg/dL (75-99)
[2021-02-03] MEDS: GABAPENTIN 300 MG CAP PO SCH (20:59)
[2021-02-03] MEDS: FLUTICASONE 50MCG/SPRAY NASAL 16GM EA NOSTRIL SCH (21:00)
[2021-02-03] MEDS: ALPRAZolam 0.25 MG TAB PO PRN (21:04)
[2021-02-03] MEDS: SODIUM CHLORIDE 0.9% 1,000 ML IV SCH (21:04)
--- NOTE | 2021-02-03 23:08 | P.CONS ---
History of Present Illness - Reason for Consult Consult date: 02/02/21 sinusitis Requesting physician: Laura Hall - Chief Complaint left sided vision loss x 7 days - History of Present Illness History of present illness : Patient is 60-year-old female presenting to the ER 2 days ago for evaluation of unilateral left-sided vision loss that the pain has been going on for about 7-10 days. The patient has been evaluated in the outpatient setting by her billing rep with concern for possible temporal arteritis the patient has been referred to the ER for further evaluation on presentation to the hospital patient was afebrile and no fever has been recorded subsequently patient did have elevated white count elevation of 13 who is up to 14.1 today sed rate was normal CRP 0.7 MARY ANN screen was positive chau PCR was negative UA was not done patient did have a orbital face and neck MRI which shows mild cerebral atrophy no acute intracranial abnormality mild ethmoid and left-sided sphenoid sinusitis that has prompted this infectious disease consultation and the patient is started on Unasyn by the admitting team patient apparently has been following with ENT in the outpatient setting and this patient has been diagnosed with left serous otitis media treated with multiple courses of antibiotic and recently did have a insertion of a left tympanoplasty with ventilatory tube placement patient denies having any drainage from the left ear denies having any pain to the maxillary or ethmoid sinus area no nasal congestion or sore throat no abdominal pain or diarrhea Review of system: CONSTITUTIONAL: Positive for weakness denies fever. EYES: As per history of present illness. ENT as per history of present illness. RESPIRATORY: No complaint. CARDIOVASCULAR: No complaint. GENITOURINARY: No complaint. GASTROINTESTINAL: No complaint. MUSCULOSKELETAL: No complaint. INTEGUMENTARY: No complaint. PSYCHOLOGIC: No complaint. ENDOCRINE: No complaint. NEUROLOGIC: As per history of present illness Past medical history : Reviewed, documented below Past surgical history : Reviewed, documented below Social history: Reviewed, documented below Medications: Reviewed, as documented below EXAMINATION: Vital sigans= Reviewed and documented below GENERAL DESCRIPTION: Middle-aged female lying in bed, no distress. No tachypnea or accessory muscle of respiration use. HEENT: Shows Pallor , no scleral icterus. Oral mucous membrane is dry. NECK: Trachea central, no thyromegaly. LUNGS: Unlabored breathing. Clear to auscultation anteriorly. No wheeze or crackle. HEART: S1, S2, regular rate and rhythm. ABDOMEN: Soft, no tenderness , guarding or rigidity EXTREMITIES: No edema of feet. SKIN: No rash, no masses palpable. NEUROLOGICAL: The patient is awake, alert, oriented x3, mood and affect normal. LABS AND RADIOLOGY: Reviewed results see below Assessment : 1-patient presented to hospital with left unilateral visual loss and concern for possible temporal arteritis for which vascular surgery has been consulted for possible biopsy in this patient who did have a normal sed rate and CRP white count was mildly elevated and this patient recently did have a left tympanoplasty for chronic serous otitis media with evidence of sinusitis seen on the MRI could be incidental finding clinical out any specific infectious etiolog y responsible for her current problems Plan: 1-May continue the patient on Unasyn while waiting for the work-up to be finalized 2-await further work-up per vascular and neurology team We will follow on clinical condition and cultures to further adjust medication if needed Thank you for this consultation we will follow the patient along with you Past Medical History Past Medical History: Asthma, Diabetes Mellitus, Osteoarthritis (OA) Additional Past Medical History / Comment(s): DOM SHOULER DISLOCATION (HAS DIFFICULTY LIFTING OVER HER HEAD), TYPE 2 DIABETES. . History of Any Multi-Drug Resistant Organisms: MRSA Year Discovered:: 06/25/15 MDRO Source:: URINE Past Surgical History: Cholecystectomy, Hernia Repair, Tonsillectomy Additional Past Surgical History / Comment(s): HERNIA REPAIR BABY, INTESTINAL BYPASS WITH GALL BLADDER DUE TO BLOCKAGE AT BILE DUCT(2005), RECONSTRUCTIVE SURGERY RIGHT FOOT X2, RIGHT OVARY AND TUBE REMOVED, LEFT PARTIAL OVARY REMOVED .06-06-15 TOTAL RT KNEE Past Anesthesia/Blood Transfusion Reactions: No Reported Reaction Past Psychological History: Anxiety Smoking Status: Former smoker Past Alcohol Use History: Rare Additional Past Alcohol Use History / Comment(s): QUIT SMOKING 4-5 YEARS AGO. SMOKED OVER 10 YEARS. SMOKED 1/2 PPD OR LESS. Past Drug Use History: None Reported - Past Family History Father Family Medical History: Cancer Additional Family Medical History / Comment(s): BLADDER CANCER. Mother Family Medical History: Hyperlipidemia, Hypertension Medications and Allergies Home Medications Medication Instructions Recorded Confirmed Type Gabapentin [Neurontin] 900 mg PO HS 05/27/15 01/31/21 History Citalopram Hydrobromide [CeleXA] 40 mg PO DAILY 11/02/16 01/31/21 History metFORMIN HCL [Glucophage] 1,000 mg PO BID 11/02/16 01/31/21 History Atorvastatin [Lipitor] 10 mg PO DAILY 01/30/21 01/31/21 History Celecoxib [CeleBREX] 200 mg PO BID 01/30/21 01/31/21 History DULoxetine HCL [Cymbalta] 30 mg PO DAILY 01/30/21 01/31/21 History Fluticasone Nasal Tower [Flonase 2 spray EA NOSTRIL HS 01/30/21 01/31/21 History Nasal Tower] Insulin Glargine [Lantus Vial] 20 - 22 units SQ HS 01/30/21 01/31/21 History Insulin Regular [HumuLIN R] See Protocol SQ AC-TID PRN 01/30/21 01/31/21 History Aspirin 81 mg PO DAILY #30 tab 01/31/21 01/31/21 Rx Allergies Allergy/AdvReac Type Severity Reaction Status Date / Time alendronate sodium Allergy Unknown JOINT PAIN Verified 01/31/21 17:54 [From Fosamax] amitriptyline HCl Allergy Unknown HEART Verified 01/31/21 17:54 [From Elavil] PALPITATIONS tetracycline Allergy Unknown Rash/Hives, Verified 01/31/21 17:54 RED CHEEKS adhesive tape AdvReac Severe MARIE Verified 01/31/21 17:54 SKIN, SORES Physical Exam Vitals: Vital Signs Temp Pulse Pulse Resp BP BP Pulse Ox 02/02/21 05:00 98.3 F 78 20 143/84 96 02/01/21 19:30 98.4 F 96 20 155/90 95 02/01/21 15:34 72 174/85 02/01/21 15:19 70 176/91 02/01/21 15:05 69 159/65 02/01/21 14:50 71 166/74 02/01/21 14:35 79 168/74 02/01/21 14:20 61 153/63 02/01/21 14:04 97.8 F 67 154/76 Intake and Output 02/01/21 02/02/21 02/02/21 22:59 06:59 14:59 Intake Total 247.533 116.592 32.917 Balance 247.533 116.592 32.917 Intake: Intake, IV Titration 47.533 16.592 32.917 Amount Insulin Regular 100 unit 47.533 16.592 32.917 In Sodium Chloride 0.9% 100 ml @ Titrate IV .Q0M [facility] Rx#:[id number] Oral 200 100 Other: # Voids 2 1 Results CBC & Chem 7: 02/03/21 05:42 02/03/21 05:42 Labs: Abnormal Lab Results - Last 24 Hours (Table) 02/01/21 02/01/21 02/01/21 Range/Units 17:04 20:31 21:31 WBC (3.8-10.6) k/uL Neutrophils # (1.3-7.7) k/uL Carbon Dioxide (21.6-31.8) mmol/L Anion Gap (4.00-12.00) mmol/L BUN/Creatinine Ratio (12.00-20.00) Ratio Glucose (70-110) mg/dL POC Glucose (mg/dL) 317 H 389 H 346 H (75-99) mg/dL Calcium (8.7-10.3) mg/dL 02/01/21 02/01/21 02/02/21 Range/Units 22:07 22:46 00:46 WBC (3.8-10.6) k/uL Neutrophils # (1.3-7.7) k/uL Carbon Dioxide (21.6-31.8) mmol/L Anion Gap (4.00-12.00) mmol/L BUN/Creatinine Ratio (12.00-20.00) Ratio Glucose (70-110) mg/dL POC Glucose (mg/dL) 301 H 183 H 153 H (75-99) mg/dL Calcium (8.7-10.3) mg/dL 02/02/21 02/02/21 02/02/21 Range/Units 02:51 05:02 07:16 WBC (3.8-10.6) k/uL Neutrophils # (1.3-7.7) k/uL Carbon Dioxide (21.6-31.8) mmol/L Anion Gap (4.00-12.00) mmol/L BUN/Creatinine Ratio (12.00-20.00) Ratio Glucose (70-110) mg/dL POC Glucose (mg/dL) 174 H 167 H 227 H (75-99) mg/dL Calcium (8.7-10.3) mg/dL 02/02/21 02/02/21 02/02/21 Range/Units 07:17 07:17 09:25 WBC 14.1 H (3.8-10.6) k/uL Neutrophils # 11.8 H (1.3-7.7) k/uL Carbon Dioxide 17.1 L (21.6-31.8) mmol/L Anion Gap 16.90 H (4.00-12.00) mmol/L BUN/Creatinine Ratio 26.33 H (12.00-20.00) Ratio Glucose 231 H (70-110) mg/dL POC Glucose (mg/dL) 244 H (75-99) mg/dL Calcium 8.3 L (8.7-10.3) mg/dL 02/02/21 02/02/21 Range/Units 11:11 12:48 WBC (3.8-10.6) k/uL Neutrophils # (1.3-7.7) k/uL Carbon Dioxide (21.6-31.8) mmol/L Anion Gap (4.00-12.00) mmol/L BUN/Creatinine Ratio (12.00-20.00) Ratio Glucose (70-110) mg/dL POC Glucose (mg/dL) 143 H 137 H (75-99) mg/dL Calcium (8.7-10.3) mg/dL Microbiology - Last 24 Hours (Table) 02/01/21 23:45 Urine Culture - Preliminary Urine,Voided
[2021-02-03 23:49] LABS: Glucose,Whole Blood 169 mg/dL (75-99)
[2021-02-04] MEDS: AMPICILLIN-SULBACTAM 3 GM in SODIUM CHLORIDE 0.9% 100 ML IVPB SCH ×3 (00:02→12:48)
[2021-02-04 02:13] LABS: Glucose,Whole Blood 167 mg/dL (75-99)
[2021-02-04 05:25] LABS: Glucose,Whole Blood 151 mg/dL (75-99)
[2021-02-04 05:57] LABS: Basophils % (A) 0 %; Eosinophils % (A) 0 %; HCT 36.9 % (34.0-46.0); HGB 12.1 gm/dL (11.4-16.0); Lymphocytes # (A) 2.4 k/uL (1.0-4.8); Lymphocytes % (A) 17 %; MCH 31.7 pg (25.0-35.0); MCHC 32.8 g/dL (31.0-37.0); MCV 96.7 fL (80.0-100.0); Mean Platelet Volume 9.1; Monocytes # (A) 0.6 k/uL (0-1.0); Monocytes % (A) 4 %; Neutrophils # (A) 10.6 k/uL (1.3-7.7); Neutrophils % (A) 77 %; Platelet Count 244 k/uL (150-450); RBC 3.82 m/uL (3.80-5.40); RDW 12.8 % (11.5-15.5); WBC 13.8 k/uL (3.8-10.6)
[2021-02-04 07:02] LABS: Glucose,Whole Blood 154 mg/dL (75-99)
[2021-02-04] MEDS: INSULIN REGULAR 100 UNIT in SODIUM CHLORIDE 0.9% 100 ML IV SCH (07:55)
[2021-02-04] MEDS ORDERED: IV FLUID CONTINUATION 1,000 ML IV ONE (07:55)
[2021-02-04] MEDS ORDERED: ONDANSETRON 4 MG/2 ML VIAL IVP ONE (08:00)
[2021-02-04] MEDS ORDERED: FAMOTIDINE 20 MG/2 ML VIAL IVP ONE (08:00)
[2021-02-04 08:01] LABS: Glucose,Whole Blood 142 mg/dL (75-99)
[2021-02-04] MEDS ORDERED: ONDANSETRON 4 MG/2 ML VIAL ONE (08:02)
[2021-02-04] MEDS ORDERED: SUCCINYLCHOLINE CHLORIDE 100 MG/5 ML SYR IV ONE (08:16)
[2021-02-04] MEDS ORDERED: MIDAZOLAM 2 MG/2 ML VIAL ONE (08:16)
[2021-02-04] MEDS ORDERED: LIDOCAINE 1% INJ 10MG/ML (20 ML MDV) ONE (08:16)
[2021-02-04] MEDS ORDERED: PHENYLEPHRINE-0.9% NACL SYG 1,000 MCG/10 ML SYRINGE ONE (08:16)
[2021-02-04] MEDS ORDERED: PROPOFOL 10 MG/ML 20 ML VIAL IV ONE (08:16)
[2021-02-04] MEDS ORDERED: fentaNYL (PF) 50 MCG/ML 2 ML AMP ONE (08:16)
[2021-02-04] MEDS ORDERED: LIDOCAINE 1% INJ 10MG/ML (20 ML MDV) SQ ONE ×2 (08:43→09:00)
--- NOTE | 2021-02-04 09:25 | P.OP ---
Date of Procedure: 02/04/21 Preoperative Diagnosis: acute left eye vision loss, possible temporal arteritis Postoperative Diagnosis: same Procedure(s) Performed: left temporal artery biopsy Anesthesia: BRITA Surgeon: Darvin Vizcaino Estimated Blood Loss (ml): 2 Pathology: other (left temporal artery) Condition: stable Disposition: PACU Indications for Procedure: 60 year old female who presented to the hospital secondary to acute vision loss on the left. She was worked up by neurology, ENT, and opthalmology and ruled out any evidence of stroke but are concerned for vasculitis and temporal arteritis. She presents today for biopsy of the left temporal artery. Description of Procedure: After written and informed consent was obtained and all risks, benefits, and complications were discussed the patient was brought to the operative suite and laid in a supine position. The area of the left forehead was prepped and draped in usual fashion. The temporal artery was palpated and incision was created over the vessel at the hairline with a 15 blade scalpel. Dissection was carried down to the temporal artery through the fascia and circuferential control was obtained of a 3-4 cm portion of the vessel. The vessel was then ligated and sent of for pathology. The area was irrigated and suctioned dry. The incision was closed in a two layer fashion. The patient tolerated the procedure well and was sent to the PACU for recovery.
[2021-02-04] MEDS ORDERED: HYDROmorphone 0.5 MG/0.5 ML SYRINGE IVP ONE (09:41)
[2021-02-04 09:50] LABS: Glucose,Whole Blood 140 mg/dL (75-99)
[2021-02-04] MEDS ORDERED: SODIUM CHLORIDE 0.9% 1,000 ML IV ONE (09:55)
[2021-02-04 10:00] LABS: African American GFR (CKD) 114.8 (60.0-200.0); Anion Gap 16.4 mmol/L (4.00-12.00); BUN/Creat Ratio 21.67 Ratio (12.00-20.00); Calcium 8.2 mg/dL (8.7-10.3); Carbon Dioxide 22.6 mmol/L (21.6-31.8); Non-African American GFR(CKD) 99.1 (60.0-200.0); Potassium 3.4 mmol/L (3.5-5.5)
--- NOTE | 2021-02-04 10:46 | PN ---
PROGRESS NOTE DATE OF SERVICE: 02/03/2021 REASON FOR FOLLOWUP: Sinusitis. INTERVAL HISTORY: The patient is afebrile. Still complaining of left-sided vision loss. The patient still has some pain to the left side of the head. No nausea, no vomiting. No chest pain, shortness of breath or cough. No abdominal pain or any diarrhea. PHYSICAL EXAMINATION: Her blood pressure 163/84 with a pulse of 83, temperature 97.9. She is 95% on room air. General description is a middle-aged female up in the chair in no distress. Respiratory system: Unlabored breathing, clear to auscultation anteriorly. Heart S1, S2. Regular rate and rhythm. Abdomen soft, no tenderness. Extremities no edema of the feet. LABS: Hemoglobin 11.9, white count 15.6. MRI of the brain was negative for any stroke. It did show evidence of possible right- sided mastoiditis and sinusitis. DIAGNOSTIC IMPRESSION AND PLAN: Patient admitted to hospital with predominantly left-sided vision loss in this patient who did have a history of recurrent serous otitis media, status post tympanoplasty on the left side, now with the abnormality seen on the MRI. The patient is empirically covered with Unasyn. That will be continued for now while monitoring clinical course closely. MMODL / IJN: [id number] /
[2021-02-04 11:10] LABS: Glucose,Whole Blood 173 mg/dL (75-99)
[2021-02-04] MEDS ORDERED: LACTATED RINGERS 1,000 ML IV SCH (11:20)
[2021-02-04] MEDS ORDERED: INSULIN DETEMIR (LEVEMIR) 100 UNIT/ML SYR SQ ONE (11:24)
[2021-02-04] MEDS: ASPIRIN 81 MG PO SCH (11:32)
[2021-02-04] MEDS: ATORVASTATIN 10 MG TAB PO SCH (11:33)
[2021-02-04] MEDS: metFORMIN 500 MG TAB PO SCH (11:33)
[2021-02-04] MEDS: HEPARIN SODIUM,PORCINE/PF 5,000 UNIT/0.5 ML SYRINGE SQ SCH (11:33)
[2021-02-04] MEDS: DULoxetine HCL 30 MG CAPSULE.DR PO SCH (11:33)
[2021-02-04] MEDS: CITALOPRAM HYDROBROMIDE 20 MG TAB PO SCH (11:33)
[2021-02-04] MEDS: amLODIPine 5 MG TAB PO SCH (11:33)
[2021-02-04] MEDS: methylPREDNISolone SOD SUCC 1,000 MG in SODIUM CHLORIDE 0.9% 250 ML IVPB SCH (11:33)
[2021-02-04] MEDS: MELOXICAM 7.5 MG TAB PO SCH (11:36)
[2021-02-04 12:25] VITALS: BP 170/93; PULSE 70; RESP 14; TEMP 98.1
[2021-02-04 13:08] LABS: Glucose,Whole Blood 187 mg/dL (75-99)
--- NOTE | 2021-02-04 14:47 | P.PN ---
Subjective Progress Note Date: 02/04/21 Patient seen at bedside and she stated that she denies any headaches or any vision pain with movement. She continues to have visual loss over the left eye. She had a left temporal artery biopsy. Objective - Vital Signs Vital signs: Vital Signs Temp 98.1 F 02/04/21 12:22 Pulse 70 02/04/21 12:22 Resp 14 02/04/21 12:22 BP 170/93 02/04/21 12:22 Pulse Ox 94 L 02/04/21 12:22 Intake & Output 02/03/21 02/04/21 02/04/21 18:59 06:59 18:59 Intake Total 764.166 566.377 1674.134 Output Total 1 Balance 764.166 434.179 5569.134 Intake: IV 1200 Intake, IV Titration 764.166 224.201 12.134 Amount Ampicillin-Sulbactam 3 gm 200 In Sodium Chloride 0.9% 100 ml @ 200 mls/hr IVPB Q6HR [facility] Rx#:[id number] Insulin Regular 100 unit 74.166 64.201 12.134 In Sodium Chloride 0.9% 100 ml @ Titrate IV .Q0M [facility] Rx#:[id number] Sodium Chloride 0.9% 1, 240 160 000 ml @ 20 mls/hr IV . Q24H [facility] Rx#:[id number] methylPREDNISolone SOD 250 SUCC 1,000 mg In Sodium Chloride 0.9% 250 ml @ 250 mls/hr IVPB DAILY [facility] Rx#:[id number] Output: Estimated Blood Loss 1 Other: Voiding Method Toilet # Bowel Movements 1 - Exam GENERAL: The patient is lying in bed and is not in acute distress. NEUROLOGICAL: Higher mental function: The patient is awake, alert, oriented to self, place and time. Patient is following commands. No aphasia and no neglect. Cranial nerves: The pupils are round, equal and reactive to light and accomm odation. Visual jesus is complete vision loss over the left eye while right eye is normal to confrontation throughout. Extraocular movement is intact no nystagmus is noted. Facial sensation is normal to touch throughout. The facial strength is normal throughout. Tongue is midline and moved [id number] without any difficulty. No dysarthria is noted. Shoulder shrug is normal bilaterally. Motor: Gait is deferred. The strength is 5 over 5 throughout. Normal tone and bulk. Cerebellum: Normal finger to nose bilaterally. Sensation: Sensation is normal to touch throughout. Plantars are downgoing bilaterally. WORK-UP: * ESR 21 (01/30/2021) and repeat is 20 (01/31/2021). CRP is 0.8 (01/30/21) and repeat is 0.7 (01/31/2021). * Rheumatoid factor negative. * MARY ANN is positive. * Myers virus PCR negative. * Hemoglobin A1c 7.4 * Vitamin B6: 8 * Lipid panel with cholesterol 106, LDL 59.4, HDL 30, triglycerides 83. * MRI of the orbits was performed with and without contrast, which revealed no acute process. No acute CVA. Mild ethmoid and left sphenoid sinusitis. * Carotid Doppler showed no hemodynamically significant stenosis of proximal ICA bilaterally. Antegrade flow in both vertebral arteries. * Repeat MR the brain is reported as no MRI evidence for recent infarct. Mild diffuse age-related cerebral atrophy and chronic small vessel ischemic change. Worsening got paranasal sinus disease. Possible right-sided mastoiditis, correlate clinically. I reviewed the MRI of the brain and I do not see any evidence of acute or subacute ischemia. * CT angiography of the head and neck was reported as no significant plaque or stenosis in the common or internal carotid arteries. Unremarkable [place] of [place]. No carotid or vertebral artery dissection. * 2-D echo revealed normal left-ventricular size. Borderline concentric LVH. EF is between 60-65%. - Labs CBC & Chem 7: 02/04/21 05:01 02/04/21 05:01 Labs: Abnormal Lab Results - Last 24 Hours (Table) 01/31/21 02/03/21 02/03/21 Range/Units 18:51 15:25 16:52 WBC (3.8-10.6) k/uL Neutrophils # (1.3-7.7) k/uL Potassium (3.5-5.5) mmol/L Anion Gap (4.00-12.00) mmol/L BUN/Creatinine Ratio (12.00-20.00) Ratio Glucose (70-110) mg/dL POC Glucose (mg/dL) 334 H 222 H (75-99) mg/dL Calcium (8.7-10.3) mg/dL MARY ANN Screen POSITIVE A (NEGATIVE) 1102/03/21 02/04/21 Range/Units 19:00 23:47 02:12 WBC (3.8-10.6) k/uL Neutrophils # (1.3-7.7) k/uL Potassium (3.5-5.5) mmol/L Anion Gap (4.00-12.00) mmol/L BUN/Creatinine Ratio (12.00-20.00) Ratio Glucose (70-110) mg/dL POC Glucose (mg/dL) 311 H 169 H 167 H (75-99) mg/dL Calcium (8.7-10.3) mg/dL MARY ANN Screen (NEGATIVE) 02/04/21 02/04/21 02/04/21 Range/Units 05:01 05:01 05:23 WBC 13.8 H (3.8-10.6) k/uL Neutrophils # 10.6 H (1.3-7.7) k/uL Potassium 3.4 L (3.5-5.5) mmol/L Anion Gap 16.40 H (4.00-12.00) mmol/L BUN/Creatinine Ratio 21.67 H (12.00-20.00) Ratio Glucose 151 H (70-110) mg/dL POC Glucose (mg/dL) 151 H (75-99) mg/dL Calcium 8.2 L (8.7-10.3) mg/dL MARY ANN Screen (NEGATIVE) 02/04/21 02/04/21 02/04/21 Range/Units 06:59 07:50 09:49 WBC (3.8-10.6) k/uL Neutrophils # (1.3-7.7) k/uL Potassium (3.5-5.5) mmol/L Anion Gap (4.00-12.00) mmol/L BUN/Creatinine Ratio (12.00-20.00) Ratio Glucose (70-110) mg/dL POC Glucose (mg/dL) 154 H 142 H 140 H (75-99) mg/dL Calcium (8.7-10.3) mg/dL MARY ANN Screen (NEGATIVE) 02/04/21 02/04/21 Range/Units 11:04 13:05 WBC (3.8-10.6) k/uL Neutrophils # (1.3-7.7) k/uL Potassium (3.5-5.5) mmol/L Anion Gap (4.00-12.00) mmol/L BUN/Creatinine Ratio (12.00-20.00) Ratio Glucose (70-110) mg/dL POC Glucose (mg/dL) 173 H 187 H (75-99) mg/dL Calcium (8.7-10.3) mg/dL MARY ANN Screen (NEGATIVE) Microbiology - Last 24 Hours (Table) 02/01/21 23:45 Urine Culture - Final Urine,Voided Enterococcus faecalis 02/01/21 23:06 Blood Culture - Preliminary Blood No Growth after 48 hours 02/01/21 22:47 Blood Culture - Preliminary Blood No Growth after 48 hours Assessment and Plan Assessment: * Unilateral onset complete vision loss of the left eye (10 days ago prior to present to hospital). Unknown exactly etiology. Although the ESR and CRP are normal, but client resource specialist is concerned about temporal arteritis. I feel it seems suspicious for stroke (two imaging of brain is negative for acute or subacute ischemia. Not sure if was too small to pick-up). * New onset scleral vascular congestion of the right eye, unclear etiology. * Hypertension * Diabetes * X tobacco use Plan: * Pending left temporal artery biopsy result. * Patient is currently on ASA 81mg. Recommend adding Plavix 75mg daily in addition to ASA in two days since patient had biopsy to prevent bleed (patient to be on dual antiplatelets for 21 days then can stop Plavix). Will increase Lipitor 10mg qhs to 40mg daily for secondary stroke prophylaxis. * Has positive MARY ANN. Recommend antiDsDNA abs testing and following-up with [facility] (per primary team she will follow-up within 1 week as outpatient). Recommend an event monitor. * Ophthalmology input appreciated. * Patient currently on Solu-Medrol 1000 mg daily. * pending NMO antibodies and MOG antibodies as recommended by client resource specialist. * Will defer the rest of medical management to the primary team. * For DVT prophylaxis: On subq heparin 5000U every 12 hours. * Recommend patient to follow-up with a neurologist within 1-2 weeks as outpatient. The plan is discussed with the patient and her nurse. Rakesh Nelson MD Neuro-Hospitalist. Time with Patient: Less than 30
[2021-02-04] MEDS ORDERED: IBUPROFEN 800 MG TAB PO PRN (16:00)
[2021-02-04] MEDS ORDERED: INSULIN ASPART (NovoLOG) 100 UNIT/ML VIAL SQ SCH (17:30)
--- NOTE | 2021-02-04 21:01 | DS ---
DISCHARGE SUMMARY DATE OF SERVICE: 02/04/2021 FINAL DIAGNOSES: 1. Left eye vision loss, possible optic neuritis, status post high-dose IV steroids empirically. 2. Increased white count. 3. Status post temporal artery biopsy from left side. 4. Rule out giant cell arteritis. 5. History of asthma. 6. Diabetes mellitus, type 2, uncontrolled, with hyperglycemia, possibly steroid- induced, status post IV insulin drip. 7. History of possible sphenoid sinusitis. 8. History of degenerative joint disease. 9. History of bilateral shoulder dislocation. 10.History of MRSA. 11.History of cholecystectomy. 12.History of hernia surgery. 13.Anxiety. 14.Remote history of nicotine dependence. 15.FULL CODE. DISCHARGE DISPOSITION: The patient will be discharged in stable condition with guarded prognosis. Total time taken 35 minutes. HISTORY OF PRESENT ILLNESS: This 60-year-old woman with a past medical history of multiple medical problems, being followed by Dr. Gonzalez in the outpatient setting, was admitted with visual loss in the left eye. The patient was evaluated by Ophthalmology. Multiple consultants, including Neurology, ENT, Infectious Disease, Ophthalmology, saw the patient and followed the patient closely. Basically the labs, including MRI and angiography, did not show acute abnormality. The blood sugar was elevated because IV steroids that were given. Elevated blood sugar is being corrected at this time. MARY ANN screen was positive. COVID-19 was negative. Recommend close outpatient followup with Rheumatology, also. On exam, vitals are stable. CARDIOVASCULAR: S1, S2 muffled. Abdomen soft. NERVOUS SYSTEM: Left eye vision diminished. The patient will be discharged in stable condition with guarded prognosis. As mentioned earlier, temporal artery biopsy was done and biopsy report will be followed up in the outpatient setting. Labs are noted and reviewed. WBC 13.8 and sodium 142. MARY ANN is positive. Sedimentation rate is 20, CRP is 0.7. DISCHARGE ADVICE AND MEDICATIONS: 1. Diet is cardiac. 2. Activity limited until followup. 3. Follow up with Dr. Gonzalez in 2 to 3 days. 4. Follow up with Dr. Curtis as recommended. 5. Follow up with Dr. Simmons as recommended. 6. Follow up with Dr. Armenta as recommended. 7. Follow up with Dr. Briscoe as recommended. 8. Follow up with Dr. Summers as recommended. 9. Follow up with Dr. Arellano as recommended. 10.Celebrex 200 mg p.o. b.i.d. 11.Celexa 40 mg p.o. daily. 12.Cymbalta 30 mg p.o. daily. 13.Fluticasone 2 sprays daily. 14.Metformin 1000 mg p.o. b.i.d. 15.Humulin R p.r.n. 16.Neurontin at bedtime. 17.Aspirin 81 mg p.o. daily. 18.Augmentin 875 mg p.o. b.i.d. for 5 days. 19.Lantus increased of 30 units subcutaneously at bedtime. 20.Accu-Cheks before meals and at bedtime and continued followup and adjustment of insulin as an outpatient. 21.Lipitor 40 mg at bedtime. 22.Motrin 600 mg t.i.d. p.r.n. 23.Norvasc 5 mg p.o. daily. 24.Plavix 75 mg p.o. daily. 25.Prednisone 60 mg daily for 2 weeks and then 50 mg daily for 2 weeks and then taper. 26.Follow up with Rheumatology and multiple consultants, including Neurology, as an outpatient. 27.Protonix 40 mg p.o. daily. Once again, the patient will be discharged in stable condition, but overall prognosis remains extremely guarded because of the above-mentioned complex medical issues. Follow up with multiple consultants as recommended. Discussed with the patient and family at length, who understand and agree. TRACEY / OXANA: [id number] / JYOTI
[2021-02-05] MEDS ORDERED: ATORVASTATIN 40 MG TAB PO SCH (09:00)
== END 2021-02-04 15:56 | disposition home or self-care (01) | DRG 115 ==
LOC: EC 16:33 → 5NMEDONC 18:06
PROVIDERS: ADMIT Hospitalist; ATTEND Hospitalist
PROC: 03BT0ZX Excision of Left Temporal Artery, Open Approach, Diagnostic (ICD-10-PCS; principal; 2021-02-04 12:00)
DX: H46.9 Unspecified optic neuritis (principal); E11.65 Type 2 diabetes mellitus with hyperglycemia; E78.00 Pure hypercholesterolemia, unspecified; F41.9 Anxiety disorder, unspecified; H53.002 Unspecified amblyopia, left eye; H65.92 Unspecified nonsuppurative otitis media, left ear; I10 Essential (primary) hypertension; J32.3 Chronic sphenoidal sinusitis; J45.909 Unspecified asthma, uncomplicated; M19.90 Unspecified osteoarthritis, unspecified site; M95.0 Acquired deformity of nose; Z20.822 Contact with and (suspected) exposure to COVID-19; Z79.1 Long term (current) use of non-steroidal anti-inflammatories (NSAID); Z79.4 Long term (current) use of insulin; Z79.82 Long term (current) use of aspirin; Z79.84 Long term (current) use of oral hypoglycemic drugs; Z79.899 Other long term (current) drug therapy; Z80.52 Family history of malignant neoplasm of bladder; Z82.49 Family history of ischemic heart disease and other diseases of the circulatory system; Z86.14 Personal history of Methicillin resistant Staphylococcus aureus infection; Z87.891 Personal history of nicotine dependence; Z90.49 Acquired absence of other specified parts of digestive tract; Z98.890 Other specified postprocedural states
CPT/HCPCS: 70250; 70496; 70498; 70543; 70551; 80048; 84207; 85025; 85652; 86038; 86039; 86140; 86431; 87040; 87077; 87086; 87186; 87635; 88305; 96365; 99284

== ENCOUNTER 2021-05-21 06:08 | Day surgery (SDC) | payer OTHER ==
[2021-05-20 09:14] VITALS: BMI 28.7
[2021-05-21] MEDS ORDERED: LIDOCAINE 1% (10MG/ML) FOR IV START INTRADERMA PRN (06:17)
[2021-05-21] MEDS ORDERED: LACTATED RINGERS 1,000 ML IV SCH (06:17)
[2021-05-21 06:40] VITALS: TEMP 97.6
[2021-05-21 06:47] LABS: Glucose,Whole Blood 114 mg/dL (75-99)
[2021-05-21] MEDS ORDERED: PROPOFOL 10 MG/ML 20 ML VIAL IV ONE (07:03)
[2021-05-21] MEDS ORDERED: LIDOCAINE 1% INJ 10MG/ML (20 ML MDV) ONE (07:03)
--- NOTE | 2021-05-21 07:29 | P.PCN ---
Date of Procedure: 05/21/21 Procedure(s) Performed: Brief history: Patient is a pleasant 60-year-old white female scheduled for an elective upper endoscopy as well as colonoscopy as a part of evaluation of iron deficiency anemia. She denies any GI symptoms. Procedure performed: Esophagogastroduodenoscopy biopsy Colonoscopy with biopsy and snare polypectomy Preoperative diagnosis: Iron Deficiency anemia Anesthesia: [facility] [place] Procedure: After informed consent was obtained from the patient was brought into the endoscopy unit and IV sedation was administered by anesthesia under continuous monitoring. Initially upper endoscopy was done. The Olympus GF 160 video endoscope was inserted inserted into the mouth and esophagus intubated without any difficulty and was gradually advanced into the stomach and duodenum and carefully examined. The bulb and second part of the duodenum appeared normal. Biopsies were done from the duodenum to rule out celiac disease. The scope was then withdrawn into the stomach adequately insufflated with air and upon careful examination the antrum had scattered erosions and few areas of linear erythema in the body the stomach which were biopsied. Rest of the body, cardia and fundus appeared normal. The scope was then withdrawn into the esophagus. The GE junction was located at 39 cm to the incisors. It appeared regular with no erythema erosions or ulcerations. Rest of the esophagus appeared normal. Patient tolerated the procedure well. At this time the patient continued to remain sedation. Initial digital rectal examination was normal. Olympus CF 160 video colonoscope was then inserted into the rectum and gradually advanced to the cecum without any difficulty. Careful examination was performed as the scope was gradually being withdrawn. The prep was excellent. The cecum, we normal. Ascending colon there was a 3-4 mm sessile polyp removed by cold biopsy. In the hepatic flexure there was a 3 mm polyp removed by cold biopsy. Rest of the ascending colon, transverse colon, descending colon, sigmoid colon and rectum appeared normal. In the rectum there was a 5 mm and 1 cm polyps removed by snare polypectomy. Retroflexion was performed in the rectum and no lesions were noted. Patient tolerated the procedure well. Impression: 1. Upper endoscopy revealed antral erosive gastritis but no evidence of peptic ulcer disease 2. Colonoscopy revealed 3 mm and 4 mm sessile ascending colon and hepatic flexure polyps status post cold biopsy and a 1 cm rectal polyp status post polypectomy Recommendations: Findings of this examination were discussed with the patient as well as her family. She was advised to follow with the biopsy results. Start iron supplements on a regular basis. If the biopsy of the colon polyps tubular adenoma she can have a repeat colonoscopy in 3 years.
[2021-05-21 07:34] VITALS: RESP 16
[2021-05-21 07:47] VITALS: BP 155/82; PULSE 85
== END 2021-05-21 08:17 | disposition home or self-care (01) ==
LOC: ORWHC2ENDO 06:08
PROVIDERS: ATTEND Internal Medicine Gastroenterology
DX: K29.50 Unspecified chronic gastritis without bleeding (principal); D12.2 Benign neoplasm of ascending colon; D12.8 Benign neoplasm of rectum; K63.5 Polyp of colon; D50.9 Iron deficiency anemia, unspecified; J45.909 Unspecified asthma, uncomplicated; Z87.891 Personal history of nicotine dependence; E11.9 Type 2 diabetes mellitus without complications; F41.9 Anxiety disorder, unspecified; K21.9 Gastro-esophageal reflux disease without esophagitis; Z98.890 Other specified postprocedural states; Z97.2 Presence of dental prosthetic device (complete) (partial); Z79.899 Other long term (current) drug therapy; Z79.84 Long term (current) use of oral hypoglycemic drugs; Z79.4 Long term (current) use of insulin; Z88.1 Allergy status to other antibiotic agents; Z88.8 Allergy status to other drugs, medicaments and biological substances; Z91.09 Other allergy status, other than to drugs and biological substances
CPT/HCPCS: 88305; 45380; 45385; 43239; J2001; J2704

== ENCOUNTER → 2021-11-20 | Outpatient (CLI) | payer OTHER ==
--- NOTE | 2021-11-20 13:00 | MR ---
EXAMINATION TYPE: MR brain wo con DATE OF EXAM: 11/20/2021 COMPARISON: MRI brain February 03, 2021. HISTORY: nerve palsy. TECHNIQUE: Multiplanar, multisequence imaging of the brain and brainstem is performed without IV cont rast. FINDINGS: Diffusion weighted images demonstrate no evidence of a recent infarct or other diffusion abnormality. There is mild ventricular and sulcal prominence. Some scattered small T2 hyperintense lesions through out the white matter bilaterally. Approximately 10-15 scattered lesions are again seen. Lesions are n onspecific in appearance and distribution. Midline structures redemonstrate normal morphology. The craniocervical junction appears within diamond l limits. Normal vascular flow voids are present. Mild mucosal thickening ethmoid sinuses bilaterally redemonstrated. Globes are intact bilaterally. Lateral rectus muscles appear symmetric and within no rmal limits. IMPRESSION: No MRI evidence for recent infarct. Mild diffuse age-related cerebral atrophy and chronic small vessel ischemic change redemonstrated without significant interval change. Improved paranasal sinus disease and right mastoiditis in the interval.
== END | disposition home or self-care (01) ==
LOC: RADMRIMAIN 08:02
PROVIDERS: ATTEND Ophthalmology
DX: H49.22 Sixth [abducent] nerve palsy, left eye (principal)
CPT/HCPCS: 70551

== ENCOUNTER → 2022-01-31 | Outpatient (CLI) | payer OTHER ==
--- NOTE | 2022-02-01 02:40 | MR ---
EXAMINATION TYPE: MR MRA/MRV head wo con DATE OF EXAM: 01/31/2022 COMPARISON: None HISTORY: Sixth nerve palsy, left eye loss of sight, headache MR angiographic images were obtained of the intracerebral arterial circulation. There is arterial flow in the anterior middle and posterior cerebral arteries. There is no mass effec t. No evidence of intracranial aneurysm or neovascularity. No evidence of intracranial arterial steno sis. There is arterial flow in both distal internal carotid arteries. There is arterial flow in the v ertebrobasilar artery system. There is wide patency of the posterior communicating arteries. IMPRESSION: Negative MR angiogram of the brain. MR venographic images of the right were obtained without contrast. There is normal venous flow signal pattern demonstrated in the sagittal sinus and the cerebral vein. There is venous flow demonstrated in the sigmoid sinus and transverse sinus. No evidence of thrombosi s. No mass effect. IMPRESSION: Negative MR venogram of the brain.
== END | disposition home or self-care (01) ==
LOC: RADMRIMAIN 08:35
PROVIDERS: ATTEND Family Medicine
DX: I63.6 Cerebral infarction due to cerebral venous thrombosis, nonpyogenic (principal); R51.9 Headache, unspecified
CPT/HCPCS: 70544

== ENCOUNTER → 2022-07-02 | Outpatient (CLI) | payer OTHER ==
--- NOTE | 2022-07-10 19:39 | CA ---
Transthoracic Echo Report Name: Rosario Pierre Age: 62 Gender: F : 1960 Exam Date: 07/10/2022 15:05 Exam Location: [facility] Ht (in): 70 Wt (lb): 230 Ordering Physician: Benito Gonzalez DO Attending/Referring Phys: Benito Gonzalez DO Sweatband Flanger Sloan Patel RDCS Procedure CPT: Indications: r609 Cardiac Hx: HTN; DM; High Chol; Intestinal occlusion Technical Quality: Fair Contrast 1: Total Dose (mL): Contrast 2: Total Dose (mL): MEASUREMENTS (Male / Female) Normal Values 2D ECHO LV Diastolic Diameter PLAX 3.7 cm 4.2 - 5.9 / 3.9 - 5.3 cm LV Systolic Diameter PLAX 2.7 cm LV Fractional Shortening PLAX 25.3 % IVS Diastolic Thickness 1.1 cm 0.6 - 1.0 / 0.6 - 0.9 cm IVS Systolic Thickness 1.3 cm LVPW Diastolic Thickness 1.3 cm 0.6 - 1.0 / 0.6 - 0.9 cm LVPW Systolic Thickness 1.6 cm LV Relative Wall Thickness 0.7 RV Internal Dim ED PLAX 3.0 cm LVOT Diameter 2.6 cm LA Systolic Diameter LX 2.9 cm 3.0 - 4.0 / 2.7 - 3.8 cm LV Diastolic Volume MOD BP 103.5 cm??? 67 - 155 / 56 - 104 cm??? LV Systolic Volume MOD BP 31.0 cm??? 22 - 58 / 19 - 49 cm??? LV Ejection Fraction MOD BP 70.0 % >= 55 % LV Stroke Volume MOD BP 72.5 cm??? LV Diastolic Volume MOD 4C 116.3 cm??? LV Systolic Volume MOD 4C 41.0 cm??? LV Ejection Fraction MOD 4C 64.7 % LV Stroke Volume MOD 4C 75.3 cm??? LV Diastolic Length 4C 8.1 cm LV Systolic Length 4C 6.4 cm LV Diastolic Volume MOD 2C 92.0 cm??? LV Systolic Volume MOD 2C 22.8 cm??? LV Ejection Fraction MOD 2C 75.2 % LV Stroke Volume MOD 2C 69.1 cm??? LV Diastolic Length 2C 8.1 cm LV Systolic Length 2C 6.1 cm Ascending Aorta Diameter 2.8 cm M-MODE Aortic Root Diameter MM 3.5 cm LA Systolic Diameter MM 2.8 cm LA Ao Ratio MM 0.8 AV Cusp Separation MM 1.8 cm DOPPLER AV Peak Velocity 137.0 cm/s AV Peak Gradient 7.5 mmHg AI Peak Velocity 343.5 cm/s AI Peak Gradient 47.2 mmHg AI Deceleration Rankin 80.6 cm/s??? AI Pressure Half Time 1235.5 ms MV Deceleration Rankin 438.8 cm/s??? MR Peak Velocity 209.5 cm/s MR Peak Gradient 17.6 mmHg Mitral E Point Velocity 71.2 cm/s Mitral A Point Velocity 81.6 cm/s Mitral E to A Ratio 0.9 MV Deceleration Time 162.4 ms MV E' Velocity 8.8 cm/s Mitral E to MV E' Ratio 8.1 TR Peak Velocity 100.8 cm/s TR Peak Gradient 4.1 mmHg Right Ventricular Systolic Press 12.1 mmHg PV Peak Velocity 97.3 cm/s PV Peak Gradient 3.8 mmHg FINDINGS Left Ventricle Left ventricular ejection fraction is estimated at _55-60%. Grade 1 diastolic dysfunction. Normal basal systolic function. Right Ventricle Normal right ventricular size and function. Right Atrium Normal right atrial size. Left Atrium Mild left atrial dilatation. Mitral Valve Structurally normal mitral valve. [id number] mitral regurgitation. Aortic Valve Trileaflet aortic valve. No aortic stenosis. Mild aortic regurgitation. Tricuspid Valve Mild tricuspid regurgitation. Pulmonic Valve Pulmonic valve not well visualized. Pericardium Normal pericardium. No pericardial effusion. Aorta Normal size aortic root and proximal ascending aorta. CONCLUSIONS Technically difficult study for interpretation Normal LV systolic function [id number] mitral regurgitation Mild aortic insufficiency Previewed by: Dr. Prakash Chavez MD (Electronically Signed) Final Date: 10 July 2022 19:38
== END | disposition home or self-care (01) ==
LOC: RADECHMAIN 16:05
PROVIDERS: ATTEND Family Medicine
DX: Z53.9 Procedure and treatment not carried out, unspecified reason (principal); R60.9 Edema, unspecified; R06.02 Shortness of breath

== ENCOUNTER → 2022-07-23 | Outpatient (CLI) | payer OTHER ==
--- NOTE | 2022-07-24 08:31 | XR ---
EXAMINATION TYPE: XR chest 2V DATE OF EXAM: 07/23/2022 COMPARISON: NONE TECHNIQUE: PA and lateral views submitted. HISTORY: Shortness of breath FINDINGS: The lungs are clear and there is no pneumothorax, pleural effusion, or focal pneumonia. Heart size normal and no overt failure. Osseous structures demonstrate hypertrophic and degenerative changes of the spine. Altered level age indeterminate compression fractures within the thoracic spine. Heart rem ains enlarged and there is a prominence along the right cardiac border. IMPRESSION: 1. No acute process. Cardiomegaly with prominence of the right cardiac border. The stable dating back to [address] and [address] of the chest is recommended to determine if this is related to a cardiac phrenic angle mass, pericardial cyst, cardiac chamber enlargement or other possible etio logy.
== END | disposition home or self-care (01) ==
LOC: RADXRYALE 16:41
PROVIDERS: ATTEND Family Medicine
DX: I51.7 Cardiomegaly (principal); R06.02 Shortness of breath
CPT/HCPCS: 71046

== ENCOUNTER → 2022-08-04 | Outpatient (CLI) | payer OTHER ==
--- NOTE | 2022-08-04 10:03 | CT ---
EXAMINATION TYPE: CT chest wo con CT DLP: 585 mGycm, Automated exposure control for dose reduction was used. DATE OF EXAM: 08/04/2022 9:53 AM COMPARISON: Chest radiograph 07/23/2022 CLINICAL INDICATION:Female, 62 years old with history of I10, lung nodule TECHNIQUE: Multiple axial images were obtained through the chest. Sagittal and coronal reformats were created for review. Contrast used: none. Oral contrast used: none. FINDINGS: LUNGS/ PLEURA: The lung parenchyma appears unremarkable. No suspicious solid masses or pulmonary nodu les. There are scattered centrilobular and paraseptal emphysema changes. Right upper lobe 3 mm pulmon dandre nodule series 4 image 18 AIRWAY: Patent and unremarkable. HEART: Size within normal limits. MEDIASTINUM: No gross evidence of adenopathy. Pericardial cyst measuring 6.4 x 2.8 cm VASCULATURE: No aortic aneurysm. MUSCULOSKELETAL: Moderate to severe degeneration changes of the spine with wedge compression of T6-T9 . No evidence for significant spinal canal or neural foraminal stenosis. There is at least moderate multilevel neural foraminal stenosis worse at T9-T10 on the bilaterally SOFT TISSUES/LYMPH NODES: Unremarkable. LOWER NECK: No significant findings. UPPER ABDOMEN: Diffuse low-attenuation to the liver parenchyma. IMPRESSION: 1. Prominence of the right heart border correlates with a cystic lesion likely representing benign p ericardial cyst. No clinically significant pulmonary nodules. 2. Mild emphysema changes. 3. Significant degeneration changes in the mid thoracic spine with multilevel wedge compression defo rmities from T6 to T9 worse in the lower aspects of this range. If there is concern for acute thoraci c wedge compression deformity consider evaluation with MRI. 4. T9-T10 moderate bilateral neural foraminal stenosis
== END | disposition home or self-care (01) ==
LOC: RADCTMAIN 08:49
PROVIDERS: ATTEND Family Medicine
DX: J43.2 Centrilobular emphysema (principal); M48.54XA Collapsed vertebra, not elsewhere classified, thoracic region, initial encounter for fracture; R59.0 Localized enlarged lymph nodes; M47.814 Spondylosis without myelopathy or radiculopathy, thoracic region; M99.72 Connective tissue and disc stenosis of intervertebral foramina of thoracic region; R93.89 Abnormal findings on diagnostic imaging of other specified body structures
CPT/HCPCS: 71250

== ENCOUNTER → 2022-12-03 | Outpatient (CLI) | payer OTHER ==
[~2022-12-03] MED LIST changes: -ACETAMINOPHEN TAB 500 MG TAB PO ONE; -GABAPENTIN 300 MG CAP PO ONE; +IRON SUCROSE 200 MG in SODIUM CHLORIDE 0.9% 100 ML IVPB NR; -MELOXICAM 7.5 MG TAB PO ONE; +SODIUM CHLORIDE 0.9% 500 ML 500 ML in EMPTY BAG 1 BAG IV PRN; -TRANEXAMIC ACID 1,000 MG in SODIUM CHLORIDE 0.9% 100 ML IVPB ONE
[2022-12-03 11:41] VITALS: BP 116/65; PULSE 76; RESP 16; TEMP 97.8
== END ==
LOC: PROCWHC3 11:20
PROVIDERS: ATTEND Family Medicine
DX: D50.9 Iron deficiency anemia, unspecified (principal)
CPT/HCPCS: 96365; J1756

== ENCOUNTER → 2023-01-19 | Outpatient (CLI) | payer OTHER ==
--- NOTE | 2023-01-19 15:53 | XR ---
EXAMINATION TYPE: XR facial bones limited DATE OF EXAM: 01/19/2023 COMPARISON: NONE HISTORY: Pain TECHNIQUE: 4 views submitted FINDINGS: There is soft tissue attenuation within the bilateral maxillary sinuses. Degenerative wiggins e of the cervical spine. Diffuse osteopenia. Question subtle deformity of the right inferior wall orb it. IMPRESSION: Questionable subtle form involving the right orbit. Recommend CT of the facial bones. A Yellow level critical message alert has been initiated for Benito Gonzalez DO via the [employer] Critical Results System on 01/19/2023 3:51 PM. This message alert has been sent to Benito kaufman DO via the preferences provided by the clinician for the receipt of Radiology Critical Findings. Message ID [id number].
== END | disposition home or self-care (01) ==
LOC: RADXRYALE 15:21
PROVIDERS: ATTEND Family Medicine
DX: S00.83XA Contusion of other part of head, initial encounter (principal)
CPT/HCPCS: 70140

== ENCOUNTER → 2023-04-08 | Outpatient (CLI) | payer OTHER ==
--- NOTE | 2023-04-08 20:29 | MM ---
Reason for Exam: Screening (asymptomatic). Last mammogram was performed 2 year(s) and 2 month(s) ago. Patient History: Menarche at age 15. First Full-Term at age 23. Right ovary removed at age 36. Hysterectomy at age 36. Postmenopausal. Estrogen, starting at age 45 for 3 years. Progesterone, starting at age 45 for 3 years. 1985, Benign Excisional Biopsy on the right side. Maternal aunt had breast cancer, age 40. Risk Values: Rhonda 5 year model risk: 1.5%. NCI Lifetime model risk: 6.7%. Prior Study Comparison: 08/23/2018 Bilateral Screening Mammogram, [facility]. 12/26/2019 Bilateral Screening Mammogram, [facility]. 01/29/2021 Bilateral Screening Mammogram, [facility]. Tissue Density: The breast tissue is heterogeneously dense. This may lower the sensitivity of mammography. Findings: Analyzed By CAD. Unchanged global asymmetry superior left MLO view. There is no suspicious group of microcalcifications or new suspicious mass in either breast. Overall Assessment: Benign, BI-RAD 2 Management: Screening Mammogram of both breasts in 1 year. . Patient should continue monthly self-breast exams. A clinical breast exam by your physician is recommended on an annual basis. This exam should not preclude additional follow-up of suspicious palpable abnormalities. Note on Rhonda scores and lifetime risk: 1. A Rhonda score greater than 3% is considered moderate risk. If this is the case, consider specialist referral to assess eligibility for a risk reducing agent. 2. If overall lifetime risk for the development of breast cancer is 20% or higher, the patient may qualify for future screening with alternating mammogram and breast MRI. Electronically signed and approved by: Bubba Guzman M.D. Radiologist
== END | disposition home or self-care (01) ==
LOC: RADMAMWWP 09:38
PROVIDERS: ATTEND Family Medicine
DX: Z12.31 Encounter for screening mammogram for malignant neoplasm of breast (principal); Z80.3 Family history of malignant neoplasm of breast; Z78.0 Asymptomatic menopausal state
CPT/HCPCS: 77067

== ENCOUNTER → 2024-06-26 | Outpatient (CLI) | payer OTHER ==
--- NOTE | 2024-06-26 12:53 | MM ---
Reason for Exam: Screening (asymptomatic). Last mammogram was performed 1 year(s) and 3 month(s) ago. Patient History: Menarche at age 15. First Full-Term at age 23. Right ovary removed at age 36. Hysterectomy at age 36. Postmenopausal. Estrogen, starting at age 45 for 3 years. Progesterone, starting at age 45 for 3 years. 1985, Benign Excisional Biopsy on the right side. Maternal aunt had breast cancer, age 40. Risk Values: Rhonda 5 year model risk: 1.6%. NCI Lifetime model risk: 6.3%. Prior Study Comparison: 12/26/2019 Bilateral Screening Mammogram, [facility]. 01/29/2021 Bilateral Screening Mammogram, [facility]. 04/08/2023 Bilateral MG screening mammo w CAD, [facility]. Tissue Density: The breasts are heterogeneously dense, which may obscure small masses. Findings: Analyzed By CAD. There are 2 small benign-appearing round calcifications in the left breast redemonstrated. There is no suspicious group of microcalcifications or new suspicious mass in either breast. Overall Assessment: Benign, BI-RAD 2 Management: Screening Mammogram of both breasts in 1 year. . Patient should continue monthly self-breast exams. A clinical breast exam by your physician is recommended on an annual basis. This exam should not preclude additional follow-up of suspicious palpable abnormalities. Note on Rhonda scores and lifetime risk: 1. A Rhonda score greater than 3% is considered moderate risk. If this is the case, consider specialist referral to assess eligibility for a risk reducing agent. 2. If overall lifetime risk for the development of breast cancer is 20% or higher, the patient may qualify for future screening with alternating mammogram and breast MRI. [facility], , 06/26/2024 12:49 PM. Electronically signed and approved by: Link Bradford M.D.
== END | disposition home or self-care (01) ==
LOC: RADMAMWWP 12:01
PROVIDERS: ATTEND Family Medicine
DX: Z12.31 Encounter for screening mammogram for malignant neoplasm of breast (principal); R92.333 Mammographic heterogeneous density, bilateral breasts; R92.1 Mammographic calcification found on diagnostic imaging of breast; Z78.0 Asymptomatic menopausal state; Z80.3 Family history of malignant neoplasm of breast
CPT/HCPCS: 77067